=== PATIENT | female | born 1940 | race Caucasian/White ===

== ENCOUNTER 2023-01-20 16:14 | Outpatient (REF) | payer MEDICARE, SELFPAY ==
[2023-01-20 16:47] LABS: Bilirubin Urine NEGATIVE (NEGATIVE); Blood Urine TRACE-L (NEGATIVE); Clarity Urine CLEAR (CLEAR); Color Urine LT. YELLOW (YELLOW); Glucose Urine UA NEGATIVE (NEGATIVE); Ketones Urine NEGATIVE (NEGATIVE); Leukocyte Esterase Urine NEGATIVE (NEGATIVE); Nitrite Urine NEGATIVE (NEGATIVE); Protein Urine NEGATIVE (NEG/TRACE)
[2023-01-20 16:51] LABS: Urine Microscopic Indicated YES
[2023-01-20 17:11] LABS: Bacteria Urine NONE SEEN #/HPF (NONE SEEN); Cast Seen? NONE SEEN #/LPF (NONE SEEN); Crystals Seen? None Seen #/HPF (None Seen); Mucus Urine NONE SEEN (NONE SEEN); RBC Urine 0-2 #/HPF (0-2); Squamous Epithelial Cell Urine RARE #/LPF (NONE/RARE); WBC Urine NONE SEEN #/HPF (NONE SEEN)
[2023-01-20 17:12] LABS: Urine Culture Indicated NO
== END 2023-01-20 16:15 | disposition home or self-care (01) ==
LOC: LAB 16:14
PROVIDERS: Visit Provider Family Medicine
DX: R41.82 Altered mental status, unspecified (principal); Z87.440 Personal history of urinary (tract) infections
CPT/HCPCS: 81001

== ENCOUNTER 2023-06-04 21:00 | Outpatient (REF) | payer MEDICARE, SELFPAY ==
[2023-06-05 14:35] LABS: Bilirubin Urine NEGATIVE (NEGATIVE); Blood Urine SMALL (NEGATIVE); Clarity Urine CLEAR (CLEAR); Color Urine LT. YELLOW (YELLOW); Glucose Urine UA NEGATIVE (NEGATIVE); Ketones Urine NEGATIVE (NEGATIVE); Leukocyte Esterase Urine SMALL (NEGATIVE); Nitrite Urine NEGATIVE (NEGATIVE); Protein Urine NEGATIVE (NEG/TRACE)
== END 2023-06-05 13:13 | disposition home or self-care (01) ==
LOC: LAB 21:00
PROVIDERS: Visit Provider Family Medicine
DX: R35.0 Frequency of micturition (principal); R41.0 Disorientation, unspecified
CPT/HCPCS: 81003; 87086; 87150; 87186

== ENCOUNTER 2023-06-10 11:32 | Outpatient (OUT) | payer MEDICARE, SELFPAY ==
[2023-06-10 14:18] LABS: Hematocrit 30.6 % (36.0-48.0); Hemoglobin 9.2 g/dL (12.0-16.0); Mean Corpuscular HGB Conc 30.1 g/dL (29.9-35.2); Mean Corpuscular Hemoglobin 22.8 pg (26.7-34.0); Mean Corpuscular Volume 75.7 fL (81.0-99.0); Mean Platelet Volume 10.3 fL (9.5-13.5); Platelet Count 188 10^3/uL (150-450); Red Blood Count 4.04 10^6/uL (4.20-5.40); Red Cell Distribution Width 19.6 % (11.0-15.0); White Blood Count 5.1 10^3/uL (4.0-11.0)
[2023-06-10 15:52] LABS: Alanine Aminotransferase 11 U/L (14-59); Albumin Globulin Ratio 0.5; Albumin Level 2.7 g/dL (3.4-5.0); Alkaline Phosphatase 161 U/L (46-116); Anion Gap 6.6; Aspartate Amino Transferase 20 U/L (15-37); BUN Creatinine Ratio 14.5; Bilirubin Total 1.4 mg/dL (0.2-1.0); Calcium 8.7 mg/dL (8.5-10.1); Carbon Dioxide 28.1 mmol/L (21.0-32.0); Chloride 100 mmol/L (98-107); Estimated GFR (African America >60 (>=60); Estimated GFR (Non-African Ame >60 (>=60); Glucose 94 mg/dL (74-106); Potassium 3.7 mmol/L (3.5-5.1); Sodium 131 mmol/L (136-145); Total Protein 7.7 g/dL (6.4-8.2)
== END 2023-06-10 11:33 | disposition home or self-care (01) ==
LOC: LAB 11:35
PROVIDERS: Visit Provider Family Medicine
DX: I50.22 Chronic systolic (congestive) heart failure (principal); E83.42 Hypomagnesemia
CPT/HCPCS: 36415; 80053; 83735; 83880; 85027

== ENCOUNTER 2023-06-11 10:44 | Inpatient (IN) | payer MEDICARE, SELFPAY ==
[2023-06-11] VITALS (35 sets, daily range): BP systolic 111–140; BP diastolic 48–91; PULSE 74–166; RESP 13–29; TEMP 36.6–37.2; O2SAT 93–100; BMI 28.3; BMI 92.1
--- NOTE | 2023-06-11 10:56 | ECG_ITS ---
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
--- NOTE | 2023-06-11 10:57 | XR_ITS ---
The [address] [address] Patient Name: SUJATA BERRIOS MRN: [id number] date: 1940 Sex: F Assigned Patient Location: ER Current Patient Location: ED.MAIN Accession/Order Number: [id number] Exam Date: 06/11/2023 11:18 Report Date: 06/11/2023 11:40 At the request of: MICHELET TREVIZO Procedure: XR chest 1V EXAMINATION: XR chest 1V HISTORY: SOB COMPARISON: No relevant comparison available. FINDINGS: LUNGS: Dense opacities within lung bases obscuring the heart and diaphragm margins. VASCULATURE: No increased pulmonary vasculature. PLEURA: No pneumothorax. Pleural effusions cannot be excluded. CARDIAC: Obscured, but suspect cardiomegaly. MEDIASTINUM: No visible mass or adenopathy. BONES: No fracture or visible bone lesion. OTHER: Negative. XR/XR chest 1V IMPRESSION: 1. Complete opacification of the lower third of the lungs bilaterally of uncertain etiology; bilateral pleural effusions and atelectasis versus multifocal pneumonia. Underlying mass cannot be excluded. 2. Suspect cardiomegaly. Electronically authenticated by: MÓNICA DOBSON Date: 06/11/2023 11:40
--- NOTE | 2023-06-11 11:03 | ED_ITS ---
HPI - SOB/Dyspnea General Chief Complaint: Shortness of Breath/Dyspnea Stated Complaint: SOB Time Seen by Provider: 06/11/23 10:51 Source: other Source comment: EMS Mode of arrival: ambulance History of Present Illness HPI Narrative: 82-year-old female presents to the emergency department for shortness of breath. She lives in [facility] and apparently has gained approximately 20 pounds in the last month. She's had increasing shortness of breath and reportedly had a high BNP yesterday. She has not had a known fever. She is not complaining of any pain. Related Data Home Medications Medication Instructions Recorded Confirmed apixaban 5 mg tablet (Eliquis) 5 mg PO Q12H 06/11/23 06/11/23 citalopram 20 mg tablet 20 mg PO DAILY 06/11/23 06/11/23 furosemide 40 mg tablet 40 mg PO Q12H 06/11/23 06/11/23 levothyroxine 25 mcg tablet 25 mcg PO DAILY 06/11/23 06/11/23 losartan 25 mg tablet 25 mg PO DAILY 06/11/23 06/11/23 magnesium citrate,mag oxide 250 mg 400 mg PO DAILY 06/11/23 06/11/23 capsule melatonin 5 mg capsule 5 mg PO DAILY 06/11/23 06/11/23 metoprolol tartrate 25 mg tablet 25 mg PO DAILY 06/11/23 06/11/23 potassium chloride 20 mEq 20 meq PO DAILY 06/11/23 06/11/23 tablet,extended release(part/cryst) quetiapine 25 mg tablet 25 mg PO DAILY 06/11/23 06/11/23 Allergies Allergy/AdvReac Type Severity Reaction Status Date / Time black pepper Allergy Unknown Verified 06/11/23 10:52 Review of Systems ROS Narrative A ten point review of systems is negative except as noted above. Exam Narrative Exam Narrative: Nurses note and vital signs reviewed and patient is not hypoxic. General: The patient appears mildly dyspneic and is hard of hearing. Skin: Warm, dry, no pallor noted. There is no rash noted. Head: Normocephalic, atraumatic Eye: Normal conjunctiva, no drainage Ears, Nose, Mouth, and Throat: oral mucosa is moist. Nares patent. Cardiovascular: Regular Rate and Rhythm Respiratory: bilateral rhonchi present Back: non-tender GI: soft and nontender Musculoskeletal: bilateral lower extremity edema present Neurological: A&O, normal speech Psychiatric: Cooperative Constitutional Vital Signs, click to edit/add: Last Vital Signs Temp 98.9 F 06/11/23 10:46 Pulse 166 H 06/11/23 12:50 Resp 16 06/11/23 12:50 BP 140/84 06/11/23 12:01 Pulse Ox 96 06/11/23 12:50 O2 Del Method Nasal Cannula 06/11/23 11:18 O2 Flow Rate 4 06/11/23 11:18 Course Vital Signs Vital signs: Vital Signs Temperature 98.9 F 06/11/23 10:46 Pulse Rate 74 06/11/23 10:46 Respiratory Rate 24 06/11/23 10:46 Blood Pressure 111/77 06/11/23 10:46 Pulse Oximetry 94 L 06/11/23 10:46 Oxygen Delivery Method Nasal Cannula 06/11/23 10:46 Oxygen Delivery Flow Rate 4 06/11/23 10:46 Temperature 98.9 F 06/11/23 10:46 Pulse Rate 166 H 06/11/23 12:50 Respiratory Rate 16 06/11/23 12:50 Blood Pressure 140/84 06/11/23 12:01 Pulse Oximetry 96 06/11/23 12:50 Oxygen Delivery Method Nasal Cannula 06/11/23 11:18 Oxygen Delivery Flow Rate 4 06/11/23 11:18 MDM - SOB/Dyspnea MDM Narrative Medical decision making narrative: Congestive heart failure with bilateral pleural effusions is identified and she was given IV Lasix and she is being admitted. Findings are discussed with the patient. Differential Diagnosis Differential diagnosis: Likely congestive heart failure, community acquired pneumonia and other (COVID, pulmonary edema) Lab Data Attestation: I reviewed the patient's lab results. Labs: Lab Results 06/11/23 06/11/23 Range/Units 10:55 11:09 WBC 6.0 (4.0-11.0) 10^3/uL RBC 3.81 L (4.20-5.40) 10^6/uL Hgb 8.5 L (12.0-16.0) g/dL Hct 28.9 L (36.0-48.0) % MCV 75.9 L (81.0-99.0) fL MCH 22.3 L (26.7-34.0) pg MCHC 29.4 L (29.9-35.2) g/dL RDW 19.8 H (11.0-15.0) % Plt Count 181 (150-450) 10^3/uL MPV 10.8 (9.5-13.5) fL Neut % (Auto) 47.3 (43.0-75.0) % Lymph % (Auto) 30.4 (20.5-60.0) % [place] % (Auto) 17.6 H (1.7-12.0) % Eos % (Auto) 3.5 (0.9-7.0) % Baso % (Auto) 1.0 (0.2-2.0) % Neut # (Auto) 2.9 (1.4-6.5) 10^3/uL Lymph # (Auto) 1.8 (1.2-3.8) 10^3/uL [place] # (Auto) 1.1 H (0.3-0.8) 10^3/uL Eos # (Auto) 0.2 (0.0-0.7) 10^3/uL Baso # (Auto) 0.1 (0.0-0.1) 10^3/uL Abs Immat Gran (auto) 0.01 (0.00-0.03) 10^3/uL Imm/Tot Granulo (auto) 0.2 (0.0-0.5) % Sodium 142 (136-145) mmol/L Potassium 3.5 (3.5-5.1) mmol/L Chloride 103 (98-107) mmol/L Carbon Dioxide 30.8 (21.0-32.0) mmol/L Anion Gap 11.7 BUN 11.0 (7.0-18.0) mg/dL Creatinine 0.95 (0.55-1.02) mg/dL Est GFR ( Amer) >60 (>=60) Est GFR (Non-Af Amer) 56 L (>=60) BUN/Creatinine Ratio 11.6 Glucose 99 (74-106) mg/dL Calcium 8.4 L (8.5-10.1) mg/dL Troponin I High Sens 21.1 (4.0-51.3) pg/mL NT-Pro-B Natriuret Pep 3130.0 H* (<=1800.0) pg/mL Adenovirus (PCR) Not detected (NOT DETECTE) C. pneumoniae DNA (PCR) Not detected (NOT DETECTE) Coronavirus Type OC43 Not detected (NOT DETECTE) Coronavirus Type HKU1 Not detected (NOT DETECTE) Coronavirus Type 229E Not detected (NOT DETECTE) Coronavirus Type NL63 Not detected (NOT DETECTE) Human Metapneumovir PCR Not detected (NOT DETECTE) M. pneumoniae (PCR) Not detected (NOT DETECTE) Parainfluenza PCR Not detected (NOT DETECTE) Parainfluenza 2 (PCR) Not detected (NOT DETECTE) Parainfluenza 3 (PCR) Not detected (NOT DETECTE) Parainfluenza 4 (PCR) Not detected (NOT DETECTE) RSV (RT-PCR) Not detected (NOT DETECTE) Entero/Rhino (PCR) Not detected (NOT DETECTE) SARS-CoV-2 (PCR) Not detected (NOT DETECTE) Bordetella pertussis (PCR) Not detected (NOT DETECTE) B parapertussis DNA PCR Not detected (NOT DETECTE) Influenza Type A (PCR) Not detected (NOT DETECTE) Influenza Type B (PCR) Not detected (NOT DETECTE) Imaging Data CT scan - chest: Radiologist's impression: ITS Impressions Chest X-Ray 06/11/23 10:57 IMPRESSION: 1. Complete opacification of the lower third of the lungs bilaterally of uncertain etiology; bilateral pleural effusions and atelectasis versus multifocal pneumonia. Underlying mass cannot be excluded. 2. Suspect cardiomegaly. Electronically authenticated by: MÓNICA DOBSON Date: 06/11/2023 11:[address] 06/11/23 12:02 IMPRESSION: 1. Consistent with earlier same day chest radiograph, there are are bilateral pleural effusions, large on the right and moderately large on the left, with associated compressive atelectasis. There is also mild cardiomegaly, diffuse body wall edema and mild diffuse interstitial edema in the lungs. Overall findings most consistent with CHF and volume overload. 2. Airspace consolidation in the posterior lower lobes likely compressive atelectasis. Less likely pulmonary infection cannot be entirely excluded, correlate clinically. 3. Nodular pleural thickening lateral right upper lobe up to 5 mm, and small right middle lobe nodule of 4 mm. Six-month follow-up CT is recommended for stability assurance. 4. Limited upper abdominal images show contrast reflux into the intrahepatic IVC, as well as a small pericardial effusion, findings also consistent with CHF. The most caudal portions of the posterior costophrenic sulci are not fully included in the scanned volume. Electronically authenticated by: CAITIE SOTO Date: 06/11/2023 13:21 ECG Data Attestation: I personally reviewed and interpreted this ECG as follows: (EKG on my interpretation shows atrial fibrillation) Critical Care Time Critical Care Time Critical Care Time: Yes Total Critical Care Time: 35 Attestation: Due to the high probability of sudden and clinically significant deterioration in the patient's condition he/she required the highest level of my preparedness to intervene urgently I provided critical care time including documentation time, medication orders and management, reevaluation, vital sign assessment, ordering and reviewing of lab tests, ordering and reviewing of x-ray studies, and admission orders. Aggregate critical care time is 35 minutes including only time during which I was engaged in work directly related to his/her care and did not include time spent treating other patients simultaneously. Discharge Plan Discharge Chief Complaint: Shortness of Breath/Dyspnea Clinical Impression: Congestive heart failure, Pleural effusion Patient Disposition: Admitted As Inpatient Time of Disposition Decision: 13:29 Condition: Good
[2023-06-11 11:10] LABS: Basophils Absolute Auto 0.1 10^3/uL (0.0-0.1); Eosinophils Absolute Auto 0.2 10^3/uL (0.0-0.7); Eosinophils Percent Auto 3.5 % (0.9-7.0); Hematocrit 28.9 % (36.0-48.0); Hemoglobin 8.5 g/dL (12.0-16.0); Immature Granulocytes Abs Auto 0.01 10^3/uL (0.00-0.03); Immature Granulocytes Pct Auto 0.2 % (0.0-0.5); Lymphocytes Absolute Auto 1.8 10^3/uL (1.2-3.8); Lymphocytes Percent Auto 30.4 % (20.5-60.0); Mean Corpuscular HGB Conc 29.4 g/dL (29.9-35.2); Mean Corpuscular Hemoglobin 22.3 pg (26.7-34.0); Mean Corpuscular Volume 75.9 fL (81.0-99.0); Mean Platelet Volume 10.8 fL (9.5-13.5); Monocytes Absolute Auto 1.1 10^3/uL (0.3-0.8); Monocytes Percent Auto 17.6 % (1.7-12.0); Neutrophils Absolute Auto 2.9 10^3/uL (1.4-6.5); Neutrophils Percent Auto 47.3 % (43.0-75.0); Platelet Count 181 10^3/uL (150-450); Red Blood Count 3.81 10^6/uL (4.20-5.40); Red Cell Distribution Width 19.8 % (11.0-15.0)
[2023-06-11 11:18] LABS: Adenovirus NOT DETECTED (NOT DETECTE); Bordetella parapertussis NOT DETECTED (NOT DETECTE); Coronavirus 229E NOT DETECTED (NOT DETECTE); Coronavirus HKU1 NOT DETECTED (NOT DETECTE); Coronavirus NL63 NOT DETECTED (NOT DETECTE); Coronavirus OC43 NOT DETECTED (NOT DETECTE); Human Metapneumovirus NOT DETECTED (NOT DETECTE); Human Rhinovirus/Enterovirus NOT DETECTED (NOT DETECTE); Influenza A NOT DETECTED (NOT DETECTE); Influenza B NOT DETECTED (NOT DETECTE); Mycoplasma pneumoniae NOT DETECTED (NOT DETECTE); Parainfluenza Virus 1 NOT DETECTED (NOT DETECTE); Parainfluenza Virus 2 NOT DETECTED (NOT DETECTE); Parainfluenza Virus 3 NOT DETECTED (NOT DETECTE); Parainfluenza Virus 4 NOT DETECTED (NOT DETECTE); Respiratory Syncytial Virus NOT DETECTED (NOT DETECTE); SARS-CoV-2 NOT DETECTED (NOT DETECTE)
[2023-06-11 11:25] LABS: Anion Gap 11.7; BUN Creatinine Ratio 11.6; Calcium 8.4 mg/dL (8.5-10.1); Carbon Dioxide 30.8 mmol/L (21.0-32.0); Chloride 103 mmol/L (98-107); Estimated GFR (African America >60 (>=60); Estimated GFR (Non-African Ame 56 (>=60); Glucose 99 mg/dL (74-106); Potassium 3.5 mmol/L (3.5-5.1); Sodium 142 mmol/L (136-145)
[2023-06-11] MEDS: ALBUTEROL SULFATE 2.5 MG/3 ML VIAL NEB IH (11:26)
[2023-06-11 11:35] LABS: Troponin I High Sensitivity 21.1 pg/mL (4.0-51.3)
--- NOTE | 2023-06-11 12:02 | CT_ITS ---
The [address] [address] Patient Name: SUJATA BERRIOS MRN: [id number] date: 1940 Sex: F Assigned Patient Location: ER Current Patient Location: ER Accession/Order Number: [id number] Exam Date: 06/11/2023 12:28 Report Date: 06/11/2023 13:21 At the request of: MICHELET TREVIZO Procedure: CT chest w con CT chest w con CLINICAL: Abnormal CXR, with report of opacification at the lower third of the lungs bilaterally, underlying mass not excluded. COMPARISON: Chest radiograph 06/11/2023 TECHNIQUE: High-resolution thin section axial images were obtained from thoracic inlet to the level of the adrenals after administration of IV contrast. Dose reduction: mA and/or kV are were adjusted by automated exposure control software based upon patients height and weight. FINDINGS: Thoracic inlet and axillary structures are intact. There is diffuse body wall edema present. No mediastinal or hilar adenopathy by CT criteria. Heart is slightly enlarged. Small volume pericardial fluid is present along the anterior right heart border measuring 9 mm. There is contrast reflux into the intrahepatic IVC. Limited upper abdominal images do not show acute findings. The costophrenic sulci are not fully included in the scanned volume. Lung windows, consistent with earlier same day chest radiograph, show large right and moderately large left pleural effusions with compressive atelectasis in the posterior lower lobes on both sides. The pulmonary parenchymal pattern shows diffuse prominence consistent with interstitial edema. Pleural-based densities at the right upper lobe are suggestive of scarring, mildly nodular and asymmetric with the left side, measuring up to 5 mm in thickness. Central airways are patent. Small peripheral right middle lobe nodule of 4 mm series 3 image 53. Osseous structures show no acute traumatic or destructive lesion. CT/CT chest w con IMPRESSION: 1. Consistent with earlier same day chest radiograph, there are are bilateral pleural effusions, large on the right and moderately large on the left, with associated compressive atelectasis. There is also mild cardiomegaly, diffuse body wall edema and mild diffuse interstitial edema in the lungs. Overall findings most consistent with CHF and volume overload. 2. Airspace consolidation in the posterior lower lobes likely compressive atelectasis. Less likely pulmonary infection cannot be entirely excluded, correlate clinically. 3. Nodular pleural thickening lateral right upper lobe up to 5 mm, and small right middle lobe nodule of 4 mm. Six-month follow-up CT is recommended for stability assurance. 4. Limited upper abdominal images show contrast reflux into the intrahepatic IVC, as well as a small pericardial effusion, findings also consistent with CHF. The most caudal portions of the posterior costophrenic sulci are not fully included in the scanned volume. Electronically authenticated by: CAITIE SOTO Date: 06/11/2023 13:21
--- NOTE | 2023-06-11 12:33 | ED.GENADUL1 ---
Documented by User: CAREY Johnson 06/11/23 12:34 HPI - General Adult General Chief complaint: Shortness of Breath/Dyspnea Stated complaint: SOB Time Seen by Provider: 06/11/23 10:51 Source: other Source information: EMS Mode of arrival: ambulance Related Data Home Medications Medication Instructions Recorded Confirmed apixaban 5 mg tablet (Eliquis) 5 mg PO Q12H 06/11/23 06/11/23 citalopram 20 mg tablet 20 mg PO DAILY 06/11/23 06/11/23 furosemide 40 mg tablet 40 mg PO Q12H 06/11/23 06/11/23 levothyroxine 25 mcg tablet 25 mcg PO DAILY 06/11/23 06/11/23 losartan 25 mg tablet 25 mg PO DAILY 06/11/23 06/11/23 magnesium citrate,mag oxide 250 mg 400 mg PO DAILY 06/11/23 06/11/23 capsule melatonin 5 mg capsule 5 mg PO DAILY 06/11/23 06/11/23 metoprolol tartrate 25 mg tablet 25 mg PO DAILY 06/11/23 06/11/23 potassium chloride 20 mEq 20 meq PO DAILY 06/11/23 06/11/23 tablet,extended release(part/cryst) quetiapine 25 mg tablet 25 mg PO DAILY 06/11/23 06/11/23 Allergies Allergy/AdvReac Type Severity Reaction Status Date / Time black pepper Allergy Unknown Verified 06/11/23 10:52 Exam Constitutional Vital Signs, click to edit/add: Last Vital Signs Temp 98.9 F 06/11/23 10:46 Pulse 166 H 06/11/23 12:50 Resp 16 06/11/23 12:50 BP 140/84 06/11/23 12:01 Pulse Ox 96 06/11/23 12:50 O2 Del Method Nasal Cannula 06/11/23 11:18 O2 Flow Rate 06/11/23 11:18 Course Vital Signs Vital signs: Vital Signs Temperature 98.9 F 06/11/23 10:46 Pulse Rate 74 06/11/23 10:46 Respiratory Rate 24 06/11/23 10:46 Blood Pressure 111/77 06/11/23 10:46 Pulse Oximetry 94 L 06/11/23 10:46 Oxygen Delivery Method Nasal Cannula 06/11/23 10:46 Oxygen Delivery Flow Rate 06/11/23 10:46 Temperature 98.9 F 06/11/23 10:46 Pulse Rate 166 H 06/11/23 12:50 Respiratory Rate 16 06/11/23 12:50 Blood Pressure 140/84 06/11/23 12:01 Pulse Oximetry 96 06/11/23 12:50 Oxygen Delivery Method Nasal Cannula 06/11/23 11:18 Oxygen Delivery Flow Rate 4 06/11/23 11:18 Medical Decision Making Lab Data Labs: Lab Results 06/11/23 06/11/23 Range/Units 10:55 11:09 WBC 6.0 (4.0-11.0) 10^3/uL RBC 3.81 L (4.20-5.40) 10^6/uL Hgb 8.5 L (12.0-16.0) g/dL Hct 28.9 L (36.0-48.0) % MCV 75.9 L (81.0-99.0) fL MCH 22.3 L (26.7-34.0) pg MCHC 29.4 L (29.9-35.2) g/dL RDW 19.8 H (11.0-15.0) % Plt Count 181 (150-450) 10^3/uL MPV 10.8 (9.5-13.5) fL Neut % (Auto) 47.3 (43.0-75.0) % Lymph % (Auto) 30.4 (20.5-60.0) % [place] % (Auto) 17.6 H (1.7-12.0) % Eos % (Auto) 3.5 (0.9-7.0) % Baso % (Auto) 1.0 (0.2-2.0) % Neut # (Auto) 2.9 (1.4-6.5) 10^3/uL Lymph # (Auto) 1.8 (1.2-3.8) 10^3/uL [place] # (Auto) 1.1 H (0.3-0.8) 10^3/uL Eos # (Auto) 0.2 (0.0-0.7) 10^3/uL Baso # (Auto) 0.1 (0.0-0.1) 10^3/uL Abs Immat Gran (auto) 0.01 (0.00-0.03) 10^3/uL Imm/Tot Granulo (auto) 0.2 (0.0-0.5) % Sodium 142 (136-145) mmol/L Potassium 3.5 (3.5-5.1) mmol/L Chloride 103 (98-107) mmol/L Carbon Dioxide 30.8 (21.0-32.0) mmol/L Anion Gap 11.7 BUN 11.0 (7.0-18.0) mg/dL Creatinine 0.95 (0.55-1.02) mg/dL Est GFR ( Amer) >60 (>=60) Est GFR (Non-Af Amer) 56 L (>=60) BUN/Creatinine Ratio 11.6 Glucose 99 (74-106) mg/dL Calcium 8.4 L (8.5-10.1) mg/dL Troponin I High Sens 21.1 (4.0-51.3) pg/mL NT-Pro-B Natriuret Pep 3130.0 H* (<=1800.0) pg/mL Adenovirus (PCR) Not detected (NOT DETECTE) C. pneumoniae DNA (PCR) Not detected (NOT DETECTE) Coronavirus Type OC43 Not detected (NOT DETECTE) Coronavirus Type HKU1 Not detected (NOT DETECTE) Coronavirus Type 229E Not detected (NOT DETECTE) Coronavirus Type NL63 Not detected (NOT DETECTE) Human Metapneumovir PCR Not detected (NOT DETECTE) M. pneumoniae (PCR) Not detected (NOT DETECTE) Parainfluenza PCR Not detected (NOT DETECTE) Parainfluenza 2 (PCR) Not detected (NOT DETECTE) Parainfluenza 3 (PCR) Not detected (NOT DETECTE) Parainfluenza 4 (PCR) Not detected (NOT DETECTE) RSV (RT-PCR) Not detected (NOT DETECTE) Entero/Rhino (PCR) Not detected (NOT DETECTE) SARS-CoV-2 (PCR) Not detected (NOT DETECTE) Bordetella pertussis (PCR) Not detected (NOT DETECTE) B parapertussis DNA PCR Not detected (NOT DETECTE) Influenza Type A (PCR) Not detected (NOT DETECTE) Influenza Type B (PCR) Not detected (NOT DETECTE) Discharge Plan Discharge Chief Complaint: Shortness of Breath/Dyspnea Clinical Impression: Congestive heart failure, Pleural effusion Patient Disposition: Admitted As Inpatient Time of Disposition Decision: 13:29 Condition: Good Documented by User: Karlos Becerril MD 06/11/23 13:31 HPI - General Adult General Chief complaint: Shortness of Breath/Dyspnea Stated complaint: SOB Time Seen by Provider: 06/11/23 10:51 Related Data Home Medications Medication Instructions Recorded Confirmed apixaban 5 mg tablet (Eliquis) 5 mg PO Q12H 06/11/23 06/11/23 citalopram 20 mg tablet 20 mg PO DAILY 06/11/23 06/11/23 furosemide 40 mg tablet 40 mg PO Q12H 06/11/23 06/11/23 levothyroxine 25 mcg tablet 25 mcg PO DAILY 06/11/23 06/11/23 losartan 25 mg tablet 25 mg PO DAILY 06/11/23 06/11/23 magnesium citrate,mag oxide 250 mg 400 mg PO DAILY 06/11/23 06/11/23 capsule melatonin 5 mg capsule 5 mg PO DAILY 06/11/23 06/11/23 metoprolol tartrate 25 mg tablet 25 mg PO DAILY 06/11/23 06/11/23 potassium chloride 20 mEq 20 meq PO DAILY 06/11/23 06/11/23 tablet,extended release(part/cryst) quetiapine 25 mg tablet 25 mg PO DAILY 06/11/23 06/11/23 Allergies Allergy/AdvReac Type Severity Reaction Status Date / Time black pepper Allergy Unknown Verified 06/11/23 10:52 Exam Constitutional Vital Signs, click to edit/add: Last Vital Signs Temp 98.9 F 06/11/23 10:46 Pulse 166 H 06/11/23 12:50 Resp 16 06/11/23 12:50 BP 140/84 06/11/23 12:01 Pulse Ox 96 06/11/23 12:50 O2 Del Method Nasal Cannula 06/11/23 11:18 O2 Flow Rate 4 06/11/23 11:18 Course Vital Signs Vital signs: Vital Signs Temperature 98.9 F 06/11/23 10:46 Pulse Rate 74 06/11/23 10:46 Respiratory Rate 24 06/11/23 10:46 Blood Pressure 111/77 06/11/23 10:46 Pulse Oximetry 94 L 06/11/23 10:46 Oxygen Delivery Method Nasal Cannula 06/11/23 10:46 Oxygen Delivery Flow Rate 4 06/11/23 10:46 Temperature 98.9 F 06/11/23 10:46 Pulse Rate 166 H 06/11/23 12:50 Respiratory Rate 16 06/11/23 12:50 Blood Pressure 140/84 06/11/23 12:01 Pulse Oximetry 96 06/11/23 12:50 Oxygen Delivery Method Nasal Cannula 06/11/23 11:18 Oxygen Delivery Flow Rate 4 06/11/23 11:18 Medical Decision Making MDM Narrative Medical decision making narrative: Congestive heart failure with bilateral pleural effusions is found on her workup including CAT scan and the chest. She's given IV Lasix and is being admitted. Findings are discussed with the patient. Differential Diagnosis Differential Diagnosis: congestive heart failure, pulmonary edema, Covid, pneumonia, influenza Lab Data Lab results reviewed: Yes I reviewed the patient's lab results Labs: Lab Results 06/11/23 06/11/23 Range/Units 10:55 11:09 WBC 6.0 (4.0-11.0) 10^3/uL RBC 3.81 L (4.20-5.40) 10^6/uL Hgb 8.5 L (12.0-16.0) g/dL Hct 28.9 L (36.0-48.0) % MCV 75.9 L (81.0-99.0) fL MCH 22.3 L (26.7-34.0) pg MCHC 29.4 L (29.9-35.2) g/dL RDW 19.8 H (11.0-15.0) % Plt Count 181 (150-450) 10^3/uL MPV 10.8 (9.5-13.5) fL Neut % (Auto) 47.3 (43.0-75.0) % Lymph % (Auto) 30.4 (20.5-60.0) % [place] % (Auto) 17.6 H (1.7-12.0) % Eos % (Auto) 3.5 (0.9-7.0) % Baso % (Auto) 1.0 (0.2-2.0) % Neut # (Auto) 2.9 (1.4-6.5) 10^3/uL Lymph # (Auto) 1.8 (1.2-3.8) 10^3/uL [place] # (Auto) 1.1 H (0.3-0.8) 10^3/uL Eos # (Auto) 0.2 (0.0-0.7) 10^3/uL Baso # (Auto) 0.1 (0.0-0.1) 10^3/uL Abs Immat Gran (auto) 0.01 (0.00-0.03) 10^3/uL Imm/Tot Granulo (auto) 0.2 (0.0-0.5) % Sodium 142 (136-145) mmol/L Potassium 3.5 (3.5-5.1) mmol/L Chloride 103 (98-107) mmol/L Carbon Dioxide 30.8 (21.0-32.0) mmol/L Anion Gap 11.7 BUN 11.0 (7.0-18.0) mg/dL Creatinine 0.95 (0.55-1.02) mg/dL Est GFR ( Amer) >60 (>=60) Est GFR (Non-Af Amer) 56 L (>=60) BUN/Creatinine Ratio 11.6 Glucose 99 (74-106) mg/dL Calcium 8.4 L (8.5-10.1) mg/dL Troponin I High Sens 21.1 (4.0-51.3) pg/mL NT-Pro-B Natriuret Pep 3130.0 H* (<=1800.0) pg/mL Adenovirus (PCR) Not detected (NOT DETECTE) C. pneumoniae DNA (PCR) Not detected (NOT DETECTE) Coronavirus Type OC43 Not detected (NOT DETECTE) Coronavirus Type HKU1 Not detected (NOT DETECTE) Coronavirus Type 229E Not detected (NOT DETECTE) Coronavirus Type NL63 Not detected (NOT DETECTE) Human Metapneumovir PCR Not detected (NOT DETECTE) M. pneumoniae (PCR) Not detected (NOT DETECTE) Parainfluenza PCR Not detected (NOT DETECTE) Parainfluenza 2 (PCR) Not detected (NOT DETECTE) Parainfluenza 3 (PCR) Not detected (NOT DETECTE) Parainfluenza 4 (PCR) Not detected (NOT DETECTE) RSV (RT-PCR) Not detected (NOT DETECTE) Entero/Rhino (PCR) Not detected (NOT DETECTE) SARS-CoV-2 (PCR) Not detected (NOT DETECTE) Bordetella pertussis (PCR) Not detected (NOT DETECTE) B parapertussis DNA PCR Not detected (NOT DETECTE) Influenza Type A (PCR) Not detected (NOT DETECTE) Influenza Type B (PCR) Not detected (NOT DETECTE) ECG Data Attestation: I personally reviewed and interpreted this ECG as follows: (EKG on my interpretation shows atrial fibrillation) Critical Care Time Critical Care Time Critical Care Time: Yes Total Critical Care Time: 35 Attestation: Due to the high probability of sudden and clinically significant deterioration in the patient's condition he/she required the highest level of my preparedness to intervene urgently I provided critical care time including documentation time, medication orders and management, reevaluation, vital sign assessment, ordering and reviewing of lab tests, ordering and reviewing of x-ray studies, and admission orders. Aggregate critical care time is 35 minutes including only time during which I was engaged in work directly related to his/her care and did not include time spent treating other patients simultaneously. Discharge Plan Discharge Chief Complaint: Shortness of Breath/Dyspnea Clinical Impression: Congestive heart failure, Pleural effusion Patient Disposition: Admitted As Inpatient Time of Disposition Decision: 13:29 Condition: Good
[2023-06-11] MEDS: FUROSEMIDE 40 MG/4 ML VIAL IVP ×2 (12:44→21:23)
--- NOTE | 2023-06-11 14:24 | CA_ITS ---
Patient Name: SUJATA BERRIOS MR#: [id number] : 1940 Exam Date: 06/11/2023 Ordering Doctor: Dora Mayer . ECHOCARDIOGRAM REPORT PROCEDURE: CA ECHO DOPPLER COMPLETE INDICATIONS: shortness of breath, elevated proBNP COMPARISON: None. DESCRIPTION: COMPLETE ECHOCARDIOGRAM Real-time transthoracic echocardiography with 2D, M-mode, spectral and color flow Doppler performed. QUALITY: Technical quality was good. LEFT VENTRICLE: Normal chamber size. Borderline left ventricular hypertrophy. Low normal systolic function. LV EF: Calculated left ventricular ejection fraction is 50%. DIASTOLIC: Not adequately assessed due to heart rhythm. ATRIAL SEPTUM: LEFT ATRIUM: Severe dilatation. RIGHT ATRIUM: Severe dilatation. RIGHT VENTRICLE: Severely dilated. Severely reduced right ventricular systolic function. TRICUSPID VALVE: Normal mobility and thickness. No stenosis with poor coaptation of the leaflets and severe regurgitation. Mild pulmonary hypertension. RVSP 40 mmHg MITRAL VALVE: Normal mobility and thickness. No evidence of mitral valve stenosis. There is no mitral annular calcification. Moderate mitral regurgitation. AORTIC VALVE: Normal trileaflet appearance. Thickened aortic valve. Normal leaflet mobility. No evidence of aortic valve stenosis. Trivial aortic regurgitation. AORTIC ROOT: Normal diameter and appearance. PULMONIC VALVE: Normal thickness and mobility. No stenosis. Mild regurgitation. PERICARDIUM: Moderate circumferential pericardial effusion, measuring 2.2cm at its greatest dimension, No evidence of cardiac tamponade. IVC: Severe dilatation. Measuring 3.4 cm with no collapse. PLEURA: Small pleural effusion. CONCLUSION: 1. The left ventricle is normal in size and exhibits low normal systolic function. LVEF is 50%. 2. Right ventricle is severely dilated with severely reduced systolic function. 3. Severe biatrial dilatation. 4. Mild coaptation of the tricuspid leaflets with severe regurgitation. 5. Moderate mitral regurgitation. 6. Mildly elevated right-sided pressures. RVSP of 40 mmHg which could be underestimated due to the above findings. 7. Moderate circumferential pericardial effusion with no echocardiographic signs of tamponade physiology. Adult Echocardiography Procedure Report Left Ventricle LVEDD (3.7 - 5.6 cm): 4.72 cm LVESD (2.2 - 4.0 cm): 3.36 cm LVIVS thickness (0.6 - 1.2 cm): 1.09 cm LVPW thickness (0.5 - 1.0 cm): 1.02 cm e': 0.11 m/s E - e': 10.81 LVOT Max Gradient: 1.55 mm[Hg] LVOT Area (cm2): 0.62 m/s Peak Velocity (LVOT): 0.62 m/s Mean Velocity (LVOT): 0.43 m/s LVOT Diameter 2.01 cm Left Ventricular Ejection Fraction: 50 % Left Atrium LA Volume Index (2D A2C): 93.21 ml/m2 Left Atrium Systolic Dimension: 4.57 cm Mitral Valve Mitral Valve E-Wave Peak Velocity: 1.15 m/s Right Ventricle RV Internal Diastolic Dimension: 3.74 cm Aorta AO Root Diam: 2.86 cm Ascending Ao Diam: 3.00 cm Aortic Valve AoV Area (Peak Roberto): 1.31 cm2, 1.31 cm2 AoV Area (VTI): 1.43 cm2, 1.43 cm2 Peak Velocity(Antegrade Flow): 1.51 m/s Peak Gradient(Antegrade Flow): 9.09 mm[Hg] Mean Velocity(Antegrade Flow): 1.01 m/s Mean Gradient(Antegrade Flow): 4.68 mm[Hg] Velocity Time Integral: 30.73 cm Tricuspid Valve Peak Velocity (Regurgitant Flow): 2.31 m/s, 2.19 m/s, 2.52 m/s Pulmonic Valve Peak Velocity: 0.85 m/s Peak Gradient: 2.77 mm[Hg], 2.96 mm[Hg] Right Atrium Right Atrium Systolic Pressure: 93.96 ml, 93.96 ml Dictated by: Carlos Phillips M.D. on 06/11/2023 at 17:50 Approved by: Carlos Phillips M.D. on 06/11/2023 at 17:57
--- NOTE | 2023-06-11 14:33 | PM.HP ---
H&P: HPI History of Present Illness Chief complaint: SOB/CHF Narrative: patient is an 82-year-old female with past medical history of atrial fibrillation with RVR on current chronic anticoagulation, hypertension, agitation, hypothyroidism who presents to the Emergency Room today from a sister living facility for increased lower extremity swelling, shortness of breath. It appears that her lower extremity edema is chronic as she is taking a diuretic, Lasix but she is uncertain as to why. She says she has home health that comes in and wraps her legs once a week. She reports she does not see a security operations center analyst she does see a primary care physician Dr. Light. She says it's been over forty years since she's had an ultrasound of her heart and several years since she has been hospitalized.patient was found to have a large left and right pleural effusion noted on chest x-ray with increased weight of greater than 20 pounds over the last few months. She has extreme sensitivity and her lower extremities and just with light touch, screamed at me for even touching them. However she has compression garments on and her knees wrapped. Patient denies any fevers chills or sick contacts. She had an elevated proBNP, was admitted for acute on chronic congestive heart failure, with hypoxia and was requiring approximately 4 L to maintain saturations above ninety percent. Patient denies having any oxygen at home. Also with discussions on code status with her she would like to continue to be a full code. Review of Systems ROS Narrative ROS: a complete review of systems were reviewed with patient and are positive as below or listed in History of Chief Complaint. General: no fever, chills, night sweats Head: no headache, trauma, visual changes, nausea or vomiting Skin: no reported rashes, itching or sores Eyes: no blurriness of vision Ears: no reported hearing loss, vertigo, earache, or tinnitus Throat: no sore throat, hoarseness, swelling of neck, or tongue pain Heart: no chest pain Lungs: shortness of breath, no cough GI: no diarrhea or vomiting/nausea Urinary: no urinary urgency, frequency or pain Neuro: no numbness or tingling, just chronic pain and swelling of the legs HEM: no bleeding issues or bruising ENDO: thyroid problems Psych: anxiety and depression [facility] Medical History (Updated 06/11/23 @ 16:47 by Dora Mayer DO) Hypothyroidism (acquired) ?E03.9 - Hypothyroidism, unspecified (ICD-10) CVA (cerebral vascular accident) ?I63.9 - Cerebral infarction, unspecified (ICD-10) Hypertension ?I10 - Essential (primary) hypertension (ICD-10) Atrial fibrillation ?I48.91 - Unspecified atrial fibrillation (ICD-10) Surgical History H/O bilateral hip replacements ?Z96.643 - Presence of artificial hip joint, bilateral (ICD-10) History of bilateral knee replacement ?Z96.653 - Presence of artificial knee joint, bilateral (ICD-10) Family History Father Family history of myocardial infarction Family history of hypertension Mother Family history of myocardial infarction Family history of hypertension Social History Within the past year, how often did you have a drink containing alcohol: 2-3 times a week Smoking status: Never smoker Non-prescribed substance use: denies use Highest level of school completed/degree received: Master's degree Meds Home Medications and Allergies Home Medications Medication Instructions Recorded Confirmed Type apixaban 5 mg tablet (Eliquis) 5 mg PO Q12H 06/11/23 06/11/23 History citalopram 20 mg tablet 20 mg PO DAILY 06/11/23 06/11/23 History furosemide 40 mg tablet 40 mg PO Q12H 06/11/23 06/11/23 History levothyroxine 25 mcg tablet 25 mcg PO DAILY 06/11/23 06/11/23 History losartan 25 mg tablet 25 mg PO DAILY 06/11/23 06/11/23 History magnesium oxide 400 mg PO .qod 06/11/23 06/11/23 History melatonin 5 mg capsule 5 mg PO QPM 06/11/23 06/11/23 History metoprolol tartrate 25 mg tablet 25 mg PO TID 06/11/23 06/11/23 History potassium chloride 20 mEq 20 meq PO DAILY 06/11/23 06/11/23 History tablet,extended release(part/cryst) quetiapine 25 mg tablet 25 mg PO DAILY 02/01/24 02/01/24 History quetiapine 25 mg tablet (Seroquel) 50 mg PO QPM 06/11/23 06/11/23 History Allergies Allergy/AdvReac Type Severity Reaction Status Date / Time black pepper Allergy Unknown Verified 06/11/23 10:52 Exam Narrative Exam Narrative: General: Patient is alert, and oriented to person, place and time; appears very angry and irritated that she has to answer questions and even says that i'm trying to hurt her when i'm barely touching her legs, poor hygiene Head: atraumatic, acephalic Mouth: poor dentition Eyes: PERRLA, no nystagmus present, conjunctiva clear, no scleral icterus Ears: normal gross auditory acuity Heart: irregular rate and rhythm, no murmurs/rubs/gallops Lungs: no audible wheezes, but crackles sounds all lung ashby Abdomen: Normal audible bowel sounds, no distension Musculoskeletal: difficulty assessing pitting edema due to patients pain level, but at least 2+ up to groin Neuro: CN II-X grossly intact Constitutional Vital Signs, click to edit/add: Last Vital Signs Temp 98.9 F 06/11/23 10:46 Pulse 82 06/11/23 14:10 Resp 18 06/11/23 14:10 BP 126/91 06/11/23 14:00 Pulse Ox 97 06/11/23 13:20 O2 Del Method Nasal Cannula 06/11/23 11:18 O2 Flow Rate 4 06/11/23 11:18 Results Labs Labs: Short CBC 06/11/23 Range/Units 10:55 WBC 6.0 (4.0-11.0) 10^3/uL Hgb 8.5 L (12.0-16.0) g/dL Hct 28.9 L (36.0-48.0) % Plt Count 181 (150-450) 10^3/uL BMP 06/11/23 10:55 Sodium 142 Potassium 3.5 Chloride 103 Carbon Dioxide 30.8 BUN 11.0 Creatinine 0.95 Glucose 99 Calcium 8.4 L Assessment and Plan Assessment and Plan (1) Acute congestive heart failure: Assessment and Plan: patient is not best historian, will place on Lasix 40 mg IV twice a day, fifteen hundred mL of fluid restriction with a 2 g sodium resection. Monitor ins and outs daily, daily weights. Echocardiogram pending. Cardiology consult given she does not have a security operations center analyst and with the significant amount of pleural effusions and peripheral edema would appreciate their expertise. Continue to monitor electrolytes with diuresis. Patient had elevated proBNP three thousand one hundred and thirty. Normal troponin, patient is requiring nasal cannula oxygen to maintain saturations greater than ninety secondary to large pleural effusions seen on chest x-ray and CT. Hopeful that diuresis shall improve this. May need to add on metolazone or consider substitution of Bumex tomorrow. Qualifiers: Heart failure type: unspecified Qualified Code(s): I50.9 - Heart failure, unspecified (2) Pleural effusion: Assessment and Plan: diuresis (3) Hypoxia: Assessment and Plan: secondary to #1 and #2 (4) Hypertension: Assessment and Plan: continue losartan, metoprolol Qualifiers: Hypertension type: unspecified Qualified Code(s): I10 - Essential (primary) hypertension (5) Atrial fibrillation: Assessment and Plan: continue Eliquis and metoprolol for rate management. Qualifiers: Atrial fibrillation type: longstanding persistent Qualified Code(s): I48.11 - Longstanding persistent atrial fibrillation (6) Hypothyroidism (acquired): Assessment and Plan: check TFTs Plan patient is a full code Will continue Eliquis for DVT prophylaxis Patient is inpatient status and I expect patient to cross 2 midnights for her medical care.
[2023-06-11 14:51] LABS: INR 1.33; Partial Thromboplastin Time 33.8 sec (22.3-36.2); Prothrombin Time 13.9 sec (9.0-11.6)
[2023-06-11 15:07] LABS: Magnesium 1.9 mg/dL (1.8-2.4); Thyroid Stimulating Hormone 3.867 uIU/mL (0.358-3.740)
--- NOTE | 2023-06-11 16:26 | PHOTOS ---
right knee/thigh
[2023-06-11] MEDS: QUETIAPINE FUMARATE 25 MG TABLET 50 MG PO (21:23)
[2023-06-11] MEDS: APIXABAN 5 MG TABLET PO (21:24)
[2023-06-11] MEDS: METOPROLOL TARTRATE 25 MG TABLET PO (21:26)
[2023-06-12] VITALS (21 sets, daily range): BP systolic 104–129; BP diastolic 48–80; PULSE 79–112; RESP 12–20; TEMP 36.6–36.7; O2SAT 90–93
[2023-06-12] MEDS: METOPROLOL TARTRATE 25 MG TABLET PO ×3 (05:11→21:36)
[2023-06-12 05:23] LABS: Basophils Percent Auto 0.2 % (0.2-2.0); Hematocrit 28.4 % (36.0-48.0); Hemoglobin 8.5 g/dL (12.0-16.0); Immature Granulocytes Abs Auto 0.02 10^3/uL (0.00-0.03); Immature Granulocytes Pct Auto 0.5 % (0.0-0.5); Lymphocytes Percent Auto 24.3 % (20.5-60.0); Mean Corpuscular HGB Conc 29.9 g/dL (29.9-35.2); Mean Corpuscular Hemoglobin 22.3 pg (26.7-34.0); Mean Corpuscular Volume 74.5 fL (81.0-99.0); Monocytes Absolute Auto 0.4 10^3/uL (0.3-0.8); Monocytes Percent Auto 8.5 % (1.7-12.0); Neutrophils Absolute Auto 2.8 10^3/uL (1.4-6.5); Neutrophils Percent Auto 66.5 % (43.0-75.0); Platelet Count 168 10^3/uL (150-450); Red Blood Count 3.81 10^6/uL (4.20-5.40); Red Cell Distribution Width 19.7 % (11.0-15.0); White Blood Count 4.2 10^3/uL (4.0-11.0)
[2023-06-12] MEDS: LEVOTHYROXINE SODIUM 25 MCG TABLET PO (05:38)
[2023-06-12 05:47] LABS: Estimated Average Glucose 111 mg/dL; Glycohemoglobin A1C 5.5 % (4.5-6.2)
[2023-06-12 05:52] LABS: Alanine Aminotransferase 10 U/L (14-59); Albumin Globulin Ratio 0.5; Albumin Level 2.4 g/dL (3.4-5.0); Alkaline Phosphatase 149 U/L (46-116); Anion Gap 8.4; Aspartate Amino Transferase 11 U/L (15-37); BUN Creatinine Ratio 15.4; Bilirubin Total 1.1 mg/dL (0.2-1.0); Calcium 8.3 mg/dL (8.5-10.1); Carbon Dioxide 30.1 mmol/L (21.0-32.0); Chloride 105 mmol/L (98-107); Chol HDL Ratio 2.8; Cholesterol 95 mg/dL (<=200); Estimated GFR (African America >60 (>=60); Estimated GFR (Non-African Ame 59 (>=60); Globulin 4.8 g/dL; Glucose 130 mg/dL (74-106); HDL Cholesterol 34 mg/dL (40-60); Potassium 3.5 mmol/L (3.5-5.1); Sodium 140 mmol/L (136-145); Total Protein 7.2 g/dL (6.4-8.2); Triglycerides 27 mg/dL (<=150); VLDL CHOLESTEROL 5.4 mg/dL
--- NOTE | 2023-06-12 06:00 | XR_ITS ---
The [address] [address] Patient Name: SUJATA BERRIOS MRN: [id number] date: 1940 Sex: F Assigned Patient Location: [place] Current Patient Location: [place] Accession/Order Number: [id number] Exam Date: 06/12/2023 06:15 Report Date: 06/12/2023 06:39 At the request of: DOLLY SEYMOUR Procedure: XR chest 1V EXAMINATION: XR chest 1V HISTORY: chf, pleural effusions COMPARISON: XR chest 06/11/2023 FINDINGS: LUNGS: Bilateral lung base opacities obscuring the heart and diaphragm margins. VASCULATURE: No increased pulmonary vasculature. PLEURA: Bilateral pleural effusions. CARDIAC: Grossly stable cardiomegaly. MEDIASTINUM: No visible mass or adenopathy. BONES: No fracture or visible bone lesion. OTHER: Negative. XR/XR chest 1V IMPRESSION: 1. Grossly stable cardiomegaly and bilateral pleural effusions. 2. Slightly decreased bibasilar atelectasis/infiltrates. Electronically authenticated by: MÓNICA DOBSON Date: 06/12/2023 06:39
--- NOTE | 2023-06-12 09:12 | PM.PN ---
Progress Note: Subjective Subjective Interval history: patient is sitting up eating breakfast at the time of exam today. She still admits to some shortness of breath and lower extremity edema. Otherwise no fever chills nausea vomiting or diarrhea. Discussed cardiology consult with her today and the severity of her echocardiogram. Patient has no other questions or concerns. Exam Narrative Exam Narrative: General: Patient is alert, and oriented to person, place and time Head: atraumatic, acephalic Mouth: poor dentition Eyes: PERRLA, no nystagmus present, conjunctiva clear, no scleral icterus Ears: impaired auditory acuity Heart: irregular rate and rhythm, no murmurs/rubs/gallops Lungs: no audible wheezes, but crackles sounds all lung ashby Abdomen: Normal audible bowel sounds, no distension Musculoskeletal: difficulty assessing pitting edema due to patients pain level, but at least 2+ up to groin to feet Neuro: CN II-X grossly intact Constitutional Vital Signs, click to edit/add: Last Vital Signs Temp 98.1 F 06/12/23 08:21 Pulse 96 H 06/12/23 08:26 Resp 16 06/12/23 08:21 BP 114/48 L 06/12/23 08:21 Pulse Ox 92 L 06/12/23 08:21 O2 Del Method Nasal Cannula 06/12/23 08:21 O2 Flow Rate 1.5 06/12/23 08:21 FiO2 1.5 06/12/23 04:56 Progress Note: Objective Labs Labs: Short CBC 06/11/23 06/12/23 Range/Units 10:55 04:51 WBC 6.0 4.2 (4.0-11.0) 10^3/uL Hgb 8.5 L 8.5 L (12.0-16.0) g/dL Hct 28.9 L 28.4 L (36.0-48.0) % Plt Count 181 168 (150-450) 10^3/uL BMP 06/11/23 06/12/23 10:55 04:51 Sodium 142 140 Potassium 3.5 3.5 Chloride 103 105 Carbon Dioxide 30.8 30.1 BUN 11.0 14.0 Creatinine 0.95 0.91 Glucose 99 130 H Calcium 8.4 L 8.3 L Liver Function 06/12/23 Range/Units 04:51 Total Bilirubin 1.1 H (0.2-1.0) mg/dL AST 11 L (15-37) U/L ALT 10 L (14-59) U/L Alkaline Phosphatase 149 H (46-116) U/L Albumin 2.4 L (3.4-5.0) g/dL Progress Note: A&P Assessment and Plan (1) Acute congestive heart failure: Assessment and Plan: fifteen hundred mL of fluid restriction with a 2 g sodium resection. Monitor ins and outs daily, daily weights. Echocardiogram showed normal systolic function of fifty percent with right ventricle severely dilated with a severe reduced systolic function, severe biatrial dilation and moderate mitral regurg and mildly elevated right-sided pressures, moderate pericardial effusion. Cardiology consult given she does not have a inspector rubber stamp die and with the significant amount of pleural effusions and peripheral edema would appreciate their expertise. Continue to monitor electrolytes with diuresis. Patient had elevated proBNP 5442. Normal troponin, patient is requiring nasal cannula oxygen to maintain saturations greater than ninety secondary to large pleural effusions seen on chest x-ray and CT. Will place on Bumex 2mg IV BID. stop lasix Qualifiers: Heart failure type: unspecified Qualified Code(s): I50.9 - Heart failure, unspecified (2) Pleural effusion: Assessment and Plan: diuresis and oxygen therapy (3) Hypoxia: Assessment and Plan: secondary to #1 and #2 (4) Hypertension: Assessment and Plan: continue losartan, metoprolol Qualifiers: Hypertension type: unspecified Qualified Code(s): I10 - Essential (primary) hypertension (5) Atrial fibrillation: Assessment and Plan: continue Eliquis and metoprolol for rate management Qualifiers: Atrial fibrillation type: longstanding persistent Qualified Code(s): I48.11 - Longstanding persistent atrial fibrillation (6) Hypothyroidism (acquired): Assessment and Plan: tsh elevated will check T4 in the morning, continue levothyroxine current dosage now Plan patient is a full code Will continue Eliquis for DVT prophylaxis
[2023-06-12] MEDS: POTASSIUM CHLORIDE 10 MEQ ER TABLET 20 MEQ PO (10:38)
[2023-06-12] MEDS: APIXABAN 5 MG TABLET PO ×2 (10:39→21:36)
[2023-06-12] MEDS: LOSARTAN POTASSIUM 25 MG TABLET PO (10:39)
[2023-06-12] MEDS: QUETIAPINE FUMARATE 25 MG TABLET PO (10:40)
[2023-06-12] MEDS: CITALOPRAM HYDROBROMIDE 20 MG TABLET PO (10:41)
[2023-06-12] MEDS: MAGNESIUM OXIDE 400 MG TABLET PO (10:43)
--- NOTE | 2023-06-12 11:53 | CM.NOTE ---
Rounds made with Dr. Mayer. Still with shortness of breath. Dr. Mayer explained to Eleonora that she is changing her Lasix to Bumex to help decrease the lower extremity edema. Eleonora verbalizes understanding.
[2023-06-12] MEDS: BUMETANIDE 1 MG/4 ML VIAL 2 MG IVP ×2 (13:32→21:37)
--- NOTE | 2023-06-12 14:44 | SWNOTE1 ---
SW went in and spoke with pt, she is very hard of hearing. Pt did wake up with nurses assistance. Pt lives at [facility]. Nursing called earlier to [place] and pt gets around with walker with 1 person assist. Pt does plan on returning to [place]. SW did see OT notes and SNF recommended. Unsure of pt's orientation at this time, could just be she is hard of hearing. Physical therapy note able to work with her at this time. Patient voiced she wants a cookie, ENIO ordered per nursing permission. Pt voiced she likes it at [facility] and voiced she has been there since November of last year. Pt plans on returning at discharge. SW to follow as needed.
--- NOTE | 2023-06-12 15:39 | SWNOTE1 ---
SW did call pt's son and spoke with him over the phone. Pt has been at [facility] for about 14 months, plan is for her to return at discharge. SW reviewed IMM form with pt's son, he voiced understanding, no questions. Son gives permission for SW to sign, form saba, copy in chart and original placed in room.
--- NOTE | 2023-06-12 16:57 | P.CACN_ITS ---
History of Present Illness History of Present Illness Consult date: 06/12/23 Requesting physician: Dora Mayer Consult reason: congestive heart failure Chief complaint: SOB/CHF Narrative: This is an 82-year-old woman who resides in a assisted who is admitted to the [facility] with worsening symptoms of shortness of breath, fatigue and lower extremity edema. An echocardiogram was performed showing severely dilated right ventricle with severely reduced systolic function. She has severe tricuspid regurgitation and elevated right-sided pressures. She has history of atrial fibrillation and is maintained on anticoagulation with Eliquis. She has been managed with diuretic therapy initially with furosemide and the plan is to be changed to bumetanide 2 mg IV once daily. She currently denies chest pain. She says that her breathing is better but still labored. She has significant lower extremity swelling. She does not feel palpitations. Review of Systems ROS Status of ROS 10 or more systems reviewed and unremark able except as noted in history and below [facility] Medical History (Updated 06/12/23 @ 17:07 by DRE VARNER) Hypothyroidism (acquired) ?E03.9 - Hypothyroidism, unspecified (ICD-10) CVA (cerebral vascular accident) ?I63.9 - Cerebral infarction, unspecified (ICD-10) Hypertension ?I10 - Essential (primary) hypertension (ICD-10) Atrial fibrillation ?I48.91 - Unspecified atrial fibrillation (ICD-10) Surgical History H/O bilateral hip replacements ?Z96.643 - Presence of artificial hip joint, bilateral (ICD-10) History of bilateral knee replacement ?Z96.653 - Presence of artificial knee joint, bilateral (ICD-10) Family History Father Family history of myocardial infarction Family history of hypertension Mother Family history of myocardial infarction Family history of hypertension Social History Within the past year, how often did you have a drink containing alcohol: 2-3 times a week Smoking status: Never smoker Non-prescribed substance use: denies use Highest level of school completed/degree received: Master's degree Meds Home Medications and Allergies Home Medications Medication Instructions Recorded Confirmed Type apixaban 5 mg tablet (Eliquis) 5 mg PO Q12H 06/11/23 06/11/23 History citalopram 20 mg tablet 20 mg PO DAILY 06/11/23 06/11/23 History furosemide 40 mg tablet 40 mg PO Q12H 06/11/23 06/11/23 History levothyroxine 25 mcg tablet 25 mcg PO DAILY 06/11/23 06/11/23 History losartan 25 mg tablet 25 mg PO DAILY 06/11/23 06/11/23 History magnesium oxide 400 mg PO .qod 06/11/23 06/11/23 History melatonin 5 mg capsule 5 mg PO QPM 06/11/23 06/11/23 History metoprolol tartrate 25 mg tablet 25 mg PO TID 06/11/23 06/11/23 History potassium chloride 20 mEq 20 meq PO DAILY 06/11/23 06/11/23 History tablet,extended release(part/cryst) quetiapine 25 mg tablet 25 mg PO DAILY 06/11/23 06/11/23 History quetiapine 25 mg tablet (Seroquel) 50 mg PO QPM 06/11/23 06/11/23 History Allergies Allergy/AdvReac Type Severity Reaction Status Date / Time black pepper Allergy Unknown Verified 06/11/23 10:52 Exam Constitutional Vital Signs, click to edit/add: Last Vital Signs Temp 97.9 F 06/12/23 13:37 Pulse 95 H 06/12/23 15:00 Resp 18 06/12/23 13:37 BP 120/70 06/12/23 13:37 Pulse Ox 93 L 06/12/23 13:37 O2 Del Method Room Air 06/12/23 13:37 O2 Flow Rate 1.5 06/12/23 08:21 FiO2 1.5 06/12/23 04:56 Common normals: no apparent distress and oriented x3 Chest Common normals: inspection of chest normal Respiratory Common normals: normal respiratory effort Effort & inspection: able to speak in complete sentences Auscultation: clear to auscultation bilaterally Cardio Jugular venous distention: JVD and other Rhythm: abnormal rhythm irregularly irregular Heart sounds: murmur systolic Location: left sternal border Intensity: III/ Characteristics: soft Peripheral pulses: radial pulses present Extremity General: edema (Severe +4 bilateral lower extremity edema extending to the) Neuro Common normals: oriented x3 Sensorium/orientation: awake and alert Results Labs and Meds Lab results: Cardiac Enzymes 06/12/23 Range/Units 04:51 AST 11 L (15-37) U/L Lipids 06/12/23 Range/Units 04:51 Triglycerides 27 (<=150) mg/dL Cholesterol 95 (<=200) mg/dL HDL Cholesterol 34 L (40-60) mg/dL Cholesterol/HDL Ratio 2.8 CBC 06/12/23 Range/Units 04:51 WBC 4.2 (4.0-11.0) 10^3/uL RBC 3.81 L (4.20-5.40) 10^6/uL Hgb 8.5 L (12.0-16.0) g/dL Hct 28.4 L (36.0-48.0) % Plt Count 168 (150-450) 10^3/uL Neut # (Auto) 2.8 (1.4-6.5) 10^3/uL Lymph # (Auto) 1.0 L (1.2-3.8) 10^3/uL [place] # (Auto) 0.4 (0.3-0.8) 10^3/uL Eos # (Auto) 0.0 (0.0-0.7) 10^3/uL Baso # (Auto) 0.0 (0.0-0.1) 10^3/uL Comprehensive Metabolic Panel 06/12/23 Range/Units 04:51 Sodium 140 (136-145) mmol/L Potassium 3.5 (3.5-5.1) mmol/L Chloride 105 (98-107) mmol/L Carbon Dioxide 30.1 (21.0-32.0) mmol/L BUN 14.0 (7.0-18.0) mg/dL Creatinine 0.91 (0.55-1.02) mg/dL Glucose 130 H (74-106) mg/dL Calcium 8.3 L (8.5-10.1) mg/dL AST 11 L (15-37) U/L ALT 10 L (14-59) U/L Alkaline Phosphatase 149 H (46-116) U/L Total Protein 7.2 (6.4-8.2) g/dL Albumin 2.4 L (3.4-5.0) g/dL Intake and Output 06/12/23 06/12/23 06/12/23 07:59 15:59 23:59 Intake Total 820 / 820 Output Total 750 / 750 Balance 70 / 70 Intake: Oral 820 / 820 Output: Urine 750 / 750 Other: # Voids 2 # Unmeasured Voids 1 Weight 84.7 kg Imaging and Cardiology Echo: report reviewed (1. LV exhibits low normal systolic function. LVEF is 50%. 2. RV severely dilated with severely reduced systolic function. 3. Severe biatrial dilatation. 4. Mal-coaptation of the tricuspid leaflets with severe regurgitation. 5. Moderate MR. 6. Modeate pericardial effusion without tamponade by [facility]) and image reviewed ECG results: report reviewed (ECG 06/11/2023: Atrial fibrillation, right bundle branch block) Assessment and Plan Assessment and Plan (1) Acute congestive heart failure: Qualifiers: Heart failure type: unspecified Qualified Code(s): I50.9 - Heart failure, unspecified (2) Pleural effusion: (3) Hypoxia: (4) Hypertension: Qualifiers: Hypertension type: unspecified Qualified Code(s): I10 - Essential (primary) hypertension (5) Atrial fibrillation: Qualifiers: Atrial fibrillation type: persistent (not longstanding) Qualified Code(s): I48.19 - Other persistent atrial fibrillation (6) Hypothyroidism (acquired): (7) Right heart failure: (8) Tricuspid valve regurgitation, nonrheumatic: (9) Pericardial effusion without cardiac tamponade: Plan She has acute likely on chronic right heart failure and severe tricuspid regurgitation with anasarca and significant volume overload. The left ventricle appears to have preserved systolic function. She is in persistent atrial fibrillation with dilated atria but controlled ventricular response. The pericardial effusion found on echocardiogram is likely related to her volume overload and pulmonary hypertension and there is no evidence of cardiac tamponade clinically or by echocardiographic criteria. The mainstay of management of this complex condition is diuretic therapy. She is maintaining adequate renal function. I recommend increasing intravenous bumetanide to 2 mg twice daily and maintain diuretic therapy intravenously for several days until we see improvement in her lower extremity edema and anasarca. Following that she can be shifted to p.o. regimen of bumetanide 2 mg once daily. For now she needs to be continued on anticoagulation therapy for atrial fibrillation with Eliquis at current dosage which is appropriate for her age, renal function and body weight. Following discharge from the hospital she should be seen in the cardiology clinic and obtain a repeat echocardiogram to follow-up on pericardial effusion.
[2023-06-12] MEDS: QUETIAPINE FUMARATE 25 MG TABLET 50 MG PO (21:36)
[2023-06-13] VITALS (21 sets, daily range): BP systolic 117–139; BP diastolic 67–73; PULSE 80–110; RESP 18–20; TEMP 36.4–36.6; O2SAT 92–95
[2023-06-13] MEDS: METOPROLOL TARTRATE 25 MG TABLET PO ×3 (05:36→21:32)
[2023-06-13] MEDS: LEVOTHYROXINE SODIUM 25 MCG TABLET PO (05:36)
[2023-06-13 06:01] LABS: Basophils Percent Auto 0.7 % (0.2-2.0); Eosinophils Absolute Auto 0.1 10^3/uL (0.0-0.7); Eosinophils Percent Auto 1.3 % (0.9-7.0); Hematocrit 26.4 % (36.0-48.0); Hemoglobin 8.1 g/dL (12.0-16.0); Immature Granulocytes Abs Auto 0.01 10^3/uL (0.00-0.03); Immature Granulocytes Pct Auto 0.2 % (0.0-0.5); Lymphocytes Absolute Auto 1.7 10^3/uL (1.2-3.8); Lymphocytes Percent Auto 28.1 % (20.5-60.0); Mean Corpuscular HGB Conc 30.7 g/dL (29.9-35.2); Mean Corpuscular Hemoglobin 22.8 pg (26.7-34.0); Mean Corpuscular Volume 74.4 fL (81.0-99.0); Mean Platelet Volume 10.5 fL (9.5-13.5); Monocytes Absolute Auto 0.8 10^3/uL (0.3-0.8); Monocytes Percent Auto 13.2 % (1.7-12.0); Neutrophils Absolute Auto 3.4 10^3/uL (1.4-6.5); Neutrophils Percent Auto 56.5 % (43.0-75.0); Platelet Count 173 10^3/uL (150-450); Red Blood Count 3.55 10^6/uL (4.20-5.40); Red Cell Distribution Width 19.6 % (11.0-15.0); White Blood Count 6.1 10^3/uL (4.0-11.0)
[2023-06-13 06:50] LABS: Alanine Aminotransferase 8 U/L (14-59); Alkaline Phosphatase 124 U/L (46-116); Anion Gap 8.2; Aspartate Amino Transferase 13 U/L (15-37); BUN Creatinine Ratio 20.5; Bilirubin Total 0.9 mg/dL (0.2-1.0); Calcium 8.2 mg/dL (8.5-10.1); Carbon Dioxide 31.2 mmol/L (21.0-32.0); Chloride 104 mmol/L (98-107); Estimated GFR (African America >60 (>=60); Estimated GFR (Non-African Ame >60 (>=60); Glucose 83 mg/dL (74-106); Potassium 3.4 mmol/L (3.5-5.1); Sodium 140 mmol/L (136-145)
[2023-06-13 06:51] LABS: Albumin Globulin Ratio 0.6; Albumin Level 2.5 g/dL (3.4-5.0); Globulin 4.4 g/dL; Total Protein 6.9 g/dL (6.4-8.2)
[2023-06-13] MEDS: QUETIAPINE FUMARATE 25 MG TABLET PO (08:28)
[2023-06-13] MEDS: ACETAMINOPHEN 325 MG TABLET 650 MG PO (08:28)
[2023-06-13] MEDS: LOSARTAN POTASSIUM 25 MG TABLET PO (08:29)
[2023-06-13] MEDS: POTASSIUM CHLORIDE 10 MEQ ER TABLET 20 MEQ PO ×2 (08:29→21:31)
[2023-06-13] MEDS: APIXABAN 5 MG TABLET PO ×2 (08:30→21:31)
[2023-06-13] MEDS: CITALOPRAM HYDROBROMIDE 20 MG TABLET PO (08:31)
--- NOTE | 2023-06-13 10:07 | PM.PN ---
Progress Note: Subjective Subjective Interval history: Patient is hard of hearing. No new complaints today. Still with dyspnea but has not really even been up yet. Exam Constitutional Vital Signs, click to edit/add: Last Vital Signs Temp 97.7 F 06/13/23 05:24 Pulse 80 06/13/23 10:00 Resp 18 06/13/23 05:24 BP 139/73 06/13/23 08:29 Pulse Ox 92 L 06/13/23 05:24 O2 Del Method Nasal Cannula 06/13/23 05:24 O2 Flow Rate 1 06/13/23 05:24 FiO2 1.5 06/12/23 04:56 Documenting provider has reviewed patient's vital signs: yes Common normals: no apparent distress Chest Common normals: inspection of chest normal Respiratory Common normals: normal respiratory effort and no retractions Cardio Common normals: regular rate and regular rhythm Extremity Common normals: abnormal to inspection (3+ edema) Progress Note: Objective Labs Labs: Short CBC 06/13/23 Range/Units 04:44 WBC 6.1 (4.0-11.0) 10^3/uL Hgb 8.1 L (12.0-16.0) g/dL Hct 26.4 L (36.0-48.0) % Plt Count 173 (150-450) 10^3/uL BMP 06/13/23 04:44 Sodium 140 Potassium 3.4 L Chloride 104 Carbon Dioxide 31.2 BUN 18.0 Creatinine 0.88 Glucose 83 Calcium 8.2 L Liver Function 06/13/23 Range/Units 04:44 Total Bilirubin 0.9 (0.2-1.0) mg/dL AST 13 L (15-37) U/L ALT 8 L (14-59) U/L Alkaline Phosphatase 124 H (46-116) U/L Albumin 2.5 L (3.4-5.0) g/dL Progress Note: A&P Assessment and Plan (1) Acute congestive heart failure: Assessment and Plan: Only 1 L out, will try patient on Bumex drip. Qualifiers: Heart failure type: unspecified Qualified Code(s): I50.9 - Heart failure, unspecified (2) Pleural effusion: Assessment and Plan: As above (3) Hypoxia: Assessment and Plan: secondary to #1 and #2 (4) Hypertension: Assessment and Plan: continue losartan, metoprolol Qualifiers: Hypertension type: unspecified Qualified Code(s): I10 - Essential (primary) hypertension (5) Atrial fibrillation: Assessment and Plan: continue Eliquis and metoprolol for rate management Qualifiers: Atrial fibrillation type: persistent (not longstanding) Qualified Code(s): I48.19 - Other persistent atrial fibrillation (6) Hypothyroidism (acquired): Assessment and Plan: Medications at the (7) Right heart failure: Assessment and Plan: Maintain strict blood pressure control (8) Tricuspid valve regurgitation, nonrheumatic: (9) Pericardial effusion without cardiac tamponade: Assessment and Plan: Further evaluation as an outpatient once this was episode of acute combined congestive heart failure is resolved Plan patient is a full code Will continue Eliquis for DVT prophylaxis
--- NOTE | 2023-06-13 10:38 | PT.DAILY ---
Addendum entered and electronically signed by Kita Oneal PTA 06/13/23 10:41: In time at 1015 am. Out time 1030 am. In correct time originally documented. Original Note: Physical Therapy Daily Note PT Daily Note/Assess Start: 06/13/23 10:33 Freq: Status: Active Protocol: Document 06/13/23 10:33 [id number] (Rec: 06/13/23 10:38 [id number]) Physical Therapy Daily Note/Assessment Time In/Time Out Time In 09:15 Time Out 09:30 Pain In Pain Level 0 Pain Out Pain Level 0 Subjective Subjective Patient states she is not sure how much she can do but is willing to try exercises with her legs. Therapeutic Exercise Time Therapeutic Exercise Minutes (minutes) 15 Therapeutic Exercise Units 1 Therapeutic Exercise Treatment Therapeutic Exercise Treatment Patient performed ther ex to CLEMENTINE LE for AAROM for strengthening at 5 to 10 reps each. Patient is slow to task in functional movement through available ROM. Exhibits facial grimacing and moaning with CLEMENTINE SLR and hip ABD. Total Physical Therapy Time Total Therapy Minutes 15 Total Physical Therapy Units 1 Summary Daily Note Summary Patient tolerant of palpation for AAROM to CLEMENTINE LE in available ROM. Slow to task in functional movement. Patient requests to not do anymore than move her legs this date. Patient would benefit from fdc secondary to functional deficits.
[2023-06-13] MEDS: BUMETANIDE 10 MG in 0.9 % SODIUM CHLORIDE 160 ML 20 MG IV (11:10)
[2023-06-13] MEDS: IPRATROPIUM/ALBUTEROL SULFATE 3 ML AMPUL.NEB IH ×3 (11:42→23:45)
[2023-06-13 11:56] LABS: Bilirubin Urine NEGATIVE (NEGATIVE); Blood Urine SMALL (NEGATIVE); Clarity Urine CLEAR (CLEAR); Color Urine YELLOW (YELLOW); Glucose Urine UA NEGATIVE (NEGATIVE); Ketones Urine NEGATIVE (NEGATIVE); Leukocyte Esterase Urine TRACE (NEGATIVE); Nitrite Urine NEGATIVE (NEGATIVE); Protein Urine NEGATIVE (NEG/TRACE); Specific Gravity Urine 1.015 (1.005-1.025)
[2023-06-13 12:07] LABS: Bacteria Urine TRACE #/HPF (NONE SEEN); Crystals Seen? None Seen #/HPF (None Seen); Mucus Urine NONE SEEN (NONE SEEN); Squamous Epithelial Cell Urine MODERATE #/LPF (NONE/RARE)
[2023-06-13 12:08] LABS: Cast Seen? NONE SEEN #/LPF (NONE SEEN)
[2023-06-13] MEDS: LEVOFLOXACIN IN DEXTROSE 5 % 750 MG/150 ML IV.SOLN 100 MG IV (12:33)
[2023-06-13] MEDS: QUETIAPINE FUMARATE 25 MG TABLET 50 MG PO (21:31)
[2023-06-14] VITALS (21 sets, daily range): BP systolic 106–123; BP diastolic 64–76; PULSE 78–104; RESP 14–20; TEMP 36.5–37; O2SAT 90–93
[2023-06-14] MEDS: IPRATROPIUM/ALBUTEROL SULFATE 3 ML AMPUL.NEB IH ×4 (05:01→23:41)
[2023-06-14 05:42] LABS: Basophils Absolute Auto 0.1 10^3/uL (0.0-0.1); Basophils Percent Auto 1.6 % (0.2-2.0); Eosinophils Absolute Auto 0.1 10^3/uL (0.0-0.7); Eosinophils Percent Auto 2.5 % (0.9-7.0); Hematocrit 27.4 % (36.0-48.0); Hemoglobin 8.3 g/dL (12.0-16.0); Immature Granulocytes Abs Auto 0.01 10^3/uL (0.00-0.03); Immature Granulocytes Pct Auto 0.2 % (0.0-0.5); Lymphocytes Absolute Auto 1.9 10^3/uL (1.2-3.8); Lymphocytes Percent Auto 33.5 % (20.5-60.0); Mean Corpuscular HGB Conc 30.3 g/dL (29.9-35.2); Mean Corpuscular Hemoglobin 22.3 pg (26.7-34.0); Mean Corpuscular Volume 73.5 fL (81.0-99.0); Mean Platelet Volume 9.9 fL (9.5-13.5); Monocytes Absolute Auto 0.8 10^3/uL (0.3-0.8); Monocytes Percent Auto 13.6 % (1.7-12.0); Neutrophils Absolute Auto 2.7 10^3/uL (1.4-6.5); Neutrophils Percent Auto 48.6 % (43.0-75.0); Platelet Count 169 10^3/uL (150-450); Red Blood Count 3.73 10^6/uL (4.20-5.40); Red Cell Distribution Width 19.4 % (11.0-15.0); White Blood Count 5.6 10^3/uL (4.0-11.0)
[2023-06-14] MEDS: LEVOTHYROXINE SODIUM 25 MCG TABLET PO (05:51)
[2023-06-14] MEDS: METOPROLOL TARTRATE 25 MG TABLET PO ×3 (05:51→21:06)
[2023-06-14 06:16] LABS: Alanine Aminotransferase 11 U/L (14-59); Albumin Globulin Ratio 0.5; Albumin Level 2.4 g/dL (3.4-5.0); Alkaline Phosphatase 121 U/L (46-116); Anion Gap 9.1; Aspartate Amino Transferase 14 U/L (15-37); BUN Creatinine Ratio 21.5; Calcium 7.9 mg/dL (8.5-10.1); Chloride 101 mmol/L (98-107); Estimated GFR (African America >60 (>=60); Estimated GFR (Non-African Ame 57 (>=60); Globulin 4.5 g/dL; Glucose 81 mg/dL (74-106); Potassium 3.1 mmol/L (3.5-5.1); Sodium 140 mmol/L (136-145); Total Protein 6.9 g/dL (6.4-8.2)
[2023-06-14 07:41] LABS: Bilirubin Urine NEGATIVE (NEGATIVE); Blood Urine LARGE (NEGATIVE); Clarity Urine CLEAR (CLEAR); Color Urine LT. YELLOW (YELLOW); Glucose Urine UA NEGATIVE (NEGATIVE); Ketones Urine NEGATIVE (NEGATIVE); Leukocyte Esterase Urine TRACE (NEGATIVE); Nitrite Urine NEGATIVE (NEGATIVE); Protein Urine NEGATIVE (NEG/TRACE); Specific Gravity Urine 1.015 (1.005-1.025); pH Urine 8.5 (5.0-9.0)
[2023-06-14 07:52] LABS: Bacteria Urine NONE SEEN #/HPF (NONE SEEN); Cast Seen? NONE SEEN #/LPF (NONE SEEN); Crystals Seen? None Seen #/HPF (None Seen); Mucus Urine NONE SEEN (NONE SEEN); Squamous Epithelial Cell Urine RARE #/LPF (NONE/RARE); Urine Culture Indicated ALREADY ORDERED; WBC Urine 0-2 #/HPF (NONE SEEN)
[2023-06-14] MEDS: QUETIAPINE FUMARATE 25 MG TABLET PO (09:27)
[2023-06-14] MEDS: LOSARTAN POTASSIUM 25 MG TABLET PO (09:27)
[2023-06-14] MEDS: APIXABAN 5 MG TABLET PO ×2 (09:27→21:06)
[2023-06-14] MEDS: CITALOPRAM HYDROBROMIDE 20 MG TABLET PO (09:30)
[2023-06-14] MEDS: POTASSIUM CHLORIDE 10 MEQ ER TABLET 20 MEQ PO ×2 (09:30→21:05)
--- NOTE | 2023-06-14 09:33 | P.PN_ITS ---
Progress Note: Subjective Subjective Interval history: Patient is hard of hearing. No acute complaints, she feels her breathing is improved from previous day. Exam Constitutional Vital Signs, click to edit/add: Last Vital Signs Temp 97.7 F 06/14/23 05:51 Pulse 81 06/14/23 07:57 Resp 16 06/14/23 08:00 BP 106/64 06/14/23 05:51 Pulse Ox 90 L 06/14/23 05:51 O2 Del Method Room Air 06/14/23 05:51 O2 Flow Rate 1 06/13/23 11:49 FiO2 1.5 06/12/23 04:56 Documenting provider has reviewed patient's vital signs: yes Common normals: no apparent distress Chest Common normals: inspection of chest normal Respiratory Common normals: normal respiratory effort and no retractions Cardio Common normals: regular rate and regular rhythm Extremity Common normals: abnormal to inspection (2+ edema) Progress Note: Objective Labs Labs: Short CBC 06/14/23 Range/Units 05:05 WBC 5.6 (4.0-11.0) 10^3/uL Hgb 8.3 L (12.0-16.0) g/dL Hct 27.4 L (36.0-48.0) % Plt Count 169 (150-450) 10^3/uL BMP 06/14/23 05:05 Sodium 140 Potassium 3.1 L Chloride 101 Carbon Dioxide 33.0 H BUN 20.0 H Creatinine 0.93 Glucose 81 Calcium 7.9 L Liver Function 06/14/23 Range/Units 05:05 Total Bilirubin 1.0 (0.2-1.0) mg/dL AST 14 L (15-37) U/L ALT 11 L (14-59) U/L Alkaline Phosphatase 121 H (46-116) U/L Albumin 2.4 L (3.4-5.0) g/dL Urine 06/13/23 06/14/23 Range/Units 11:30 07:00 Urine Color Yellow Lt. yellow (YELLOW) Urine Clarity Clear Clear (CLEAR) Urine pH 6.0 8.5 (5.0-9.0) Ur Specific [place] 1.015 1.015 (1.005-1.025) Urine Protein Negative Negative (NEG/TRACE) mg/dL Urine Glucose (UA) Negative Negative (NEGATIVE) mg/dL Progress Note: A&P Assessment and Plan (1) Acute congestive heart failure: Assessment and Plan: Only 1 L throughout the previous day. So yesterday changed to Bumex drip with 7 L out. Will repeat again today but at a slower rate. Qualifiers: Heart failure type: unspecified Qualified Code(s): I50.9 - Heart failure, unspecified (2) Pleural effusion: Assessment and Plan: As above (3) Hypoxia: Assessment and Plan: secondary to #1 and #2-improved (4) Hypertension: Assessment and Plan: continue losartan, metoprolol Qualifiers: Hypertension type: unspecified Qualified Code(s): I10 - Essential (primary) hypertension (5) Atrial fibrillation: Assessment and Plan: continue Eliquis and metoprolol for rate management Qualifiers: Atrial fibrillation type: persistent (not longstanding) Qualified Code(s): I48.19 - Other persistent atrial fibrillation (6) Hypothyroidism (acquired): Assessment and Plan: Continue medications (7) Right heart failure: Assessment and Plan: Maintain strict blood pressure control (8) Tricuspid valve regurgitation, nonrheumatic: (9) Pericardial effusion without cardiac tamponade: Assessment and Plan: Further evaluation as an outpatient once this was episode of acute combined congestive heart failure is resolved Plan patient is a full code Will continue Eliquis for DVT prophylaxis Maintain inpatient status 1 additional day. With further diuresis tomorrow she will likely be transferred back to her facility tomorrow. Urinary Catheter Management Urinary Catheter Management Urethral: Cath placed during this visit: yes Urethral indwelling: Yes Reason for continuing: measure accurate output Insertion date: 06/13/23 Insertion time: 11:22
[2023-06-14] MEDS: BUMETANIDE 1 MG/4 ML VIAL 2 MG IVP (10:09)
[2023-06-14] MEDS: POTASSIUM CHLORIDE 40 MEQ in 0.9 % SODIUM CHLORIDE 250 ML 67.5 MEQ IV (11:33)
[2023-06-14] MEDS: BUMETANIDE 10 MG in 0.9 % SODIUM CHLORIDE 160 ML IV (11:34)
[2023-06-14] MEDS: MAGNESIUM OXIDE 400 MG TABLET PO (11:35)
[2023-06-14] MEDS: QUETIAPINE FUMARATE 25 MG TABLET 50 MG PO (21:06)
[2023-06-15] VITALS (14 sets, daily range): BP systolic 103–110; BP diastolic 55–72; PULSE 86–104; RESP 18–20; TEMP 36.6–36.8; O2SAT 90–94
[2023-06-15] MEDS: IPRATROPIUM/ALBUTEROL SULFATE 3 ML AMPUL.NEB IH ×2 (04:37→11:37)
[2023-06-15] MEDS: LEVOTHYROXINE SODIUM 25 MCG TABLET PO (05:30)
[2023-06-15] MEDS: METOPROLOL TARTRATE 25 MG TABLET PO ×2 (05:30→13:08)
[2023-06-15 05:32] LABS: Basophils Absolute Auto 0.1 10^3/uL (0.0-0.1); Basophils Percent Auto 1.2 % (0.2-2.0); Eosinophils Absolute Auto 0.1 10^3/uL (0.0-0.7); Eosinophils Percent Auto 2.1 % (0.9-7.0); Hematocrit 28.2 % (36.0-48.0); Hemoglobin 8.7 g/dL (12.0-16.0); Immature Granulocytes Abs Auto 0.02 10^3/uL (0.00-0.03); Immature Granulocytes Pct Auto 0.4 % (0.0-0.5); Lymphocytes Absolute Auto 1.8 10^3/uL (1.2-3.8); Lymphocytes Percent Auto 34.7 % (20.5-60.0); Mean Corpuscular HGB Conc 30.9 g/dL (29.9-35.2); Mean Corpuscular Hemoglobin 22.4 pg (26.7-34.0); Mean Corpuscular Volume 72.7 fL (81.0-99.0); Mean Platelet Volume 9.4 fL (9.5-13.5); Monocytes Absolute Auto 0.7 10^3/uL (0.3-0.8); Monocytes Percent Auto 14.3 % (1.7-12.0); Neutrophils Absolute Auto 2.5 10^3/uL (1.4-6.5); Neutrophils Percent Auto 47.3 % (43.0-75.0); Platelet Count 176 10^3/uL (150-450); Red Blood Count 3.88 10^6/uL (4.20-5.40); Red Cell Distribution Width 19.4 % (11.0-15.0); White Blood Count 5.2 10^3/uL (4.0-11.0)
[2023-06-15 06:23] LABS: Alanine Aminotransferase 12 U/L (14-59); Albumin Globulin Ratio 0.5; Albumin Level 2.4 g/dL (3.4-5.0); Alkaline Phosphatase 120 U/L (46-116); Anion Gap 8.3; Aspartate Amino Transferase 13 U/L (15-37); BUN Creatinine Ratio 22.1; Bilirubin Total 1.1 mg/dL (0.2-1.0); Calcium 8.1 mg/dL (8.5-10.1); Carbon Dioxide 33.8 mmol/L (21.0-32.0); Chloride 101 mmol/L (98-107); Estimated GFR (African America >60 (>=60); Estimated GFR (Non-African Ame 50 (>=60); Globulin 4.4 g/dL; Glucose 93 mg/dL (74-106); Potassium 3.1 mmol/L (3.5-5.1); Sodium 140 mmol/L (136-145); Total Protein 6.8 g/dL (6.4-8.2)
--- NOTE | 2023-06-15 08:56 | XR_ITS ---
The [address] [address] Patient Name: SUJATA BERRIOS MRN: [id number] date: 1940 Sex: F Assigned Patient Location: [place] Current Patient Location: [place] Accession/Order Number: [id number] Exam Date: 06/15/2023 09:50 Report Date: 06/15/2023 10:21 At the request of: CK SHELTON Procedure: XR chest 2V EXAM: Chest, PA and lateral: HISTORY: Dyspnea on exertion. Comparison studies: 06/12/2023 TECHNIQUE: Frontal and lateral views of the chest were obtained. FINDINGS: The lungs are well-inflated and show small bilateral pleural effusions, probably stable. There is no definite focal airspace consolidation. The heart and mediastinum are stable in appearance. No obvious mass or adenopathy is seen. Osseous structures are stable in appearance. XR/XR chest 2V IMPRESSION: Cardiomegaly with bilateral pleural effusions most likely indicates changes of congestive heart failure. If clinical concern remains, however, consider further evaluation with CT of the chest. Electronically authenticated by: TWYLA PALMER Date: 06/15/2023 10:21
--- NOTE | 2023-06-15 09:54 | CM.NOTE ---
Rounds made with Dr. Brown. Potential plan for discharge today.
[2023-06-15] MEDS: POTASSIUM CHLORIDE 10 MEQ ER TABLET 20 MEQ PO (10:06)
[2023-06-15] MEDS: FERROUS SULFATE 325 MG TABLET PO (10:06)
[2023-06-15] MEDS: LOSARTAN POTASSIUM 25 MG TABLET PO (10:07)
[2023-06-15] MEDS: APIXABAN 5 MG TABLET PO (10:07)
[2023-06-15] MEDS: CITALOPRAM HYDROBROMIDE 20 MG TABLET PO (10:07)
[2023-06-15] MEDS: QUETIAPINE FUMARATE 25 MG TABLET PO (10:08)
[2023-06-15] MEDS: BUMETANIDE 1 MG/4 ML VIAL 2 MG IVP (10:08)
--- NOTE | 2023-06-15 12:15 | SWNOTE1 ---
SW checked PT/OT notes and skilled rehab is recommended. SW called and spoke with Dana at [facility]. SW explained to her that SNF was being recommended and SW needed to know baseline. At the facility staffing encourages her to walk down to the dinner area, but she refuses and sits in her chair. She is a one person assist to get out of chair and then she uses her walker. Dana states she also yells/screams at anyone that touches her. SW read over OT note from today with Dana and she confirmed this is near her baseline. Dana is going to call and talk to the sons to see what they would like to do. Dana voiced since she is familiar with the people at [facility] and she is near her baseline it would be better for her to return. Dana also stated it is up to pt as well. SW to talk with pt while Dana speaks with pt's son. Dana also voiced they can get her therapy there.
[2023-06-15] MEDS: LEVOFLOXACIN IN DEXTROSE 5 % 750 MG/150 ML IV.SOLN 100 MG IV (12:38)
[2023-06-15] MEDS: 0.9 % SODIUM CHLORIDE 250 ML 30 ML IV (12:39)
--- NOTE | 2023-06-15 15:32 | SWNOTE1 ---
ENIO spoke with son, Cristino, who spoke with Dana at [facility]. ENIO updated Cristino in regards to SNF being recommended. Cristino has decided he would like his mother to return to [facility] and have HH therapy come in. At this time pt's son refusing SNF. Pt will return to [facility] [place] and resume [facility]. Pt had [facility] coming in already, just not therapy. Therapy will be added. ENIO called and spoke with Dana and let her know pt's son decision. [facility] is ready for pt to return. ENIO sent over finalized dc med rec. ENIO put together packet as well. ENIO sent physician notes, therapy notes, CRF, and dc med rec to [facility].
--- NOTE | 2023-06-15 15:37 | SWNOTE1 ---
SW updated nursing.
--- NOTE | 2023-06-15 20:15 | P.DS_ITS ---
DS: Providers Provider Date of admission: 06/11/23 14:26 Primary care physician: Non-Staff Physician, Consults: 06/11/23 14:24 Consult to Cardiology Routine Reason for consultation: acute on chronic CHF, hypoxia, large pleural effusions Has provider been notified: No Occupational Therapy Eval and Treat Routine Reason for consultation: weakness Has provider been notified: No Physical Therapy Eval and Treat Routine Reason for consultation: weakness Has provider been notified: No DS: Diagnosis Discharge Diagnosis (1) Acute congestive heart failure: Qualifiers: Heart failure type: unspecified Qualified Code(s): I50.9 - Heart failure, unspecified (2) Pleural effusion: (3) Hypoxia: (4) Hypertension: Qualifiers: Hypertension type: unspecified Qualified Code(s): I10 - Essential (primary) hypertension (5) Atrial fibrillation: Qualifiers: Atrial fibrillation type: persistent (not longstanding) Qualified Code(s): I48.19 - Other persistent atrial fibrillation (6) Hypothyroidism (acquired): (7) Right heart failure: (8) Tricuspid valve regurgitation, nonrheumatic: (9) Pericardial effusion without cardiac tamponade: DS: Summary Hospital Course Hospital Course: Patient was admitted with shortness of breath and found to have acute combined congestive heart failure. Initially placed on Bumex IV dosing twice daily. She had about 1-1/2 L out with that. Last 2 days she received a Bumex drip on 1 dose each day. First day was 10 hours secondary was 20 hours at a lower dose. She responded with 14 L diuresis in the last 48 hours. She feels overall improved. Her swelling in her legs is persistent but still much improved from admission. Her breathing overall feels back to her baseline. She is just generally weak from her overall illness. At this point she is stable to be transferred back to her assisted living. Home health initiation would be much appreciated and beneficial. Discharge plan is back to assisted living, medications see list, see PCP within the next week. Time Spent with Patient Time attestation: Total time spent providing and/or coordinating discharge services: Exam Constitutional Vital Signs, click to edit/add: Last Vital Signs Temp 98 F 06/15/23 13:15 Pulse 104 H 06/15/23 13:52 Resp 20 06/15/23 13:15 BP 103/72 06/15/23 13:15 Pulse Ox 93 L 06/15/23 13:15 O2 Del Method Room Air 06/15/23 13:15 O2 Flow Rate 1 06/13/23 11:49 FiO2 1.5 06/12/23 04:56 Documenting provider has reviewed patient's vital signs: yes Common normals: no apparent distress Chest Common normals: inspection of chest normal Respiratory Common normals: normal respiratory effort and no retractions Cardio Common normals: regular rate and regular rhythm Extremity Common normals: abnormal to inspection (2+ edema) DS: Data Data Completed and Pending Labs on day of discharge: Labs from last 24 hours 06/15/23 04:50 WBC 5.2 RBC 3.88 L Hgb 8.7 L Hct 28.2 L MCV 72.7 L MCH 22.4 L MCHC 30.9 RDW 19.4 H Plt Count 176 MPV 9.4 L Neut % (Auto) 47.3 Lymph % (Auto) 34.7 [place] % (Auto) 14.3 H Eos % (Auto) 2.1 Baso % (Auto) 1.2 Neut # (Auto) 2.5 Lymph # (Auto) 1.8 [place] # (Auto) 0.7 Eos # (Auto) 0.1 Baso # (Auto) 0.1 Abs Immat Gran (auto) 0.02 Imm/Tot Granulo (auto) 0.4 Sodium 140 Potassium 3.1 L Chloride 101 Carbon Dioxide 33.8 H Anion Gap 8.3 BUN 23.0 H Creatinine 1.04 H Est GFR ( Amer) >60 Est GFR (Non-Af Amer) 50 L BUN/Creatinine Ratio 22.1 Glucose 93 Calcium 8.1 L Total Bilirubin 1.1 H AST 13 L ALT 12 L Alkaline Phosphatase 120 H NT-Pro-B Natriuret Pep 2937.0 H* Total Protein 6.8 Albumin 2.4 L Globulin 4.4 Albumin/Globulin Ratio 0.5 Discharge Plan Discharge Disposition: Home Health Service Condition: Good Discharge Medications: New levofloxacin 500 mg tablet 500 mg PO DAILY 7 Days Qty: 7 0RF Continued quetiapine 25 mg tablet 25 mg PO DAILY furosemide 40 mg tablet 40 mg PO Q12H levothyroxine 25 mcg tablet 25 mcg PO DAILY citalopram 20 mg tablet 20 mg PO DAILY potassium chloride 20 mEq tablet,ER particles/crystals 20 meq PO DAILY losartan 25 mg tablet 25 mg PO DAILY metoprolol tartrate 25 mg tablet 25 mg PO TID Eliquis 5 mg tablet 5 mg PO Q12H melatonin 5 mg capsule 5 mg PO QPM quetiapine [Seroquel] 25 mg tablet 50 mg PO QPM magnesium oxide 400 mg magnesium tablet 400 mg PO .qod Activity: increase activity as tolerated Diet: advance to your usual diet Patient Instructions: Levofloxacin (By mouth), Heart Failure (DC) Vending Route Servicer/Medical Numerical Control Operator Instructions: Discharge back to [facility] (home) with [facility]. Forms: Portal Instructions Follow Up Appointments: @ 10:15am with Dr. Light [phone] Discharge Date/Time: 06/15/23 15:55
== END 2023-06-15 15:55 | disposition home health service (06) | DRG 291 ==
LOC: ER 13:29 → MS 14:31
PROVIDERS: Family Medicine; Admitting Provider Family Medicine; Emergency Provider Emergency Medicine; Visit Provider Family Medicine
DX: I11.0 Hypertensive heart disease with heart failure (principal); I50.41 Acute combined systolic (congestive) and diastolic (congestive) heart failure; I31.39 Other pericardial effusion (noninflammatory); I48.19 Other persistent atrial fibrillation; I50.813 Acute on chronic right heart failure; I36.1 Nonrheumatic tricuspid (valve) insufficiency; R09.02 Hypoxemia; E03.9 Hypothyroidism, unspecified; Z79.01 Long term (current) use of anticoagulants; Z79.890 Hormone replacement therapy; Z79.899 Other long term (current) drug therapy; Z96.643 Presence of artificial hip joint, bilateral; Z96.653 Presence of artificial knee joint, bilateral; Z86.73 Personal history of transient ischemic attack (TIA), and cerebral infarction without residual deficits; Z82.49 Family history of ischemic heart disease and other diseases of the circulatory system
CPT/HCPCS: 0202U; 36415; 51702; 71045; 71046; 71260; 80048; 80053; 80061; 81001; 83036; 83735; 83880; 84436; 84443; 84484; 85025; 85027; 85610; 85730; 87086; 93005; 93306; 94640; 94761; 96365; 96366; 96367; 96368; 96375; 96376; 97110; 97163; 97165; 97530; 97535; 99285; G0328; J1940; J3480; Q9967

== ENCOUNTER 2023-07-08 13:30 | Outpatient (REF) | payer MEDICARE, SELFPAY ==
[2023-07-09 12:10] LABS: Bilirubin Urine NEGATIVE (NEGATIVE); Blood Urine TRACE-I (NEGATIVE); Clarity Urine CLEAR (CLEAR); Color Urine LT. YELLOW (YELLOW); Glucose Urine UA NEGATIVE (NEGATIVE); Ketones Urine NEGATIVE (NEGATIVE); Leukocyte Esterase Urine NEGATIVE (NEGATIVE); Nitrite Urine NEGATIVE (NEGATIVE); Protein Urine NEGATIVE (NEG/TRACE); pH Urine 6.5 (5.0-9.0)
== END 2023-07-08 13:31 | disposition home or self-care (01) ==
LOC: LAB 13:30
PROVIDERS: Visit Provider Family Medicine
DX: R35.0 Frequency of micturition (principal); R41.0 Disorientation, unspecified
CPT/HCPCS: 81003; 87086

== ENCOUNTER 2023-08-31 09:28 | Outpatient (OUT) | payer MEDICARE, SELFPAY ==
--- NOTE | 2023-08-31 09:58 | XR_ITS ---
The [address] [address] Patient Name: SUJATA BERRIOS MRN: [id number] date: 1940 Sex: F Assigned Patient Location: [facility] Current Patient Location: [facility] Accession/Order Number: [id number] Exam Date: 08/31/2023 10:15 Report Date: 08/31/2023 10:40 At the request of: MARGARITO RYAN Procedure: XR chest 2V EXAM: XR chest 2V HISTORY: atrial fibrillation I48.19 COMPARISON: None. TECHNIQUE: PA and lateral views of the chest. FINDINGS: The cardiomediastinal silhouette is enlarged. No focal consolidation is identified. There is no pneumothorax. No pleural effusion is noted. The osseous structures are intact. XR/XR chest 2V IMPRESSION: Cardiomegaly without failure. Electronically authenticated by: SOFYA WILSON Date: 08/31/2023 10:40
[2023-08-31 10:41] LABS: Anion Gap 9.7; BUN Creatinine Ratio 16.5; Calcium 9.5 mg/dL (8.5-10.1); Carbon Dioxide 30.2 mmol/L (21.0-32.0); Chloride 101 mmol/L (98-107); Estimated GFR (African America >60 (>=60); Estimated GFR (Non-African Ame 55 (>=60); Glucose 95 mg/dL (74-106); Potassium 3.9 mmol/L (3.5-5.1); Sodium 137 mmol/L (136-145)
== END 2023-08-31 09:29 | disposition home or self-care (01) ==
LOC: RAD 09:28
PROVIDERS: Visit Provider Internal Medicine Cardiovascular Disease
DX: I48.19 Other persistent atrial fibrillation (principal); I77.9 Disorder of arteries and arterioles, unspecified; I10 Essential (primary) hypertension
CPT/HCPCS: 36415; 71046; 80048

== ENCOUNTER 2023-09-04 19:40 | Emergency (ER) | payer MEDICARE, SELFPAY ==
[2023-09-04 19:42] VITALS: PULSE 80; TEMP 36.4; O2SAT 93; BMI 31.2
--- NOTE | 2023-09-04 19:48 | XR_ITS ---
The [address] [address] Patient Name: SUJATA BERRIOS MRN: [id number] date: 1940 Sex: F Assigned Patient Location: ER Current Patient Location: ER Accession/Order Number: [id number] Exam Date: 09/04/2023 20:50 Report Date: 09/04/2023 21:46 At the request of: JAIDEN ORELLANA Procedure: XR knee RT 3V EXAM: XR knee RT 3V HISTORY: pain s/p fall COMPARISON: None. TECHNIQUE: 3 views right knee FINDINGS: Diffuse osseous demineralization. Status post right knee total arthroplasty without hardware complication. No joint effusion. No acute fracture or aggressive osseous abnormality. Osseous densities projecting anterior to the knee are nonspecific. XR/XR knee RT 3V IMPRESSION: Status post right knee total arthroplasty without hardware complication or acute osseous abnormality. Electronically authenticated by: DAXA COLMENARES Date: 09/04/2023 21:46
--- NOTE | 2023-09-04 19:48 | CT_ITS ---
The [address] [address] Patient Name: SUJATA BERRIOS MRN: [id number] date: 1940 Sex: F Assigned Patient Location: ER Current Patient Location: ER Accession/Order Number: [id number] Exam Date: 09/04/2023 20:34 Report Date: 09/04/2023 21:09 At the request of: JAIDEN ORELLANA Procedure: CT cervical spine wo con EXAM: CT head/brain wo con, CT cervical spine wo con HISTORY: fall, headinjury COMPARISON: None. TECHNIQUE: Unenhanced axial CT of the head and cervical spine was performed with coronal and sagittal reformats provided. FINDINGS: Head: Sequelae of chronic microvascular ischemic disease. There is encephalomalacia of the right frontal parietal lobes. No hydrocephalus, midline shift, extra-axial fluid collection or intracranial hemorrhage. Incidental note of intracranial vascular calcification. Trace opacification of the right mastoid. Middle ear is clear. Paranasal sinuses are clear. Orbits are intact. Status post bilateral lens replacements. Calvarium, skull base and osseous structures of the imaged face are intact. Scalp soft tissues are preserved. Cervical spine: Craniocervical junction is maintained. There is pannus formation about the dens. Grade 1 retrolisthesis at C3-4. Grade 1 anterolisthesis at C5-6 and C7-T1. Vertebral body heights are maintained. No acute osseous abnormality. Multilevel degenerative disc disease which is most severe at C3-4 where disc osteophyte complex results in mild spinal canal narrowing and severe right foraminal narrowing secondary to uncovertebral joint and facet arthrosis. Lung apices are clear. Paraspinal soft tissues are within normal limits. CT/CT cervical spine wo con IMPRESSION: No acute intracranial process. Sequelae of chronic microvascular ischemic disease and encephalomalacia of the posterior right frontal and anterior parietal lobes. No acute osseous abnormality of the cervical spine. Multilevel degenerative disc disease and spondylolisthesis as above. Electronically authenticated by: DAXA COLMENARES Date: 09/04/2023 21:09
--- NOTE | 2023-09-04 19:48 | ECG_ITS ---
The [facility] Test Date: 2023-09-04 Pat Name: SUJATA BERRIOS Department: Room: - Gender: Female [employer]: : 1940 Requested By: [id number] Order Number: [id number] Reading MD: CK SHELTON Measurements Intervals [place] Rate: 89 P: -23790 ND: -19403 QRS: -75 QRSD: 98 T: 256 QT: 386 QTc: 432 Interpretive Statements 41882 Atrial fibrillation with aberrant conduction, or ventricular premature complexes Rigth Bundle Branch Block 3114 Cannot rule out anterior myocardial infarction, age undetermined 36854 Inferior myocardial infarction with posterior extension, age undetermined [address] depression, consistent with subendocardial injury 8102 Low QRS voltage in chest leads 9150 abnormal ECG Electronically Signed On 09-06-2023 7:10:49 EDT by CK SHELTON
--- NOTE | 2023-09-04 19:48 | XR_ITS ---
The [address] [address] Patient Name: SUJATA BERRIOS MRN: [id number] date: 1940 Sex: F Assigned Patient Location: ER Current Patient Location: ER Accession/Order Number: [id number] Exam Date: 09/04/2023 20:50 Report Date: 09/04/2023 21:46 At the request of: JAIDEN ORELLANA Procedure: XR hip RT 2V w/ pelvis XR hip RT 2V w/ pelvis: HISTORY: pain right leg s/p fall pain right leg s/p fall COMPARISON: None available. TECHNIQUE: 3 right hip/bony pelvis views are submitted. FINDINGS: BONES/JOINT SPACES: The patient has undergone bilateral hip arthroplasty. The hardware demonstrates anatomic alignment. No acute fractures are present in the right hip or bony pelvis based on this examination. SOFT TISSUES: The soft tissues are unremarkable. XR/XR hip RT 2V w/ pelvis IMPRESSION: Status post bilateral hip arthroplasty. No acute fractures in the right hip or bony pelvis. Electronically authenticated by: RIKI MEYER Date: 09/04/2023 21:46
--- NOTE | 2023-09-04 19:48 | XR_ITS ---
The [address] [address] Patient Name: SUJATA BERRIOS MRN: [id number] date: 1940 Sex: F Assigned Patient Location: ER Current Patient Location: ED.MAIN Accession/Order Number: [id number] Exam Date: 09/04/2023 20:50 Report Date: 09/04/2023 21:43 At the request of: JAIDEN ORELLANA Procedure: XR chest 1V EXAM: XR chest 1V HISTORY: Fall COMPARISON: Chest x-ray 06/12/2023 TECHNIQUE: Single AP radiograph of the chest FINDINGS: Cardiomegaly with bibasilar effusions. No pneumothorax. No definite consolidation. No acute osseous abnormality. XR/XR chest 1V IMPRESSION: Stable cardiomegaly with likely small bibasilar effusions. Electronically authenticated by: DAXA COLMENARES Date: 09/04/2023 21:43
--- NOTE | 2023-09-04 19:48 | CT_ITS ---
The [address] [address] Patient Name: SUJATA BERRIOS MRN: [id number] date: 1940 Sex: F Assigned Patient Location: ER Current Patient Location: ER Accession/Order Number: [id number] Exam Date: 09/04/2023 20:27 Report Date: 09/04/2023 21:09 At the request of: JAIDEN ORELLANA Procedure: CT head/brain wo con EXAM: CT head/brain wo con, CT cervical spine wo con HISTORY: fall, headinjury COMPARISON: None. TECHNIQUE: Unenhanced axial CT of the head and cervical spine was performed with coronal and sagittal reformats provided. FINDINGS: Head: Sequelae of chronic microvascular ischemic disease. There is encephalomalacia of the right frontal parietal lobes. No hydrocephalus, midline shift, extra-axial fluid collection or intracranial hemorrhage. Incidental note of intracranial vascular calcification. Trace opacification of the right mastoid. Middle ear is clear. Paranasal sinuses are clear. Orbits are intact. Status post bilateral lens replacements. Calvarium, skull base and osseous structures of the imaged face are intact. Scalp soft tissues are preserved. Cervical spine: Craniocervical junction is maintained. There is pannus formation about the dens. Grade 1 retrolisthesis at C3-4. Grade 1 anterolisthesis at C5-6 and C7-T1. Vertebral body heights are maintained. No acute osseous abnormality. Multilevel degenerative disc disease which is most severe at C3-4 where disc osteophyte complex results in mild spinal canal narrowing and severe right foraminal narrowing secondary to uncovertebral joint and facet arthrosis. Lung apices are clear. Paraspinal soft tissues are within normal limits. CT/CT head/brain wo con IMPRESSION: No acute intracranial process. Sequelae of chronic microvascular ischemic disease and encephalomalacia of the posterior right frontal and anterior parietal lobes. No acute osseous abnormality of the cervical spine. Multilevel degenerative disc disease and spondylolisthesis as above. Electronically authenticated by: DAXA COLMENARES Date: 09/04/2023 21:09
--- NOTE | 2023-09-04 19:52 | ED_ITS ---
HPI HPI - General Adult General Chief complaint: Extremity Injury, Lower Stated complaint: fall lower pain Time Seen by Provider: 09/04/23 19:41 Mode of arrival: ambulance Limitations: other Limitations comment: hard of hearing History of Present Illness HPI narrative: 83-year-old female presents to the ER from [facility] via EMS. Concern is with pain in the right leg. Patient living in assisted living had a fall earlier today around 4 PM. It is unknown how long she was laying on the ground for. Patient states she pressed her button but no one came. Nursing notes advised the patient had no complaints and was helped up. Patient then began complaining of right leg pain and EMS was called for transport. Patient alert and oriented to person and place. Per report from correction stated no head injury, patient states she did hit her head, and is on Eliquis. She appears in no distress and has Compression wraps for chronic lower leg edema. Patient appears nontoxic and in no acute distress. Related Data Home Medications ?Medication ?Instructions ?Recorded ?Confirmed apixaban 5 mg tablet (Eliquis) 5 mg PO Q12H 06/11/23 06/11/23 citalopram 20 mg tablet 20 mg PO DAILY 06/11/23 06/11/23 furosemide 40 mg tablet 40 mg PO Q12H 06/11/23 06/11/23 levothyroxine 25 mcg tablet 25 mcg PO DAILY 06/11/23 06/11/23 losartan 25 mg tablet 25 mg PO DAILY 06/11/23 06/11/23 magnesium oxide 400 mg PO .qod 06/11/23 06/11/23 melatonin 5 mg capsule 5 mg PO QPM 06/11/23 06/11/23 metoprolol tartrate 25 mg tablet 25 mg PO TID 06/11/23 06/11/23 potassium chloride 20 mEq 20 meq PO DAILY 06/11/23 06/11/23 tablet,extended release(part/cryst) quetiapine 25 mg tablet 25 mg PO DAILY 06/11/23 06/11/23 quetiapine 25 mg tablet (Seroquel) 50 mg PO QPM 06/11/23 06/11/23 Previous Rx's ?Medication ?Instructions ?Recorded levofloxacin 500 mg tablet 500 mg PO DAILY 7 days #7 tabs 06/15/23 Allergies Allergy/AdvReac Type Severity Reaction Status Date / Time black pepper Allergy Unknown Verified 06/11/23 10:52 Opioid HPI Opioid Management Most Recent Opioid Data: Last Pain Scale 0 06/13/23 12:00 Last Pain Intensity 0 06/13/23 10:33 Review of Systems ROS Status of ROS unobtainable due to mental status (Answers to questions, but unsure of validity) Constitutional Denies: fever, chills or change in weight Ears, nose, mouth, and throat Denies: throat pain or neck pain Cardiovascular Reports: edema and swelling of feet/ankles; Denies: chest pain, palpitations or shortness of breath when lying down Respiratory Denies: shortness of breath Gastrointestinal Denies: abdominal pain, nausea, vomiting or diarrhea Genitourinary Denies: painful urination or urinary frequency Musculoskeletal Reports: extremity pain (Right knee) Neurological Denies: headache Psychiatric Denies: anxiety Endocrine Denies: excessive urination Allergic/Immunologic Denies: hives [facility] Medical History (Updated 09/04/23 @ 21:51 by CAREY Ruano) Pericardial effusion without cardiac tamponade ?I31.39 - Other pericardial effusion (noninflammatory) (ICD-10) Tricuspid valve regurgitation, nonrheumatic ?I36.1 - Nonrheumatic tricuspid (valve) insufficiency (ICD-10) Right heart failure ?I50.810 - Right heart failure, unspecified (ICD-10) Hypoxia ?R09.02 - Hypoxemia (ICD-10) Acute congestive heart failure ?I50.9 - Heart failure, unspecified (ICD-10) Pleural effusion ?J90 - Pleural effusion, not elsewhere classified (ICD-10) Congestive heart failure ?I50.9 - Heart failure, unspecified (ICD-10) Hypothyroidism (acquired) ?E03.9 - Hypothyroidism, unspecified (ICD-10) CVA (cerebral vascular accident) ?I63.9 - Cerebral infarction, unspecified (ICD-10) Hypertension ?I10 - Essential (primary) hypertension (ICD-10) Atrial fibrillation ?I48.91 - Unspecified atrial fibrillation (ICD-10) Surgical History H/O bilateral hip replacements ?Z96.643 - Presence of artificial hip joint, bilateral (ICD-10) History of bilateral knee replacement ?Z96.653 - Presence of artificial knee joint, bilateral (ICD-10) Family History Father Family history of myocardial infarction Family history of hypertension Mother Family history of myocardial infarction Family history of hypertension Social History Within the past year, how often did you have a drink containing alcohol: 2-3 times a week Smoking status: Never smoker Non-prescribed substance use: denies use Highest level of school completed/degree received: Master's degree Exam Narrative Exam Narrative: Nurses notes and vital signs reviewed and patient is not hypoxic. General: The patient appears well and in no apparent distress. Patient is resting comfortably on cart. Skin: Warm, dry, no pallor noted.No evidence of rash Head: Normocephalic, atraumatic Neck: Supple, trachea mid-line, no tenderness, no lymphadenopathy Eye: Pupils equal, suspect cataract Extraocular movements intact Ears, Nose, Mouth, and Throat: TM are clear, normal light reflex, oral mucosa is moist, no posterior oropharynx erythema or hypertrophy, uvula is mid-line Cardiovascular: Irregularly irregular, 2/6 systolic ejection murmur Respiratory: Patient is in no distress, no accessory muscle use, lungs are clear to auscultation, no wheezing, rales or rhonchi. Chest Wall: no tenderness Back: non-tender, no CVA tenderness Musculoskeletal: normal ROM, , Plus pitting edema bilateral lower legs, compression wraps present. Excoriations to posterior thighs noted tenderness present right knee and with motion of right hip [place], no tenderness to the bilateral feet or ankle. Patient reports chronic paresthesia in the left leg. GI: Normal bowel sounds, no tenderness to palpation, no masses appreciated. No rebound, guarding, or rigidity noted. Neurological: A&O Person and place. Psychiatric: Cooperative, Patient appears agitated with answering questions. Constitutional Vital Signs, click to edit/add: Last Vital Signs Temp 97.6 F 09/04/23 19:42 Pulse 89 09/04/23 21:45 Resp 16 09/04/23 21:45 BP 130/75 09/04/23 21:45 Pulse Ox 96 09/04/23 21:45 O2 Del Method Room Air 09/04/23 21:45 Course Vital Signs Vital signs: Vital Signs Temperature 97.6 F 09/04/23 19:42 Pulse Rate 80 09/04/23 19:42 Respiratory Rate 16 09/04/23 19:42 Pulse Oximetry 93 L 09/04/23 19:42 Oxygen Delivery Method Room Air 09/04/23 19:42 Temperature 97.6 F 09/04/23 19:42 Pulse Rate 89 09/04/23 21:45 Respiratory Rate 16 09/04/23 21:45 Blood Pressure 130/75 09/04/23 21:45 Pulse Oximetry 96 09/04/23 21:45 Oxygen Delivery Method Room Air 09/04/23 21:45 Medical Decision Making MDM Narrative Medical decision making narrative: Patient presents with unwitnessed fall, unsure of how long she was on the ground for. longterm documentation suggested initially no complaints, status post fall patient presents to the ER 3.5 to 4 hours later with complaint of right leg pain. Pt also noting head injury with fall, initially not communicated by staff. No distress. We discussed imaging studies with her concern of head injury, right leg pain. She has had bilateral hip replacements and right knee replacement. Patient is able to straight leg raise. Patient is hard of hearing but with repetitive questioning she does perform tasks. Her lab work was reviewed appears stable with anemia. Patient is on fall precautions at the senior care facility and I feel she is stable for discharge back to their facility for ongoing monitoring. Recommend walker with activities. The patient is to followup with primary care physician in next 2-3 days or to return to the emergency department should any of the signs or symptoms worsen or new symptoms develop. Patient had questions answered. The patient agrees with the following Diagnosis and Treatment plan and the patient will be SNF. Lab Data Lab results reviewed: Yes I reviewed the patient's lab results Labs: Lab Results 09/04/23 09/04/23 Range/Units 20:02 20:16 WBC 4.9 (4.0-11.0) 10^3/uL RBC 3.83 L (4.20-5.40) 10^6/uL Hgb 8.7 L (12.0-16.0) g/dL Hct 28.5 L (36.0-48.0) % MCV 74.4 L (81.0-99.0) fL MCH 22.7 L (26.7-34.0) pg MCHC 30.5 (29.9-35.2) g/dL RDW 20.7 H (11.0-15.0) % Plt Count 195 (150-450) 10^3/uL MPV 9.9 (9.5-13.5) fL Neut % (Auto) 47.0 (43.0-75.0) % Lymph % (Auto) 30.1 (20.5-60.0) % Dixie % (Auto) 18.6 H (1.7-12.0) % Eos % (Auto) 2.9 (0.9-7.0) % Baso % (Auto) 1.2 (0.2-2.0) % Neut # (Auto) 2.3 (1.4-6.5) 10^3/uL Lymph # (Auto) 1.5 (1.2-3.8) 10^3/uL [place] # (Auto) 0.9 H (0.3-0.8) 10^3/uL Eos # (Auto) 0.1 (0.0-0.7) 10^3/uL Baso # (Auto) 0.1 (0.0-0.1) 10^3/uL Abs Immat Gran (auto) 0.01 (0.00-0.03) 10^3/uL Imm/Tot Granulo (auto) 0.2 (0.0-0.5) % Sodium 136 (136-145) mmol/L Potassium 4.1 (3.5-5.1) mmol/L Chloride 101 (98-107) mmol/L Carbon Dioxide 28.9 (21.0-32.0) mmol/L Anion Gap 10.2 BUN 17.0 (7.0-18.0) mg/dL Creatinine 0.92 (0.55-1.02) mg/dL Est GFR ( Amer) >60 (>=60) Est GFR (Non-Af Amer) 58 L (>=60) BUN/Creatinine Ratio 18.5 Glucose 98 (74-106) mg/dL Calcium 8.7 (8.5-10.1) mg/dL Total Bilirubin 1.0 (0.2-1.0) mg/dL AST 11 L (15-37) U/L ALT 9 L (14-59) U/L Alkaline Phosphatase 151 H (46-116) U/L Total Creatine Kinase 79 (26-192) U/L CK-MB (CK-2) 1.97 (<=3.60) ng/mL Myoglobin 77 (9-82) ng/mL Troponin I High Sens 9.1 (4.0-51.3) pg/mL Total Protein 7.8 (6.4-8.2) g/dL Albumin 3.0 L (3.4-5.0) g/dL Globulin 4.8 g/dL Albumin/Globulin Ratio 0.6 Urine Color Yellow (YELLOW) Urine Clarity Clear (CLEAR) Urine pH 6.5 (5.0-9.0) Ur Specific [place] 1.010 (1.005-1.025) Urine Protein Negative (NEG/TRACE) mg/dL Urine Glucose (UA) Negative (NEGATIVE) mg/dL Urine Ketones Negative (NEGATIVE) mg/dL Urine Occult Blood Negative (NEGATIVE) Urine Nitrite Negative (NEGATIVE) Urine Bilirubin Negative (NEGATIVE) Urine Urobilinogen 1.0 (0.2-1.0) EU/dL Ur Leukocyte Esterase Negative (NEGATIVE) Imaging Data CT scan - head: Radiologist's impression: ITS Impressions Cervical Spine CT 09/04/23 19:48 IMPRESSION: No acute intracranial process. Sequelae of chronic microvascular ischemic disease and encephalomalacia of the posterior right frontal and anterior parietal lobes. No acute osseous abnormality of the cervical spine. Multilevel degenerative disc disease and spondylolisthesis as above. Electronically authenticated by: DAXA COLMENARES Date: 09/04/2023 21:09 Chest X-Ray 09/04/23 19:48 IMPRESSION: Stable cardiomegaly with likely small bibasilar effusions. Electronically authenticated by: DAXA COLMENARES Date: 09/04/2023 21:[address] 09/04/23 19:48 IMPRESSION: No acute intracranial process. Sequelae of chronic microvascular ischemic disease and encephalomalacia of the posterior right frontal and anterior parietal lobes. No acute osseous abnormality of the cervical spine. Multilevel degenerative disc disease and spondylolisthesis as above. Electronically authenticated by: DAXA COLMENARES Date: 09/04/2023 21:09 X-ray of the right hip and pelvis negative for acute fracture,Stable hip prosthesis, x-ray right knee stable knee prosthesis no acute fracture. xray: Radiologist's impression: ITS Impressions Cervical Spine CT 09/04/23 19:48 IMPRESSION: No acute intracranial process. Sequelae of chronic microvascular ischemic disease and encephalomalacia of the posterior right frontal and anterior parietal lobes. No acute osseous abnormality of the cervical spine. Multilevel degenerative disc disease and spondylolisthesis as above. Electronically authenticated by: DAXA COLMENARES Date: 09/04/2023 21:09 Chest X-Ray 09/04/23 19:48 IMPRESSION: Stable cardiomegaly with likely small bibasilar effusions. Electronically authenticated by: DAXA COLMENARES Date: 09/04/2023 21:[address] 09/04/23 19:48 IMPRESSION: No acute intracranial process. Sequelae of chronic microvascular ischemic disease and encephalomalacia of the posterior right frontal and anterior parietal lobes. No acute osseous abnormality of the cervical spine. Multilevel degenerative disc disease and spondylolisthesis as above. Electronically authenticated by: DAXA COLMENARES Date: 09/04/2023 21:09 Hip/Pelvis X-Ray 09/04/23 19:48 IMPRESSION: Status post bilateral hip arthroplasty. No acute fractures in the right hip or bony pelvis. Electronically authenticated by: RIKI MEYER Date: 09/04/2023 21:46 Knee X-Ray 09/04/23 19:48 IMPRESSION: Status post right knee total arthroplasty without hardware complication or acute osseous abnormality. Electronically authenticated by: DAXA COLMENARES Date: 09/04/2023 21:46 ECG Data Attestation: I personally reviewed and interpreted this ECG as follows: Interpretation: EKG interpretation: Emergency Department physician interpretation, A-fib 89 bPM + artifact no ST segment elevation, Discharge Plan Discharge Stand Alone Forms: Portal Instructions Chief Complaint: Extremity Injury, Lower Clinical Impression: Closed head injury, Fall, Contusion of leg, right Patient Disposition: Home, Self-Care Time of Disposition Decision: 21:50 Condition: Good Prescriptions / Home Meds: No Action quetiapine 25 mg tablet 25 mg PO DAILY furosemide 40 mg tablet 40 mg PO Q12H levothyroxine 25 mcg tablet 25 mcg PO DAILY citalopram 20 mg tablet 20 mg PO DAILY potassium chloride 20 mEq tablet,ER particles/crystals 20 meq PO DAILY losartan 25 mg tablet 25 mg PO DAILY metoprolol tartrate 25 mg tablet 25 mg PO TID Eliquis 5 mg tablet 5 mg PO Q12H melatonin 5 mg capsule 5 mg PO QPM quetiapine [Seroquel] 25 mg tablet 50 mg PO QPM magnesium oxide 400 mg magnesium tablet 400 mg PO .qod levofloxacin 500 mg tablet 500 mg PO DAILY 7 Days Qty: 7 0RF Print Language: Mongolian Instructions: Head Injury (DC), Contusion in Adults (ED) Additional Instructions: Discharge back to retirement facility. No acute fx. Recommend cont fall precautions, 1:1 transfers. Follow up with your doctor in 1-3 days Referrals: Physician,Non-Staff, MD [Primary Care Provider] - As soon as possible
[2023-09-04] MEDS: ACETAMINOPHEN 500 MG TABLET PO (20:17)
[2023-09-04 20:29] LABS: Basophils Absolute Auto 0.1 10^3/uL (0.0-0.1); Basophils Percent Auto 1.2 % (0.2-2.0); Eosinophils Absolute Auto 0.1 10^3/uL (0.0-0.7); Eosinophils Percent Auto 2.9 % (0.9-7.0); Hematocrit 28.5 % (36.0-48.0); Hemoglobin 8.7 g/dL (12.0-16.0); Immature Granulocytes Abs Auto 0.01 10^3/uL (0.00-0.03); Immature Granulocytes Pct Auto 0.2 % (0.0-0.5); Lymphocytes Absolute Auto 1.5 10^3/uL (1.2-3.8); Lymphocytes Percent Auto 30.1 % (20.5-60.0); Mean Corpuscular HGB Conc 30.5 g/dL (29.9-35.2); Mean Corpuscular Hemoglobin 22.7 pg (26.7-34.0); Mean Corpuscular Volume 74.4 fL (81.0-99.0); Mean Platelet Volume 9.9 fL (9.5-13.5); Monocytes Absolute Auto 0.9 10^3/uL (0.3-0.8); Monocytes Percent Auto 18.6 % (1.7-12.0); Neutrophils Absolute Auto 2.3 10^3/uL (1.4-6.5); Platelet Count 195 10^3/uL (150-450); Red Blood Count 3.83 10^6/uL (4.20-5.40); Red Cell Distribution Width 20.7 % (11.0-15.0); White Blood Count 4.9 10^3/uL (4.0-11.0)
[2023-09-04 20:32] LABS: Bilirubin Urine NEGATIVE (NEGATIVE); Blood Urine NEGATIVE (NEGATIVE); Clarity Urine CLEAR (CLEAR); Color Urine YELLOW (YELLOW); Glucose Urine UA NEGATIVE (NEGATIVE); Ketones Urine NEGATIVE (NEGATIVE); Leukocyte Esterase Urine NEGATIVE (NEGATIVE); Nitrite Urine NEGATIVE (NEGATIVE); Protein Urine NEGATIVE (NEG/TRACE); pH Urine 6.5 (5.0-9.0)
[2023-09-04 20:36] LABS: Urine Microscopic Indicated NO
[2023-09-04 20:46] LABS: Alanine Aminotransferase 9 U/L (14-59); Albumin Globulin Ratio 0.6; Alkaline Phosphatase 151 U/L (46-116); Anion Gap 10.2; Aspartate Amino Transferase 11 U/L (15-37); BUN Creatinine Ratio 18.5; Calcium 8.7 mg/dL (8.5-10.1); Carbon Dioxide 28.9 mmol/L (21.0-32.0); Chloride 101 mmol/L (98-107); Estimated GFR (African America >60 (>=60); Estimated GFR (Non-African Ame 58 (>=60); Globulin 4.8 g/dL; Glucose 98 mg/dL (74-106); Potassium 4.1 mmol/L (3.5-5.1); Sodium 136 mmol/L (136-145); Total Protein 7.8 g/dL (6.4-8.2)
[2023-09-04 21:17] VITALS: BP 105/74; PULSE 91; O2SAT 997
--- NOTE | 2023-09-04 21:19 | PC.NURSE ---
Labia excoriated with small sores.
[2023-09-04 21:28] LABS: Creatine Kinase 79 U/L (26-192); Creatine Kinase MB 1.97 ng/mL (<=3.60); Myoglobin 77 ng/mL (9-82); Troponin I High Sensitivity 9.1 pg/mL (4.0-51.3)
[2023-09-04 21:45] VITALS: BP 130/75; PULSE 89; O2SAT 96
--- NOTE | 2023-09-04 23:04 | PC.NURSE ---
shelter called report, aware of ETA
[2023-09-04 23:06] VITALS: BP 120/78; PULSE 72; O2SAT 94
[2023-09-04 23:49] VITALS: BP 113/77; PULSE 94; O2SAT 100
[2023-09-05 00:47] VITALS: BP 105/60; PULSE 93; O2SAT 96
== END 2023-09-05 00:53 | disposition home or self-care (01) ==
PROVIDERS: Personal Emergency Response Attendant; Emergency Provider Emergency Medicine
DX: S80.11XA Contusion of right lower leg, initial encounter (principal); S09.8XXA Other specified injuries of head, initial encounter; W19.XXXA Unspecified fall, initial encounter; Z79.01 Long term (current) use of anticoagulants; Z79.899 Other long term (current) drug therapy; Z79.890 Hormone replacement therapy; I11.0 Hypertensive heart disease with heart failure; I50.9 Heart failure, unspecified; E03.9 Hypothyroidism, unspecified; Z86.73 Personal history of transient ischemic attack (TIA), and cerebral infarction without residual deficits; I48.91 Unspecified atrial fibrillation; I36.1 Nonrheumatic tricuspid (valve) insufficiency; Z96.643 Presence of artificial hip joint, bilateral; Z96.653 Presence of artificial knee joint, bilateral
CPT/HCPCS: 36415; 70450; 71045; 72125; 73502; 73562; 80053; 81003; 82550; 82553; 83874; 84484; 85025; 93005; 99285

== ENCOUNTER 2023-12-06 18:34 | Inpatient (IN) | payer MEDICARE, SELFPAY ==
[2023-12-06] VITALS (25 sets, daily range): BP systolic 97–116; BP diastolic 57–72; PULSE 87–107; TEMP 36.8–37.6; O2SAT 65–98; BMI 34.7; BMI 33.4
--- NOTE | 2023-12-06 18:50 | ECG_ITS ---
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
--- NOTE | 2023-12-06 19:14 | XR_ITS ---
[address] [address] Patient Name: SUJATA BERRIOS MRN: [id number] date: 1940 Sex: F Assigned Patient Location: ER Current Patient Location: ED.MAIN Accession/Order Number: [id number] Exam Date: 12/06/2023 19:45 Report Date: 12/06/2023 20:43 At the request of: CHARY DENIS Procedure: XR chest 1V EXAMINATION:XR chest 1V INDICATION:sob COMPARISON:09/04/2023 TECHNIQUE:A single frontal view of the chest is submitted. FINDINGS: The cardiac silhouette is enlarged but stable. No pulmonary vascular congestion has developed. Similar left basilar opacification persists. There is a small right pleural effusion. XR/XR chest 1V IMPRESSION: Small right pleural effusion. No acute airspace disease. Electronically authenticated by: RIKI MEYER Date: 12/06/2023 20:43
[2023-12-06 19:19] LABS: Eosinophils Absolute Auto 0.1 10^3/uL (0.0-0.7); Eosinophils Percent Auto 1.2 % (0.9-7.0); Hematocrit 27.4 % (36.0-48.0); Hemoglobin 8.4 g/dL (12.0-16.0); Immature Granulocytes Abs Auto 0.01 10^3/uL (0.00-0.03); Immature Granulocytes Pct Auto 0.2 % (0.0-0.5); Lymphocytes Absolute Auto 0.9 10^3/uL (1.2-3.8); Lymphocytes Percent Auto 22.6 % (20.5-60.0); Mean Corpuscular HGB Conc 30.7 g/dL (29.9-35.2); Mean Corpuscular Hemoglobin 21.6 pg (26.7-34.0); Mean Corpuscular Volume 70.4 fL (81.0-99.0); Mean Platelet Volume 10.1 fL (9.5-13.5); Monocytes Absolute Auto 0.9 10^3/uL (0.3-0.8); Monocytes Percent Auto 22.1 % (1.7-12.0); Neutrophils Absolute Auto 2.2 10^3/uL (1.4-6.5); Neutrophils Percent Auto 52.9 % (43.0-75.0); Platelet Count 205 10^3/uL (150-450); Red Blood Count 3.89 10^6/uL (4.20-5.40); Red Cell Distribution Width 20.7 % (11.0-15.0); White Blood Count 4.1 10^3/uL (4.0-11.0)
[2023-12-06 19:33] LABS: Alanine Aminotransferase 12 U/L (14-59); Albumin Globulin Ratio 0.6; Albumin Level 2.6 g/dL (3.4-5.0); Alkaline Phosphatase 132 U/L (46-116); Anion Gap 9.5; Aspartate Amino Transferase 13 U/L (15-37); BUN Creatinine Ratio 14.2; Bilirubin Total 0.8 mg/dL (0.2-1.0); Calcium 8.4 mg/dL (8.5-10.1); Carbon Dioxide 28.7 mmol/L (21.0-32.0); Chloride 95 mmol/L (98-107); Estimated GFR (African America 55 (>=60); Estimated GFR (Non-African Ame 46 (>=60); Globulin 4.7 g/dL; Glucose 93 mg/dL (74-106); Potassium 3.2 mmol/L (3.5-5.1); Sodium 130 mmol/L (136-145); Total Protein 7.3 g/dL (6.4-8.2)
--- NOTE | 2023-12-06 19:33 | ED.GENADUL1 ---
HPI HPI - General Adult General Chief complaint: Extremity Problem, Nontraumatic Stated complaint: SOB Time Seen by Provider: 12/06/23 19:24 Source: patient Mode of arrival: ambulance History of Present Illness HPI narrative: limited history custodial patient. Reported shortness of breath and swelling of her legs. Patient is not able to provide any history she is pleasantly confused and likely has dementia. past history of A. fib, CHF, pleural effusion. reported pulse ox RA 89%. She does not normally use 02 Related Data Home Medications ?Medication ?Instructions ?Recorded ?Confirmed apixaban 5 mg tablet (Eliquis) 5 mg PO Q12H 06/11/23 12/06/23 citalopram 20 mg tablet 20 mg PO DAILY 06/11/23 12/06/23 furosemide 40 mg tablet 40 mg PO Q12H 06/11/23 12/06/23 levothyroxine 25 mcg tablet 25 mcg PO DAILY 06/11/23 12/06/23 losartan 25 mg tablet 25 mg PO DAILY 06/11/23 12/06/23 magnesium oxide 400 mg PO .qod 06/11/23 12/06/23 melatonin 5 mg capsule 5 mg PO QPM 06/11/23 12/06/23 metoprolol tartrate 25 mg tablet 25 mg PO TID 06/11/23 12/06/23 quetiapine 25 mg tablet 25 mg PO DAILY 06/11/23 12/06/23 quetiapine 25 mg tablet (Seroquel) 50 mg PO QPM 06/11/23 12/06/23 cholecalciferol (vitamin D3) 50 50 mcg PO DAILY 12/06/23 12/06/23 mcg (2,000 unit) capsule (Vitamin D3) cyanocobalamin (vitamin B-12) 100 100 mcg PO DAILY 12/06/23 12/06/23 mcg tablet (Vitamin B-12) furosemide 40 mg tablet (Lasix) 40 mg PO DAILY PRN edema 12/06/23 12/06/23 spironolactone 25 mg tablet 25 mg PO DAILY 12/06/23 12/06/23 Previous Rx's ?Medication ?Instructions ?Recorded levofloxacin 500 mg tablet 500 mg PO DAILY 7 days #7 tabs 06/15/23 Allergies Allergy/AdvReac Type Severity Reaction Status Date / Time cephalexin [From Keflex] Allergy Mild Rash Verified 12/06/23 19:14 potassium chloride Allergy Mild Rash Verified 12/06/23 19:14 [id number]-[id number]-[id number] Reductase Allergy Mild Abdominal Verified 12/06/23 19:14 Inhibitor Pain black pepper Allergy Unknown Rash Verified 12/06/23 19:14 Opioid HPI Opioid Management Most Recent Opioid Data: Last Pain Scale 0 06/13/23 12:00 Last Pain Intensity 0 06/13/23 10:33 Review of Systems ROS Status of ROS unobtainable due to mental status PFSH [facility] Medical History (Updated 12/06/23 @ 20:13 by Joe Nath MD) Pericardial effusion without cardiac tamponade ?I31.39 - Other pericardial effusion (noninflammatory) (ICD-10) Tricuspid valve regurgitation, nonrheumatic ?I36.1 - Nonrheumatic tricuspid (valve) insufficiency (ICD-10) Right heart failure ?I50.810 - Right heart failure, unspecified (ICD-10) Hypoxia ?R09.02 - Hypoxemia (ICD-10) Acute congestive heart failure ?I50.9 - Heart failure, unspecified (ICD-10) Pleural effusion ?J90 - Pleural effusion, not elsewhere classified (ICD-10) Congestive heart failure ?I50.9 - Heart failure, unspecified (ICD-10) Hypothyroidism (acquired) ?E03.9 - Hypothyroidism, unspecified (ICD-10) CVA (cerebral vascular accident) ?I63.9 - Cerebral infarction, unspecified (ICD-10) Hypertension ?I10 - Essential (primary) hypertension (ICD-10) Atrial fibrillation ?I48.91 - Unspecified atrial fibrillation (ICD-10) Surgical History H/O bilateral hip replacements ?Z96.643 - Presence of artificial hip joint, bilateral (ICD-10) History of bilateral knee replacement ?Z96.653 - Presence of artificial knee joint, bilateral (ICD-10) Family History Father Family history of myocardial infarction Family history of hypertension Mother Family history of myocardial infarction Family history of hypertension Social History Within the past year, how often did you have a drink containing alcohol: 2-3 times a week Smoking status: Never smoker Non-prescribed substance use: denies use Highest level of school completed/degree received: Master's degree Exam Constitutional Vital Signs, click to edit/add: Last Vital Signs Temp 98.2 F 12/06/23 18:40 Pulse 94 H 12/06/23 18:40 Resp 15 12/06/23 18:40 BP 112/69 12/06/23 18:40 Pulse Ox 95 12/06/23 19:01 O2 Del Method Nasal Cannula 12/06/23 19:01 O2 Flow Rate 2 12/06/23 19:01 Common normals: no apparent distress, average body habitus, alert and well nourished HENMT Common normals: normocephalic and head/scalp atraumatic Respiratory Common normals: normal respiratory effort Effort & inspection: audible wheezes (mild) Cardio Common normals: S1 normal heart sound and S2 normal heart sound Rhythm: abnormal rhythm GI Common normals: Normal to inspection, nondistended, normoactive bowel sounds present, soft to palpation and non-tender Extremity Other: stasis edema . 2+ edema bilat lower ext Neuro Common normals: CN's II-XII intact bilaterally, moves all extremities and no focal motor deficits Sensorium/orientation: awake and alert Psych Appearance: grossly normal Course Vital Signs Vital signs: Vital Signs Temperature 98.2 F 12/06/23 18:40 Pulse Rate 94 H 12/06/23 18:40 Respiratory Rate 15 12/06/23 18:40 Blood Pressure 112/69 12/06/23 18:40 Pulse Oximetry 95 12/06/23 18:40 Oxygen Delivery Method Nasal Cannula 12/06/23 18:40 Oxygen Delivery Flow Rate 2 12/06/23 18:40 Temperature 98.2 F 12/06/23 18:40 Pulse Rate 94 H 12/06/23 18:40 Respiratory Rate 15 12/06/23 18:40 Blood Pressure 112/69 12/06/23 18:40 Pulse Oximetry 95 12/06/23 19:01 Oxygen Delivery Method Nasal Cannula 12/06/23 19:01 Oxygen Delivery Flow Rate 2 12/06/23 19:01 Medical Decision Making MDM Narrative Medical decision making narrative: custodial patient with past history of CHF and A. Fib. presents with shortness of breath and worsening edema of her lower extremities. has chronic stasis dermatitis. I do not feel she has cellultis of her legs. Cxray with cardiomegaly, left pleural effusion and mild cephalization. BNP 4564. Hgb 8.4. Patient has chronic anemia. mild deficiency of potassium at 3.2. Discussed with hospitalist and will plan admission for CHF. Lasix 60 IVP ordered Lab Data Labs: Lab Results 12/06/23 12/06/23 Range/Units 18:50 19:30 WBC 4.1 (4.0-11.0) 10^3/uL RBC 3.89 L (4.20-5.40) 10^6/uL Hgb 8.4 L (12.0-16.0) g/dL Hct 27.4 L (36.0-48.0) % MCV 70.4 L (81.0-99.0) fL MCH 21.6 L (26.7-34.0) pg MCHC 30.7 (29.9-35.2) g/dL RDW 20.7 H (11.0-15.0) % Plt Count 205 (150-450) 10^3/uL MPV 10.1 (9.5-13.5) fL Neut % (Auto) 52.9 (43.0-75.0) % Lymph % (Auto) 22.6 (20.5-60.0) % Dodge % (Auto) 22.1 H (1.7-12.0) % Eos % (Auto) 1.2 (0.9-7.0) % Baso % (Auto) 1.0 (0.2-2.0) % Neut # (Auto) 2.2 (1.4-6.5) 10^3/uL Lymph # (Auto) 0.9 L (1.2-3.8) 10^3/uL Dodge # (Auto) 0.9 H (0.3-0.8) 10^3/uL Eos # (Auto) 0.1 (0.0-0.7) 10^3/uL Baso # (Auto) 0.0 (0.0-0.1) 10^3/uL Abs Immat Gran (auto) 0.01 (0.00-0.03) 10^3/uL Imm/Tot Granulo (auto) 0.2 (0.0-0.5) % Sodium 130 L (136-145) mmol/L Potassium 3.2 L (3.5-5.1) mmol/L Chloride 95 L (98-107) mmol/L Carbon Dioxide 28.7 (21.0-32.0) mmol/L Anion Gap 9.5 BUN 16.0 (7.0-18.0) mg/dL Creatinine 1.13 H (0.55-1.02) mg/dL Est GFR ( Amer) 55 L (>=60) Est GFR (Non-Af Amer) 46 L (>=60) BUN/Creatinine Ratio 14.2 Glucose 93 (74-106) mg/dL Lactate 1.2 (0.4-2.0) mmol/L Calcium 8.4 L (8.5-10.1) mg/dL Total Bilirubin 0.8 (0.2-1.0) mg/dL AST 13 L (15-37) U/L ALT 12 L (14-59) U/L Alkaline Phosphatase 132 H (46-116) U/L NT-Pro-B Natriuret Pep 4564.0 H* (<=1800.0) pg/mL Total Protein 7.3 (6.4-8.2) g/dL Albumin 2.6 L (3.4-5.0) g/dL Globulin 4.7 g/dL Albumin/Globulin Ratio 0.6 Discharge Plan Discharge Chief Complaint: Extremity Problem, Nontraumatic Clinical Impression: Congestive heart failure, Hypoxemia, Edema of both lower legs, Chronic stasis dermatitis Patient Disposition: Admitted As Inpatient
[2023-12-06 19:54] LABS: Lactate/Lactic Acid 1.2 mmol/L (0.4-2.0)
[2023-12-06 20:28] LABS: Troponin I High Sensitivity 10.2 pg/mL (4.0-51.3)
[2023-12-06] MEDS: FUROSEMIDE 40 MG/4 ML VIAL 60 MG IVP (21:26)
--- NOTE | 2023-12-06 23:03 | PHOTOS ---
bilateral lower extremities
[2023-12-06] MEDS: APIXABAN 5 MG TABLET PO (23:54)
[2023-12-06] MEDS: QUETIAPINE FUMARATE 25 MG TABLET 50 MG PO (23:54)
[2023-12-07] VITALS (25 sets, daily range): BP systolic 89–111; BP diastolic 55–68; PULSE 62–114; TEMP 36.7–38.1; O2SAT 2–96
[2023-12-07] MEDS: ACETAMINOPHEN 325 MG TABLET 650 MG PO (04:30)
[2023-12-07] MEDS: METOPROLOL TARTRATE 25 MG TABLET PO (05:34)
[2023-12-07] MEDS: LEVOTHYROXINE SODIUM 25 MCG TABLET PO (05:34)
[2023-12-07 06:11] LABS: Basophils Percent Auto 0.5 % (0.2-2.0); Eosinophils Percent Auto 0.2 % (0.9-7.0); Hemoglobin 7.2 g/dL (12.0-16.0); Immature Granulocytes Abs Auto 0.01 10^3/uL (0.00-0.03); Immature Granulocytes Pct Auto 0.2 % (0.0-0.5); Lymphocytes Absolute Auto 1.3 10^3/uL (1.2-3.8); Lymphocytes Percent Auto 30.7 % (20.5-60.0); Mean Corpuscular HGB Conc 30.4 g/dL (29.9-35.2); Mean Corpuscular Hemoglobin 21.1 pg (26.7-34.0); Mean Corpuscular Volume 69.5 fL (81.0-99.0); Mean Platelet Volume 9.6 fL (9.5-13.5); Monocytes Absolute Auto 0.8 10^3/uL (0.3-0.8); Monocytes Percent Auto 19.8 % (1.7-12.0); Neutrophils Percent Auto 48.6 % (43.0-75.0); Platelet Count 173 10^3/uL (150-450); Red Blood Count 3.41 10^6/uL (4.20-5.40); Red Cell Distribution Width 20.4 % (11.0-15.0); White Blood Count 4.1 10^3/uL (4.0-11.0)
[2023-12-07 06:22] LABS: Hematocrit 23.7 % (36.0-48.0)
[2023-12-07 06:35] LABS: Alanine Aminotransferase 12 U/L (14-59); Albumin Globulin Ratio 0.6; Albumin Level 2.3 g/dL (3.4-5.0); Alkaline Phosphatase 105 U/L (46-116); Anion Gap 11.1; Aspartate Amino Transferase 13 U/L (15-37); BUN Creatinine Ratio 13.1; Bilirubin Total 0.8 mg/dL (0.2-1.0); Carbon Dioxide 27.6 mmol/L (21.0-32.0); Chloride 98 mmol/L (98-107); Estimated GFR (African America 59 (>=60); Estimated GFR (Non-African Ame 49 (>=60); Glucose 89 mg/dL (74-106); Sodium 134 mmol/L (136-145); Total Protein 6.3 g/dL (6.4-8.2)
[2023-12-07 06:40] LABS: Potassium 2.7 mmol/L (3.5-5.1)
[2023-12-07] MEDS: 0.9 % SODIUM CHLORIDE 250 ML 10 ML IV ×2 (08:22→17:48)
[2023-12-07] MEDS: POTASSIUM CHLORIDE 40 MEQ in 0.9 % SODIUM CHLORIDE 250 ML 67.5 MEQ IV (08:36)
--- NOTE | 2023-12-07 09:47 | SWNOTE1 ---
ENIO called and spoke with Gogo at [facility]. Pt is still a resident at [facility] and she does still have [facility] coming in as well. She voiced that she can walk with a walker with assitance and can wash herself up. They do sometimes transport her in a wheelchair, but overall fairly independent.
--- NOTE | 2023-12-07 10:28 | CM.NOTE ---
Rounds made with DR. Murillo. Continue with current plan of care.
--- NOTE | 2023-12-07 10:42 | P.HP_ITS ---
HPI H&P: HPI History of Present Illness Chief complaint: SOB; CHF Narrative: 83 y o female, with dementia, presented to ED with worsening SOB, and LE edema. Unfortunately patient is unable to provide any meaningful information. She is very hard of hearing and confused at baseline due to her dementia. She has hx of HFpEF and was hypoxic in ED with pulse Ox as low as 78 %. Patient also has elevated BNP on initial work up with pleural effusion noted on CXR along with LE edema. Patient was admitted overnight for acute on chronic diastolic HF and acute resp failure with hypoxia due to Acute on chronic diastolic HF. Patient was deeply asleep this morning with no evidence of resp distress. She startles when we interact with her and is very confused at baseline making it impossible to obtain any meaningful information from her. She is currently on 2 L O2 via NC. Opioid HPI Opioid Management Most Recent Pain and Opioid Data: Last Pain Scale 0 06/13/23 12:00 Last Pain Intensity 0 06/13/23 10:33 Last Pain Assessment 12/07/23 07:00 Last MAR Pain Assessment 12/07/23 05:31 Last ORT Total Score 0 12/06/23 22:00 Last ORT Risk Category Low Risk 12/06/23 22:00 Review of Systems ROS Status of ROS unobtainable due to mental status PFSH [facility] Medical History (Updated 12/07/23 @ 10:59 by Shaikh Chidi MD) Dementia ?F03.90 - Unspecified dementia, unspecified severity, without behavioral disturbance, psychotic disturbance, mood disturbance, and anxiety (ICD-10) Pericardial effusion without cardiac tamponade ?I31.39 - Other pericardial effusion (noninflammatory) (ICD-10) Tricuspid valve regurgitation, nonrheumatic ?I36.1 - Nonrheumatic tricuspid (valve) insufficiency (ICD-10) Right heart failure ?I50.810 - Right heart failure, unspecified (ICD-10) Hypoxia ?R09.02 - Hypoxemia (ICD-10) Acute congestive heart failure ?I50.9 - Heart failure, unspecified (ICD-10) Pleural effusion ?J90 - Pleural effusion, not elsewhere classified (ICD-10) Congestive heart failure ?I50.9 - Heart failure, unspecified (ICD-10) Hypothyroidism (acquired) ?E03.9 - Hypothyroidism, unspecified (ICD-10) CVA (cerebral vascular accident) ?I63.9 - Cerebral infarction, unspecified (ICD-10) Hypertension ?I10 - Essential (primary) hypertension (ICD-10) Atrial fibrillation ?I48.91 - Unspecified atrial fibrillation (ICD-10) Surgical History H/O bilateral hip replacements ?Z96.643 - Presence of artificial hip joint, bilateral (ICD-10) History of bilateral knee replacement ?Z96.653 - Presence of artificial knee joint, bilateral (ICD-10) Family History Father Family history of myocardial infarction Family history of hypertension Mother Family history of myocardial infarction Family history of hypertension Social History (Updated 12/06/23 @ 22:34 by Arlette Costa) Within the past year, how often did you have a drink containing alcohol: 2-3 times a week Smoking status: Never smoker Non-prescribed substance use: denies use Previous occupational history: retired Highest level of school completed/degree received: 11th grade Little interest or pleasure in doing things: not at all Feeling down, depressed, or hopeless: not at all Feel stressed/tense/nervous/anxious/difficulty sleeping: not at all Meds Home Medications and Allergies Home Medications ?Medication ?Instructions ?Recorded ?Confirmed ?Type apixaban 5 mg tablet (Eliquis) 5 mg PO Q12H 06/11/23 12/06/23 History citalopram 20 mg tablet 20 mg PO DAILY 06/11/23 12/06/23 History furosemide 40 mg tablet 40 mg PO Q12H 06/11/23 12/06/23 History levothyroxine 25 mcg tablet 25 mcg PO DAILY 06/11/23 12/06/23 History losartan 25 mg tablet 25 mg PO DAILY 06/11/23 12/06/23 History magnesium oxide 400 mg PO .qod 06/11/23 12/06/23 History melatonin 5 mg capsule 5 mg PO QPM 06/11/23 12/06/23 History metoprolol tartrate 25 mg tablet 25 mg PO TID 06/11/23 12/06/23 History quetiapine 25 mg tablet 25 mg PO DAILY 06/11/23 12/06/23 History quetiapine 25 mg tablet (Seroquel) 50 mg PO QPM 06/11/23 12/06/23 History acetaminophen 500 mg capsule 500 mg PO .q8 PRN pain 12/06/23 12/06/23 History brimonidine 0.025 % eye drops 1 drp ophthalmic (eye) BID 12/06/23 12/06/23 History cholecalciferol (vitamin D3) 50 50 mcg PO DAILY 12/06/23 12/06/23 History mcg (2,000 unit) capsule (Vitamin D3) cyanocobalamin (vitamin B-12) 100 100 mcg PO DAILY 12/06/23 12/06/23 History mcg tablet (Vitamin B-12) furosemide 40 mg tablet (Lasix) 40 mg PO DAILY PRN edema 12/06/23 12/06/23 History spironolactone 25 mg tablet 25 mg PO DAILY 12/06/23 12/06/23 History Allergies Allergy/AdvReac Type Severity Reaction Status Date / Time cephalexin [From Keflex] Allergy Mild Rash Verified 12/06/23 19:14 potassium chloride Allergy Mild Rash Verified 12/06/23 19:14 Vnspkge-NWL-RlI Reductase Allergy Mild Abdominal Verified 12/06/23 19:14 Inhibitor Pain black pepper Allergy Unknown Rash Verified 12/06/23 19:14 Exam Constitutional Vital Signs, click to edit/add: Last Vital Signs Temp 100.6 F H 12/07/23 04:00 Pulse 90 12/07/23 09:58 Resp 18 12/07/23 04:00 BP 101/55 12/07/23 04:00 Pulse Ox 92 L 12/07/23 04:00 O2 Del Method Nasal Cannula 12/07/23 04:00 O2 Flow Rate 2 12/07/23 04:00 Documenting provider has reviewed patient's vital signs: yes Common normals: no apparent distress and oriented x3 General appearance: ill appearing and frail appearing Nutritional appearance: obese Orientation/consciousness: Yes confused Respiratory Common normals: normal respiratory effort and no use of accessory muscles Auscultation: diminished lung sounds Cardio Common normals: regular rate, S1 normal heart sound and S2 normal heart sound Rate: regular rate Heart sounds: S1 normal and S2 normal GI Common normals: Normal to inspection, nondistended, normoactive bowel sounds present, soft to palpation, non-tender and no hepatosplenomegaly Palpation: soft and no hepatosplenomegaly Extremity Other: Chronic LE edema. Neuro Common normals: oriented x3, moves all extremities and no focal motor deficits Psych Common normals: mental status grossly normal, denies hallucinations, denies homicidal ideation and denies suicidal ideation Results Labs Labs: Short CBC 12/06/23 12/07/23 Range/Units 18:50 05:51 WBC 4.1 4.1 (4.0-11.0) 10^3/uL Hgb 8.4 L 7.2 L (12.0-16.0) g/dL Hct 27.4 L 23.7 L* (36.0-48.0) % Plt Count 205 173 (150-450) 10^3/uL BMP 12/06/23 12/07/23 18:50 05:51 Sodium 130 L 134 L Potassium 3.2 L 2.7 L* Chloride 95 L 98 Carbon Dioxide 28.7 27.6 BUN 16.0 14.0 Creatinine 1.13 H 1.07 H Glucose 93 89 Calcium 8.4 L 8.0 L Liver Function 12/06/23 12/07/23 Range/Units 18:50 05:51 Total Bilirubin 0.8 0.8 (0.2-1.0) mg/dL AST 13 L 13 L (15-37) U/L ALT 12 L 12 L (14-59) U/L Alkaline Phosphatase 132 H 105 (46-116) U/L Albumin 2.6 L 2.3 L (3.4-5.0) g/dL Assessment and Plan Assessment and Plan (1) Acute respiratory failure with hypoxia: Assessment and Plan: Pulse Ox as low as 78 % upon arrival. Doing well on 2 L O2 via NC. Due to acute on chronic diastolic HF. Wean off O2 as tolerated. C/w Lasix 40 mg IV q12 (2) Acute on chronic diastolic (congestive) heart failure: Assessment and Plan: Acute on chronic diastolic HF, Started on IV lasix. Monitor I/O, daily weights. Patient's most recent ECHO indicated pericardial effusion but normal LVEF. Will repeat ECHO to assess pericardial effusion. (3) Anemia: Assessment and Plan: Baseline Hb is about 8-9. Microcytic anemia likely due from underlying iron deficiency. She likely has occult GI blood loss. Patient is also on Eliquis for stroke px. Ordered iron profile. Recheck CBC. Start on Protonix IV 40 q12. Stop Eliquis for now. Monitor H&H Qualifiers: Anemia type: iron deficiency Iron deficiency anemia type: chronic blood loss Qualified Code(s): D50.0 - Iron deficiency anemia secondary to blood loss (chronic) (4) Hypokalemia: Assessment and Plan: Ordered PO and IV potassium Recheck at 4 pm Monitor closely while on lasix. (5) Fever determined by examination: Assessment and Plan: low grade fever noted on exam today. Check UA, COVID PCR. Monitor. (6) Hypothyroidism (acquired): Assessment and Plan: C/w levothyroxine. (7) Dementia: Assessment and Plan: Severe dementia, poor insight. Monitor closely Qualifiers: Dementia type: Alzheimer's Alzheimer's disease onset: unspecified onset Dementia severity: severe Dementia behavioral or psychological symptom: with mood disturbance Qualified Code(s): G30.9 - Alzheimer's disease, unspecified; F02.C3 - Dementia in other diseases classified elsewhere, severe, with mood disturbance (8) Hypertension: Assessment and Plan: At goal. Monitor. C/w Lopressor/aldactone. Qualifiers: Hypertension type: unspecified Qualified Code(s): I10 - Essential (primary) hypertension (9) Atrial fibrillation: Assessment and Plan: In parox Afib. Eliquis stopped for now due to possible GIB. Qualifiers: Atrial fibrillation type: persistent (not longstanding) Qualified Code(s): I48.19 - Other persistent atrial fibrillation (10) Chronic stasis dermatitis: Assessment and Plan: Local wound care. Monitor for ulcers/skin break down.
--- NOTE | 2023-12-07 10:52 | CA_ITS ---
Patient Name: SUJATA BERRIOS MR#: [id number] : 1940 Exam Date: 12/07/2023 Ordering Doctor: SHAIKH Christina MOLINA . ECHOCARDIOGRAM REPORT PROCEDURE: CA ECHO LIMITED INDICATIONS: Pericardial effusion/CHF COMPARISON: None. DESCRIPTION: Limited ECHOCARDIOGRAM Real-time transthoracic echocardiography with 2D and M-mode performed. QUALITY: Technical quality was good. LEFT VENTRICLE: Normal chamber size. Normal left ventricular wall thickness. LV EF: Global left ventricular systolic function is normal. Visual estimation of left ventricular ejection fraction is 55%. LEFT ATRIUM: Moderate dilatation. RIGHT ATRIUM: Severe dilatation. RIGHT VENTRICLE: Moderate dilatation. Decreased right ventricular systolic function. TRICUSPID VALVE: Normal mobility and thickness. MITRAL VALVE: Normal mobility and thickness. AORTIC VALVE: Normal trileaflet appearance. Normal leaflet mobility. AORTIC ROOT: Normal diameter and appearance. PULMONIC VALVE: Normal thickness and mobility. PERICARDIUM: Small anterior and moderate posterior pericardial effusion, no obvious signs of tamponade physiology. This is unchanged from previous exam of 06/11/23. IVC: Severe dilatation. Measuring 3.5cm with no collapse. CONCLUSION: 1. Global left ventricular systolic function is normal; visually estimated ejection fraction is 55 to 60% 2. The right ventricle is moderately dilated with reduced systolic function 3. Biatrial dilatation 4. There is a small anterior and moderate posterior pericardial effusion; no obvious signs of tamponade physiology A limited echocardiogram was performed Adult Echocardiography Procedure Report Left Ventricle LVEDD (3.7 - 5.6 cm): 4.80 cm LVESD (2.2 - 4.0 cm): 3.19 cm LVIVS thickness (0.6 - 1.2 cm): 0.94 cm LVPW thickness (0.5 - 1.0 cm): 0.93 cm LVOT Diameter 1.66 cm Left Ventricular Ejection Fraction: 57.79 % Left Atrium LA Volume Index (2D A2C): 45.43 ml/m2 Left Atrium Systolic Dimension: 4.64 cm Mitral Valve Right Ventricle RV Internal Diastolic Dimension: 4.04 cm, 3.95 cm Aorta AO Root Diam: 2.88 cm Ascending Ao Diam: 2.84 cm Aortic Valve Tricuspid Valve Pulmonic Valve Right Atrium Right Atrium Systolic Pressure: 97.23 ml, 97.23 ml Dictated by: Gretchen Giron M.D. on 12/07/2023 at 17:14 Approved by: Gretchen Giron M.D. on 12/07/2023 at 17:17
[2023-12-07 11:32] LABS: Basophils Percent Auto 0.5 % (0.2-2.0); Eosinophils Percent Auto 0.3 % (0.9-7.0); Hemoglobin 7.3 g/dL (12.0-16.0); Lymphocytes Absolute Auto 1.4 10^3/uL (1.2-3.8); Lymphocytes Percent Auto 34.5 % (20.5-60.0); Mean Corpuscular HGB Conc 30.7 g/dL (29.9-35.2); Mean Corpuscular Hemoglobin 21.3 pg (26.7-34.0); Mean Corpuscular Volume 69.6 fL (81.0-99.0); Mean Platelet Volume 9.9 fL (9.5-13.5); Monocytes Absolute Auto 0.8 10^3/uL (0.3-0.8); Monocytes Percent Auto 21.1 % (1.7-12.0); Neutrophils Absolute Auto 1.7 10^3/uL (1.4-6.5); Neutrophils Percent Auto 43.6 % (43.0-75.0); Platelet Count 163 10^3/uL (150-450); Red Blood Count 3.42 10^6/uL (4.20-5.40); Red Cell Distribution Width 20.7 % (11.0-15.0); White Blood Count 3.9 10^3/uL (4.0-11.0)
[2023-12-07 11:35] LABS: Hematocrit 23.8 % (36.0-48.0)
--- NOTE | 2023-12-07 11:44 | SWNOTE1 ---
Therapy did recommend SNF, SW to call and speak to pt's son.
[2023-12-07] MEDS: PANTOPRAZOLE SODIUM 40 MG VIAL IV ×2 (11:59→23:23)
[2023-12-07 12:18] LABS: Percent Iron Saturation 4.2 %
--- NOTE | 2023-12-07 13:16 | SWNOTE1 ---
ENIO called and spoke to pt's son, Cristino. Cristino lives in [place]. He voiced he was just up here over the 11 of November and pt was doing well at [facility]. She did finally agree to let them take her to dining area, as she had concerns about covid. He voiced she was doing well because she was getting out of her room versus just sitting by herself in the room. SW did let Cristino know that SNF is recommended at this time. Cristino did have medical questions, ENIO advised him that SW will let nursing know and have nurse call him back. At this time if pt can return to [place] once medically stable, then Cristino does prefer this. He stated if she gets moved from place to place it is confusing for pt and she has a hard time adjusting. SW to update Cristino tomorrow in regards to how pt is doing. Important Message from Medicare reviewed and discussed with patient's son, Cristino Pt's son verbalized understanding and ENIO signed the form with approval from son. Original placed in pt's room and copy placed on chart. ENIO sent message to nurse to have her call pt's son, Cristino. ENIO provided nurse with phone number as well.
--- NOTE | 2023-12-07 13:25 | SWNOTE1 ---
SW sent updates to [facility] and [facility]. Updates included face sheet, ED note, H&P, labs, vitals, nursing notes, PT/OT, diagnostic imaging, and med list.
[2023-12-07 16:11] LABS: Bilirubin Urine NEGATIVE (NEGATIVE); Blood Urine TRACE-I (NEGATIVE); Clarity Urine SL CLOUDY (CLEAR); Color Urine LT. YELLOW (YELLOW); Glucose Urine UA NEGATIVE (NEGATIVE); Ketones Urine NEGATIVE (NEGATIVE); Leukocyte Esterase Urine SMALL (NEGATIVE); Nitrite Urine NEGATIVE (NEGATIVE); Protein Urine NEGATIVE (NEG/TRACE); Urobilinogen Urine 0.2 EU/dL (0.2-1.0)
[2023-12-07 16:19] LABS: Anion Gap 6.3; BUN Creatinine Ratio 13.9; Calcium 7.7 mg/dL (8.5-10.1); Carbon Dioxide 29.7 mmol/L (21.0-32.0); Chloride 100 mmol/L (98-107); Estimated GFR (African America 58 (>=60); Estimated GFR (Non-African Ame 48 (>=60); Glucose 79 mg/dL (74-106); Sodium 133 mmol/L (136-145)
[2023-12-07 16:20] LABS: Bacteria Urine MODERATE #/HPF (NONE SEEN); Cast Seen? NONE SEEN #/LPF (NONE SEEN); Crystals Seen? None Seen #/HPF (None Seen); Mucus Urine NONE SEEN (NONE SEEN); Squamous Epithelial Cell Urine MODERATE #/LPF (NONE/RARE)
[2023-12-07 16:48] LABS: Internal Control Within Normal Limits; SARS-CoV-2 Ag POSITIVE (NEGATIVE)
[2023-12-07 17:49] LABS: ABG PCO2 43.4 mmHg (35.0-45.0); Base Excess ABG 5.1 mmol/L (-2.0-2.0); HCO3 ABG 29.3 mmol/L (22.0-26.0); Oxygen Saturation ABG 97.4 %; PO2 ABG 80.2 mmHg (80.0-100.0); pH ABG 7.438 (7.350-7.450)
[2023-12-07 17:50] LABS: Allen Test POSITIVE (POSITIVE); Liters per Minute 2; O2 Mode NC; Puncture Site R RADIAL
--- NOTE | 2023-12-07 18:22 | CT_ITS ---
The [address] [address] Patient Name: SUJATA BERRIOS MRN: [id number] date: 1940 Sex: F Assigned Patient Location: [place] Current Patient Location: [place] Accession/Order Number: [id number] Exam Date: 12/07/2023 07:05 Report Date: 12/07/2023 21:09 At the request of: SHAIKH TRACY Procedure: CT head/brain wo con EXAMINATION: CT head/brain wo con HISTORY: altered mental status COMPARISON: None. TECHNIQUE: CT head without contrast. Dose reduction techniques were achieved by using: automated exposure control and/or adjustment of mA and /or kV according to patient size and/or use of iterative reconstruction technique. FINDINGS: Small chronic infarct right parietal lobe. Negative for acute hemorrhage. Ventricles and sulci normal in size. No hydrocephalus. No midline shift, mass effect, pathologic extra-axial fluid collections. CT/CT head/brain wo con IMPRESSION: Negative for acute intracranial hemorrhage or acute intracranial process. Stable small chronic infarct in the right parietal lobe. Electronically authenticated by: DIANA MILAN Date: 12/07/2023 21:09
[2023-12-07 18:48] LABS: Ammonia 29 umol/L (11-32)
[2023-12-08] VITALS (22 sets, daily range): BP systolic 107–126; BP diastolic 67–81; PULSE 87–114; TEMP 36.6–36.8; O2SAT 92–98
[2023-12-08 01:33] LABS: Bilirubin Urine NEGATIVE (NEGATIVE); Blood Urine SMALL (NEGATIVE); Clarity Urine CLEAR (CLEAR); Color Urine LT. YELLOW (YELLOW); Glucose Urine UA NEGATIVE (NEGATIVE); Ketones Urine NEGATIVE (NEGATIVE); Leukocyte Esterase Urine NEGATIVE (NEGATIVE); Nitrite Urine NEGATIVE (NEGATIVE); Protein Urine NEGATIVE (NEG/TRACE); Specific Gravity Urine <=1.005 (1.005-1.025); Urobilinogen Urine 0.2 EU/dL (0.2-1.0)
[2023-12-08 01:39] LABS: Amorphous Sediment Urine MANY; Bacteria Urine NONE SEEN #/HPF (NONE SEEN); Crystals Seen? None Seen #/HPF (None Seen); Mucus Urine NONE SEEN (NONE SEEN); RBC Urine 0-2 #/HPF (0-2); Squamous Epithelial Cell Urine NONE SEEN #/LPF (NONE/RARE); WBC Urine 0-2 #/HPF (NONE SEEN)
[2023-12-08 01:40] LABS: Cast Seen? NONE SEEN #/LPF (NONE SEEN); Urine Culture Indicated NO
--- NOTE | 2023-12-08 02:02 | PC.NURSE ---
left lateral lower leg weeping
--- NOTE | 2023-12-08 02:05 | PC.NURSE ---
Right posterior upper leg
[2023-12-08 05:08] LABS: Transferrin 217 mg/dL (149-313)
[2023-12-08] MEDS: LEVOTHYROXINE SODIUM 25 MCG TABLET PO (05:56)
[2023-12-08 06:24] LABS: Basophils Percent Auto 0.8 % (0.2-2.0); Eosinophils Percent Auto 0.6 % (0.9-7.0); Hematocrit 29.2 % (36.0-48.0); Hemoglobin 8.9 g/dL (12.0-16.0); Immature Granulocytes Abs Auto 0.01 10^3/uL (0.00-0.03); Immature Granulocytes Pct Auto 0.2 % (0.0-0.5); Lymphocytes Absolute Auto 1.6 10^3/uL (1.2-3.8); Lymphocytes Percent Auto 33.8 % (20.5-60.0); Mean Corpuscular HGB Conc 30.5 g/dL (29.9-35.2); Mean Corpuscular Hemoglobin 22.3 pg (26.7-34.0); Mean Corpuscular Volume 73.2 fL (81.0-99.0); Mean Platelet Volume 9.8 fL (9.5-13.5); Monocytes Absolute Auto 0.8 10^3/uL (0.3-0.8); Monocytes Percent Auto 16.9 % (1.7-12.0); Neutrophils Absolute Auto 2.3 10^3/uL (1.4-6.5); Neutrophils Percent Auto 47.7 % (43.0-75.0); Platelet Count 172 10^3/uL (150-450); Red Blood Count 3.99 10^6/uL (4.20-5.40); Red Cell Distribution Width 21.6 % (11.0-15.0); White Blood Count 4.7 10^3/uL (4.0-11.0)
[2023-12-08 06:44] LABS: Alanine Aminotransferase 10 U/L (14-59); Albumin Globulin Ratio 0.5; Albumin Level 2.3 g/dL (3.4-5.0); Alkaline Phosphatase 107 U/L (46-116); Anion Gap 7.7; Aspartate Amino Transferase 16 U/L (15-37); Bilirubin Total 1.3 mg/dL (0.2-1.0); Calcium 8.3 mg/dL (8.5-10.1); Carbon Dioxide 29.6 mmol/L (21.0-32.0); Chloride 100 mmol/L (98-107); Estimated GFR (African America >60 (>=60); Estimated GFR (Non-African Ame 57 (>=60); Globulin 4.3 g/dL; Glucose 69 mg/dL (74-106); Potassium 3.3 mmol/L (3.5-5.1); Sodium 134 mmol/L (136-145); Total Protein 6.6 g/dL (6.4-8.2)
[2023-12-08 07:44] LABS: Glucometer 144 mg/dL (74-106)
--- NOTE | 2023-12-08 10:51 | CM.NOTE ---
Rounds made with Dr. Murillo. Dr. Murillo to add Lasix and continue with previous plan of care. No plan for discharge today.
--- NOTE | 2023-12-08 11:26 | REH.PTDLY ---
Physical Therapy Daily Note PT Daily Note/Assess Start: 12/08/23 11:17 Freq: Status: Active Protocol: Document 12/08/23 11:17 DEMETRIUSKARTIK (Rec: 12/08/23 11:26 [facility] [id number]) Physical Therapy Daily Note/Assessment Time In 09:45 Time Out 10:20 Subjective Pt awake upon arrival. Pt covid positive. Utilized white board to communicate with pt as she is hard of hearing and cannot communicate well. Nursing reports this is the first pt has been awake when she enters room. Therapeutic Exercise Minutes (minutes) 9 Therapeutic Exercise Units 1 Therapeutic Exercise Treatment Instructed in B LE supine exs AA 10x ea for mobility/ strength. Exs included active AP, AA heels sides, hip abd slides, SLR and QS. Several tactile cues needed for understanding and demo. Therapeutic Activity Minutes (minutes) 14 Therapeutic Activity Units 1 Therapeutic Activity Comments Mod A x2 with sitting upright in bed for to listen to patients lungs. Mod A with supine to sit transfer to EOB. Cues needed for seated balance. Cues for sit to stand transfers with RW in front of pt. Pt mod A x2, but once pt understands what she is to do she becomes CGA ambulating to sit in chair. Pt stands without holding onto RW CGA as well with no LOB noted. Pt sits up in chair with chair alarm on for safety and nurse brings breakfast in. Total Therapy Minutes 23 Total Physical Therapy Units 2 Daily Note Summary Communication barrier with pt being hard of hearing is what limits pts ability to perform therapy. Pt did well with transfer once she knew what she was to do. Hard to know pt 's current physical capabilities due to this.
--- NOTE | 2023-12-08 11:45 | PM.IMPN1 ---
Progress Note: A&P Assessment and Plan (1) Acute respiratory failure with hypoxia: Assessment and Plan: Still hypoxic and needing O2 supplementation. No evidence of resp distress. Monitor closely. Wean off O2 as tolerated. (2) COVID-19: Assessment and Plan: tested positive for COVID Was febrile yesterday. Has SOB and hypoxia. Will order decadron and albuterol for patient. (3) Acute on chronic diastolic (congestive) heart failure: Assessment and Plan: Volume overload on exam. Persistent pericardial effusion on ECHO. C/w IV lasix 40 Q12. Monitor I/O , daily weights. Cardiology consulted. No evidence of tamponade Repeat CXR, BNP (4) AMS (altered mental status): Assessment and Plan: back to baseline now. Was somnolent and very difficult to arouse. Normal ABG, Ammonia. No acute finding on CTH Likely multifactorial and due to dementia, acute illness, hypoxia. Now back to her baseline. Qualifiers: Altered mental status type: somnolence Qualified Code(s): R40.0 - Somnolence (5) Anemia: Assessment and Plan: Likely due to occult GI bleeding. Eliquis on hold. On IV protonix. Received one unit PRBC. Hb stable., No evidence of overt bleeding. Given her age, risk of bleeding, she is probably not a good candidate for anticoagulation. Qualifiers: Anemia type: iron deficiency Iron deficiency anemia type: chronic blood loss Qualified Code(s): D50.0 - Iron deficiency anemia secondary to blood loss (chronic) (6) Hypokalemia: Assessment and Plan: monitor, replete as needed. (7) Fever determined by examination: Assessment and Plan: Afebrile now. Work up revealed positive COVID -19 PCR. tylenol as needed for fever. (8) Hypothyroidism (acquired): Assessment and Plan: C/w levothyroxine. (9) Dementia: Assessment and Plan: At her baseline now. Monitor Qualifiers: Dementia type: Alzheimer's Alzheimer's disease onset: unspecified onset Dementia severity: severe Dementia behavioral or psychological symptom: with mood disturbance Qualified Code(s): G30.9 - Alzheimer's disease, unspecified; F02.C3 - Dementia in other diseases classified elsewhere, severe, with mood disturbance (10) Hypertension: Assessment and Plan: C/w home medications. She was borderline hypotensive yesterday. but BP is better now. Qualifiers: Hypertension type: unspecified Qualified Code(s): I10 - Essential (primary) hypertension (11) Atrial fibrillation: Assessment and Plan: IN NSR. Monitor. Jermain on hodl for now. Qualifiers: Atrial fibrillation type: persistent (not longstanding) Qualified Code(s): I48.19 - Other persistent atrial fibrillation (12) Chronic stasis dermatitis: Assessment and Plan: Wound consult Internal Medicine - PN: Subj Subjective Interval history: Seen and examined. Awake and alert. Need to write to communicate with her as she is very hard of hearing. No apparent distress but reports mild shortness of breath that has improved from before. Exam Constitutional Vital Signs, click to edit/add: Last Vital Signs Temp 98.3 F 12/08/23 06:00 Pulse 112 H 12/08/23 09:49 Resp 16 12/08/23 08:00 BP 107/67 12/08/23 06:00 Pulse Ox 92 L 12/08/23 11:19 O2 Del Method Nasal Cannula 12/08/23 11:19 O2 Flow Rate 2 12/08/23 11:19 Documenting provider has reviewed patient's vital signs: yes General appearance: cooperative, comfortable, ill appearing and frail appearing Nutritional appearance: obese HENMT Common normals: normocephalic and head/scalp atraumatic Respiratory Common normals: normal respiratory effort and no use of accessory muscles Effort & inspection: able to speak in complete sentences Auscultation: diminished lung sounds Cardio Common normals: no JVD, regular rhythm, S1 normal heart sound and S2 normal heart sound Rate: tachycardic GI Common normals: Normal to inspection, nondistended, normoactive bowel sounds present, soft to palpation, non-tender and no hepatosplenomegaly Extremity Other: Chronic venous stasis, LE edema. Neuro Common normals: oriented x3, no focal motor deficits and no sensory deficits noted Other: Intermittently confused. Psych Common normals: denies homicidal ideation and denies suicidal ideation Internal Medicine - PN: Obj Da Labs Labs: Laboratory Results - last 24 hr 12/07/23 12/07/23 12/07/23 11:00 15:58 15:59 WBC RBC Hgb Hct MCV MCH MCHC RDW Plt Count MPV Neut % (Auto) Lymph % (Auto) [place] % (Auto) Eos % (Auto) Baso % (Auto) Neut # (Auto) Lymph # (Auto) [place] # (Auto) Eos # (Auto) Baso # (Auto) Abs Immat Gran (auto) Imm/Tot Granulo (auto) Puncture Site ABG pH ABG pCO2 ABG pO2 ABG HCO3 ABG O2 Saturation ABG Base Excess Myles Test O2 Liters/Min Sodium 133 L Potassium 3.0 L Chloride 100 Carbon Dioxide 29.7 Anion Gap 6.3 BUN 15.0 Creatinine 1.08 H Est GFR ( Amer) 58 L Est GFR (Non-Af Amer) 48 L BUN/Creatinine Ratio 13.9 Glucose 79 Calcium 7.7 L Iron 10.0 L TIBC 239.0 L % Saturation 4.2 Transferrin 217 Ferritin 21.0 Total Bilirubin AST ALT Alkaline Phosphatase Ammonia Total Protein Albumin Globulin Albumin/Globulin Ratio Vitamin B12 430.0 Folate 16.10 Urine Color Lt. yellow Urine Clarity Sl cloudy Urine pH 6.0 Ur Specific [place] 1.010 Urine Protein Negative Urine Glucose (UA) Negative Urine Ketones Negative Urine Occult Blood Trace-i Urine Nitrite Negative Urine Bilirubin Negative Urine Urobilinogen 0.2 Ur Leukocyte Esterase Small A Urine RBC 2-5 A Urine WBC 2-5 A Ur Squamous Epith Cells Moderate A Urine Crystals None seen Amorphous Sediment Urine Bacteria Moderate A Urine Casts None seen Urine Mucus None seen Urine Yeast Seen A Ur Culture Indicated? SARS-CoV-2 Ag (CV2AG) Positive A POC Glucose Blood Type O Positive Antibody Screen Negative Crossmatch See Detail 12/07/23 12/07/23 12/08/23 17:40 18:32 01:00 WBC RBC Hgb Hct MCV MCH MCHC RDW Plt Count MPV Neut % (Auto) Lymph % (Auto) [place] % (Auto) Eos % (Auto) Baso % (Auto) Neut # (Auto) Lymph # (Auto) [place] # (Auto) Eos # (Auto) Baso # (Auto) Abs Immat Gran (auto) Imm/Tot Granulo (auto) Puncture Site R radial ABG pH 7.438 ABG pCO2 43.4 ABG pO2 80.2 ABG HCO3 29.3 H ABG O2 Saturation 97.4 ABG Base Excess 5.1 H Myles Test Positive O2 Liters/Min 2 Sodium Potassium Chloride Carbon Dioxide Anion Gap BUN Creatinine Est GFR ( Amer) Est GFR (Non-Af Amer) BUN/Creatinine Ratio Glucose Calcium Iron TIBC % Saturation Transferrin Ferritin Total Bilirubin AST ALT Alkaline Phosphatase Ammonia 29 Total Protein Albumin Globulin Albumin/Globulin Ratio Vitamin B12 Folate Urine Color Lt. yellow Urine Clarity Clear Urine pH 6.0 Ur Specific [place] <=1.005 A Urine Protein Negative Urine Glucose (UA) Negative Urine Ketones Negative Urine Occult Blood Small A Urine Nitrite Negative Urine Bilirubin Negative Urine Urobilinogen 0.2 Ur Leukocyte Esterase Negative Urine RBC 0-2 Urine WBC 0-2 A Ur Squamous Epith Cells None seen Urine Crystals None seen Amorphous Sediment Many Urine Bacteria None seen Urine Casts None seen Urine Mucus None seen Urine Yeast Ur Culture Indicated? No SARS-CoV-2 Ag (CV2AG) POC Glucose Blood Type Antibody Screen Crossmatch 12/08/23 12/08/23 05:59 07:44 WBC 4.7 RBC 3.99 L Hgb 8.9 L Hct 29.2 L MCV 73.2 L MCH 22.3 L MCHC 30.5 RDW 21.6 H Plt Count 172 MPV 9.8 Neut % (Auto) 47.7 Lymph % (Auto) 33.8 [place] % (Auto) 16.9 H Eos % (Auto) 0.6 L Baso % (Auto) 0.8 Neut # (Auto) 2.3 Lymph # (Auto) 1.6 [place] # (Auto) 0.8 Eos # (Auto) 0.0 Baso # (Auto) 0.0 Abs Immat Gran (auto) 0.01 Imm/Tot Granulo (auto) 0.2 Puncture Site ABG pH ABG pCO2 ABG pO2 ABG HCO3 ABG O2 Saturation ABG Base Excess Myles Test O2 Liters/Min Sodium 134 L Potassium 3.3 L Chloride 100 Carbon Dioxide 29.6 Anion Gap 7.7 BUN 15.0 Creatinine 0.94 Est GFR ( Amer) >60 Est GFR (Non-Af Amer) 57 L BUN/Creatinine Ratio 16.0 Glucose 69 L Calcium 8.3 L Iron TIBC % Saturation Transferrin Ferritin Total Bilirubin 1.3 H AST 16 ALT 10 L Alkaline Phosphatase 107 Ammonia Total Protein 6.6 Albumin 2.3 L Globulin 4.3 Albumin/Globulin Ratio 0.5 Vitamin B12 Folate Urine Color Urine Clarity Urine pH Ur Specific [place] Urine Protein Urine Glucose (UA) Urine Ketones Urine Occult Blood Urine Nitrite Urine Bilirubin Urine Urobilinogen Ur Leukocyte Esterase Urine RBC Urine WBC Ur Squamous Epith Cells Urine Crystals Amorphous Sediment Urine Bacteria Urine Casts Urine Mucus Urine Yeast Ur Culture Indicated? SARS-CoV-2 Ag (CV2AG) POC Glucose 144 H Blood Type Antibody Screen Crossmatch Urinary Catheter Management Urinary Catheter Management Straight: Cath placed during this visit: no
--- NOTE | 2023-12-08 11:48 | XR_ITS ---
The [address] [address] Patient Name: SUJATA BERRIOS MRN: [id number] date: 1940 Sex: F Assigned Patient Location: [place] Current Patient Location: [place] Accession/Order Number: [id number] Exam Date: 12/08/2023 12:00 Report Date: 12/08/2023 12:16 At the request of: SHAIKH TRACY Procedure: XR chest 1V EXAM: XR chest 1V HISTORY: Congestive heart failure COMPARISON: 12/06/2023 TECHNIQUE: AP portable FINDINGS: LUNGS: Low lung volumes. Moderate left basilar infiltrate obscures the hemidiaphragm and partially obscures the heart border VASCULATURE: Mildly increased pulmonary vasculature. PLEURA: No pneumothorax. Likely left pleural effusion CARDIAC: Moderate stable cardiomegaly. MEDIASTINUM: No visible mass or adenopathy. BONES: Severe left glenohumeral osteoarthritis OTHER: Negative. XR/XR chest 1V IMPRESSION: Left basilar infiltrate and pleural effusion with mild pulmonary vascular congestion. Consider congestive heart failure versus left lower lobe pneumonia Electronically authenticated by: CAITIE WILLIAMSON Date: 12/08/2023 12:16
[2023-12-08] MEDS: CHOLECALCIFEROL (VITAMIN D3) 25 MCG/1,000 UNITS TABLET 50 MCG PO (12:48)
[2023-12-08] MEDS: PANTOPRAZOLE SODIUM 40 MG VIAL IV ×2 (12:49→22:51)
[2023-12-08] MEDS: CITALOPRAM HYDROBROMIDE 20 MG TABLET PO (12:49)
[2023-12-08] MEDS: FUROSEMIDE 40 MG/4 ML VIAL IVP ×2 (13:02→22:51)
[2023-12-08] MEDS: DEXAMETHASONE 4 MG TABLET 6 MG PO (13:07)
--- NOTE | 2023-12-08 13:07 | SWNOTE1 ---
ENIO called [facility] and let them know pt is covid positive. ENIO also sent updates to [facility] [place]. Updates included progress note, labs, vitals, ECHO, diagnostic imaging, med list, and PT note.
--- NOTE | 2023-12-08 15:30 | P.CACN_ITS ---
<Statement entered by DRE VARNER - 12/09/23 17:42> This documentation has been reviewed and approved. History of Present Illness History of Present Illness Consult date: 12/08/23 Requesting physician: Shaikh Chidi Chief complaint: SOB; CHF Narrative: Patient is a 83 y/o F with known PMHx of dementia, pericardial effusion, TR, hypothyroidism, CVA, HTN, persistent long-standing a.fib, mild LV dysfunction, pulmonary HTN who presented to [facility] from her correction with c/o SOB and worsening leg edema. She is a known patient with [facility], Dr. Barker. Patient was found to have acute respiratory failure, acute on chroni c HFpEF, and anemia. Cardiology has been consulted to help with management of her a.fib. She hasn't been getting her metoprolol due to hypotension. She had a limited ECHO done yesterday which showed her pericardial effusion to be small to moderate, no evidence of tamponade physiology - unchanged from her prior ECHO from 06/2023. Her BNP on admission was 4500. Patient seen and examined at bedside this afternoon. She was sitting up in the chair, awake/alert during exam. She is pleasantly confused. Unable to get an accurate history from her. Review of telemetry shows her HR in the 120s. Review of Systems ROS Status of ROS unobtainable due to mental status [facility] Medical History (Updated 12/08/23 @ 11:55 by Shaikh Chidi MD) Dementia ?F03.90 - Unspecified dementia, unspecified severity, without behavioral disturbance, psychotic disturbance, mood disturbance, and anxiety (ICD-10) Pericardial effusion without cardiac tamponade ?I31.39 - Other pericardial effusion (noninflammatory) (ICD-10) Tricuspid valve regurgitation, nonrheumatic ?I36.1 - Nonrheumatic tricuspid (valve) insufficiency (ICD-10) Right heart failure ?I50.810 - Right heart failure, unspecified (ICD-10) Hypoxia ?R09.02 - Hypoxemia (ICD-10) Acute congestive heart failure ?I50.9 - Heart failure, unspecified (ICD-10) Pleural effusion ?J90 - Pleural effusion, not elsewhere classified (ICD-10) Congestive heart failure ?I50.9 - Heart failure, unspecified (ICD-10) Hypothyroidism (acquired) ?E03.9 - Hypothyroidism, unspecified (ICD-10) CVA (cerebral vascular accident) ?I63.9 - Cerebral infarction, unspecified (ICD-10) Hypertension ?I10 - Essential (primary) hypertension (ICD-10) Atrial fibrillation ?I48.91 - Unspecified atrial fibrillation (ICD-10) Surgical History H/O bilateral hip replacements ?Z96.643 - Presence of artificial hip joint, bilateral (ICD-10) History of bilateral knee replacement ?Z96.653 - Presence of artificial knee joint, bilateral (ICD-10) Family History Father Family history of myocardial infarction Family history of hypertension Mother Family history of myocardial infarction Family history of hypertension Social History (Updated 12/06/23 @ 22:34 by Arlette Costa) Within the past year, how often did you have a drink containing alcohol: 2-3 times a week Smoking status: Never smoker Non-prescribed substance use: denies use Previous occupational history: retired Highest level of school completed/degree received: 11th grade Little interest or pleasure in doing things: not at all Feeling down, depressed, or hopeless: not at all Feel stressed/tense/nervous/anxious/difficulty sleeping: not at all Meds Home Medications and Allergies Home Medications ?Medication ?Instructions ?Recorded ?Confirmed ?Type apixaban 5 mg tablet (Eliquis) 5 mg PO Q12H 06/11/23 12/06/23 History citalopram 20 mg tablet 20 mg PO DAILY 06/11/23 12/06/23 History furosemide 40 mg tablet 40 mg PO Q12H 06/11/23 12/06/23 History levothyroxine 25 mcg tablet 25 mcg PO DAILY 06/11/23 12/06/23 History losartan 25 mg tablet 25 mg PO DAILY 06/11/23 12/06/23 History magnesium oxide 400 mg PO .qod 06/11/23 12/06/23 History melatonin 5 mg capsule 5 mg PO QPM 06/11/23 12/06/23 History metoprolol tartrate 25 mg tablet 25 mg PO TID 06/11/23 12/06/23 History quetiapine 25 mg tablet 25 mg PO DAILY 06/11/23 12/06/23 History quetiapine 25 mg tablet (Seroquel) 50 mg PO QPM 06/11/23 12/06/23 History acetaminophen 500 mg capsule 500 mg PO .q8 PRN pain 12/06/23 12/06/23 History brimonidine 0.025 % eye drops 1 drp ophthalmic (eye) BID 12/06/23 12/06/23 History cholecalciferol (vitamin D3) 50 50 mcg PO DAILY 12/06/23 12/06/23 History mcg (2,000 unit) capsule (Vitamin D3) cyanocobalamin (vitamin B-12) 100 100 mcg PO DAILY 12/06/23 12/06/23 History mcg tablet (Vitamin B-12) furosemide 40 mg tablet (Lasix) 40 mg PO DAILY PRN edema 12/06/23 12/06/23 History spironolactone 25 mg tablet 25 mg PO DAILY 12/06/23 12/06/23 History Allergies Allergy/AdvReac Type Severity Reaction Status Date / Time cephalexin [From Keflex] Allergy Mild Rash Verified 12/06/23 19:14 potassium chloride Allergy Mild Rash Verified 12/06/23 19:14 Lheenrl-JWY-WwW Reductase Allergy Mild Abdominal Verified 12/06/23 19:14 Inhibitor Pain black pepper Allergy Unknown Rash Verified 12/06/23 19:14 Exam Constitutional Vital Signs, click to edit/add: Last Vital Signs Temp 97.9 F 12/08/23 13:10 Pulse 107 H 12/08/23 13:10 Resp 16 12/08/23 13:10 BP 120/81 12/08/23 13:10 Pulse Ox 98 12/08/23 13:10 O2 Del Method Nasal Cannula 12/08/23 13:10 O2 Flow Rate 2 12/08/23 13:10 Common normals: no apparent distress Exam limitations: altered mental status Orientation/consciousness: Yes awake and Yes confused HENMT Common normals: normocephalic and head/scalp atraumatic General ear: hearing grossly impaired Eye Common normals: EOMs intact bilaterally and conjunctivae normal Neck & C-Spine Common normals: full ROM and supple Respiratory Common normals: normal respiratory effort and no use of accessory muscles Auscultation: diminished lung sounds Cardio Common normals: S1 normal heart sound and S2 normal heart sound Rate: tachycardic Rhythm: abnormal rhythm irregularly irregular GI Common normals: Normal to inspection, nondistended, normoactive bowel sounds present Extremity Common normals: full ROM General: edema (+2 BLE edema ) Neuro Sensorium/orientation: awake and alert Results Labs and Meds Lab results: Cardiac Enzymes 12/08/23 Range/Units 05:59 AST 16 (15-37) U/L CBC 12/08/23 Range/Units 05:59 WBC 4.7 (4.0-11.0) 10^3/uL RBC 3.99 L (4.20-5.40) 10^6/uL Hgb 8.9 L (12.0-16.0) g/dL Hct 29.2 L (36.0-48.0) % Plt Count 172 (150-450) 10^3/uL Neut # (Auto) 2.3 (1.4-6.5) 10^3/uL Lymph # (Auto) 1.6 (1.2-3.8) 10^3/uL [place] # (Auto) 0.8 (0.3-0.8) 10^3/uL Eos # (Auto) 0.0 (0.0-0.7) 10^3/uL Baso # (Auto) 0.0 (0.0-0.1) 10^3/uL Comprehensive Metabolic Panel 12/07/23 12/08/23 Range/Units 15:58 05:59 Sodium 133 L 134 L (136-145) mmol/L Potassium 3.0 L 3.3 L (3.5-5.1) mmol/L Chloride 100 100 (98-107) mmol/L Carbon Dioxide 29.7 29.6 (21.0-32.0) mmol/L BUN 15.0 15.0 (7.0-18.0) mg/dL Creatinine 1.08 H 0.94 (0.55-1.02) mg/dL Glucose 79 69 L (74-106) mg/dL Calcium 7.7 L 8.3 L (8.5-10.1) mg/dL AST 16 (15-37) U/L ALT 10 L (14-59) U/L Alkaline Phosphatase 107 (46-116) U/L Total Protein 6.6 (6.4-8.2) g/dL Albumin 2.3 L (3.4-5.0) g/dL Intake and Output 12/07/23 12/08/23 12/08/23 23:59 07:59 15:59 Intake Total 600 / 1070 200 / 1070 Output Total 800 / 1700 900 / 1700 Balance -200 / -630 -700 / -630 Intake: Oral 200 / 200 Blood Product 350 / 350 Leukocyte Reduced Rbc Unit 350 / 350 [id number] Other 250 / 250 Leukocyte Reduced Rbc Unit 250 / 250 [id number] Output: Urine 800 / 1100 300 / 1100 Urine Amount (Catheter) 600 / 600 Straight 600 / 600 Other: Weight 70.9 kg Imaging and Cardiology Echo: report reviewed (12/06/23: preserved LVEF, small to moderate pericardial effusion with no evidence of tamponade physiology - no change from previous ECHO from 06/2023, severely dilated IVC) ECG results: image reviewed (A.fib, IVCD - not new) Assessment and Plan Assessment and Plan (1) Acute respiratory failure with hypoxia: (2) COVID-19: (3) Acute on chronic diastolic (congestive) heart failure: (4) AMS (altered mental status): Qualifiers: Altered mental status type: somnolence Qualified Code(s): R40.0 - Somnolence (5) Anemia: Qualifiers: Anemia type: iron deficiency Iron deficiency anemia type: chronic blood loss Qualified Code(s): D50.0 - Iron deficiency anemia secondary to blood loss (chronic) (6) Hypokalemia: (7) Fever determined by examination: (8) Hypothyroidism (acquired): (9) Dementia: Qualifiers: Dementia type: Alzheimer's Alzheimer's disease onset: unspecified onset Dementia severity: severe Dementia behavioral or psychological symptom: with mood disturbance Qualified Code(s): G30.9 - Alzheimer's disease, unspecified; F02.C3 - Dementia in other diseases classified elsewhere, severe, with mood disturbance (10) Hypertension: Qualifiers: Hypertension type: unspecified Qualified Code(s): I10 - Essential (primary) hypertension (11) Atrial fibrillation: Qualifiers: Atrial fibrillation type: persistent (not longstanding) Qualified Code(s): I48.19 - Other persistent atrial fibrillation (12) Chronic stasis dermatitis: Plan #Persistent a.fib -HR is averaging 90s-110s. RVR is like due to her acute COVID infection, respiratory failure, and heart failure exacerbation. -Will order for PRN IVP metoprolol 5mg q6hrs for sustained HR >120. -Resume her oral metoprolol when her BP allows. -Consider digoxin if her HR sustains >120 and metoprolol isn't helping. -Agree with holding Eliquis while investigating for causes of anemia. #Acute on chronic HFpEF -She remains fluid overloaded on exam along with signs of fluid overload on her ECHO yesterday. -Continue to diures as tolerated, agree with IVP lasix 40mg BID. -Monitor daily weights, maintain 1.5L fluid restriction, low Na+ diet, strict I/Os. -Maintain K >4 and mag >2. -Resume home Aldactone, possibly tomorrow, if BP remains stable. This will also help with her hypokalemia. #Hypertension -Issues with low. Resume home losartan when able. Patient to follow-up with her primary skin specialist in 1 week after discharge. Thank you for the consult. Please let us know if any further questions or concerns. Dana Gonzales APRN-VISION TEACHER
--- NOTE | 2023-12-08 15:39 | OT.DAILY ---
Occupational Therapy Daily Note OT Inpatient Daily Visit Note Start: 12/07/23 09:51 Freq: Status: Active Protocol: Document 12/08/23 15:38 [id number] (Rec: 12/08/23 15:39 [id number]) Visit Not Completed Visit Not Completed Visit Not Completed Due to: Pt level of alertness Other Reason Visit Not Completed Pt alert to self only. Can not confirm the date, time, or location. When asked Pt notes the month is August. When asked to participate or complete self care tasks Pt became agitated and started screaming demands to be left alone. Pt states I just cant' right now . Hard of hearing. She is requesting new tea. Slightly tearful. Pt left in recliner chair, call light within reach . Will continue to make attempts. OT Visit Details Time In/Time Out Time In 03:30 Time Out 03:38 GG. Functional Abilities and Goals-Complete for Swing Bed Patients Only [id number]. Self-Care [id number]. Mobility
[2023-12-08] MEDS: ALBUTEROL SULFATE 200 PUFF/6.7 GM INHALER IH ×2 (15:43→23:27)
[2023-12-08] MEDS: ACETAMINOPHEN 325 MG TABLET 650 MG PO (16:25)
[2023-12-08] MEDS: METOPROLOL TARTRATE 25 MG TABLET PO (22:51)
[2023-12-09] VITALS (14 sets, daily range): BP systolic 117–122; BP diastolic 62–74; PULSE 73–96; TEMP 36–36.9; O2SAT 91–95
[2023-12-09] MEDS: ALBUTEROL SULFATE 200 PUFF/6.7 GM INHALER IH ×3 (04:10→16:05)
[2023-12-09] MEDS: METOPROLOL TARTRATE 25 MG TABLET PO ×3 (05:09→20:03)
[2023-12-09] MEDS: LEVOTHYROXINE SODIUM 25 MCG TABLET PO (05:40)
[2023-12-09 06:17] LABS: Basophils Percent Auto 0.3 % (0.2-2.0); Hematocrit 30.7 % (36.0-48.0); Hemoglobin 9.4 g/dL (12.0-16.0); Immature Granulocytes Abs Auto 0.01 10^3/uL (0.00-0.03); Immature Granulocytes Pct Auto 0.3 % (0.0-0.5); Lymphocytes Percent Auto 29.1 % (20.5-60.0); Mean Corpuscular HGB Conc 30.6 g/dL (29.9-35.2); Mean Corpuscular Hemoglobin 22.2 pg (26.7-34.0); Mean Corpuscular Volume 72.6 fL (81.0-99.0); Mean Platelet Volume 9.8 fL (9.5-13.5); Monocytes Absolute Auto 0.3 10^3/uL (0.3-0.8); Monocytes Percent Auto 9.8 % (1.7-12.0); Neutrophils Absolute Auto 2.1 10^3/uL (1.4-6.5); Neutrophils Percent Auto 60.5 % (43.0-75.0); Platelet Count 190 10^3/uL (150-450); Red Blood Count 4.23 10^6/uL (4.20-5.40); Red Cell Distribution Width 22.3 % (11.0-15.0); White Blood Count 3.5 10^3/uL (4.0-11.0)
[2023-12-09 06:28] LABS: Alanine Aminotransferase 13 U/L (14-59); Albumin Globulin Ratio 0.5; Albumin Level 2.3 g/dL (3.4-5.0); Alkaline Phosphatase 115 U/L (46-116); Anion Gap 10.6; Aspartate Amino Transferase 19 U/L (15-37); BUN Creatinine Ratio 13.1; Bilirubin Total 0.8 mg/dL (0.2-1.0); Calcium 8.1 mg/dL (8.5-10.1); Carbon Dioxide 31.7 mmol/L (21.0-32.0); Chloride 101 mmol/L (98-107); Estimated GFR (African America >60 (>=60); Estimated GFR (Non-African Ame 53 (>=60); Globulin 4.6 g/dL; Glucose 148 mg/dL (74-106); Potassium 3.3 mmol/L (3.5-5.1); Sodium 140 mmol/L (136-145); Total Protein 6.9 g/dL (6.4-8.2)
[2023-12-09] MEDS: CITALOPRAM HYDROBROMIDE 20 MG TABLET PO (08:23)
[2023-12-09] MEDS: LOSARTAN POTASSIUM 25 MG TABLET PO (08:23)
[2023-12-09] MEDS: SPIRONOLACTONE 25 MG TABLET PO (08:23)
[2023-12-09] MEDS: POTASSIUM CHLORIDE 10 MEQ ER TABLET 40 MEQ PO (08:23)
[2023-12-09] MEDS: DEXAMETHASONE 4 MG TABLET 6 MG PO (08:24)
[2023-12-09] MEDS: OMEPRAZOLE 40 MG CAPSULE.DR PO ×2 (08:24→20:03)
[2023-12-09] MEDS: CHOLECALCIFEROL (VITAMIN D3) 25 MCG/1,000 UNITS TABLET 50 MCG PO (08:24)
[2023-12-09] MEDS: LEVOFLOXACIN 750 MG TABLET PO (08:24)
[2023-12-09] MEDS: MAGNESIUM OXIDE 400 MG TABLET PO (08:24)
--- NOTE | 2023-12-09 09:02 | REH.PTDLY ---
Physical Therapy Daily Note PT Daily Note/Assess Start: 12/08/23 11:17 Freq: Status: Active Protocol: Document 12/09/23 08:54 JOHANNE (Rec: 12/09/23 09:02 JOHANNE [id number]) Physical Therapy Daily Note/Assessment Time In 08:13 Time Out 08:41 Subjective Pt reports the back of L LE is painful. Pt hard of hearing and needs to use white board at times to communicate or speak into R ear loudly. Therapeutic Exercise Minutes (minutes) 9 Therapeutic Exercise Units 1 Therapeutic Exercise Treatment Instructed in supine SLR 4x ea leg. Seated B LE exs 10-15x ea with LAQ, marching, and hip abd slides for improved strength and mobility. Demo needed for understanding Therapeutic Activity Minutes (minutes) 15 Therapeutic Activity Units 1 Bed Mobility Ability Minimum Assist Chair Transfer Ability Contact Guard Assist Therapeutic Activity Comments Pt requires verbal and tactile cues for hand placement and tactile cues to move legs to side of bed. Pt reports breaking R hand and it is very sensitive to the touch. Pt able to sit upright at side of bed, but needs Min A to scoot forward so feet are touching. Cues for sit to stand transfers and to ambulate to chair with RW 3 feet with cues on how to turn RW. Pt sits in chair and then has to return to standing 2 more times while brief is changed. Standing tolerance of 2 mins each time Total Therapy Minutes 24 Total Physical Therapy Units 2 Daily Note Summary Improve ability to understand therapist today compared to yesterday. Pt has good seated balance. Mild unsteadiness when first standing up but utilizes RW to steady herself. CGA for safety needed with ambulation
--- NOTE | 2023-12-09 10:25 | SWNOTE1 ---
Pt can return to [facility] today. ENIO called and spoke to Ana, pt's nurse at [facility] to let her know. Ana is going to look in to transportation for pt. Trips will not transport since she is covid positive. Will possible need to set up stretcher transport for pt. ENIO to call pt's son as well.
--- NOTE | 2023-12-09 10:43 | CM.NOTE ---
Rounds made with Dr. Murillo. Dr Murillo discussed plan of care with Eleonora and plan is to discharge back to [facility] today.
--- NOTE | 2023-12-09 10:50 | P.DS_ITS ---
DS: Providers Provider Date of admission: 12/06/23 21:46 Primary care physician: Non-Staff PhysicianMD Admitting clinician: Shaikh Chidi Attending physician on admission: Shaikh Chidi Consults: 12/07/23 09:00 Occupational Therapy Eval and Treat Routine Reason for consultation: Weakness Has provider been notified: No Physical Therapy Eval and Treat Routine Reason for consultation: Weakness Has provider been notified: No 12/07/23 10:38 Occupational Therapy Eval and Treat Routine Reason for consultation: Ambulatory dysfunction/weakness Physical Therapy Eval and Treat Routine Reason for consultation: Ambulatory dysfunction/weakness 12/07/23 18:23 Consult to Cardiology Routine Reason for consultation: Acute on chronic diastolic HF 12/08/23 10:38 Consult to Wound Care Routine Consulting Provider: Jose David Gonzalez Reason for consultation: Stasis dermatitis/LE Attending physician on discharge: Shaikh Chidi Discharging clinician: Shaikh Chidi Anticipated date of discharge: 12/09/23 DS: Diagnosis Discharge Diagnosis (1) Acute respiratory failure with hypoxia: Assessment and plan: Improved. Not on oxygen anymore. Secondary to acute on chronic diastolic heart failure/COVID/pneumonia (2) COVID-19: Assessment and plan: Doing better. On room air now. Will discharge on oral tachycardia (3) Acute on chronic diastolic (congestive) heart failure: Assessment and plan: More or less euvolemic now. Will need to follow-up with cardiology as outpatient. Will need to continue taking oral Lasix 40 twice daily. (4) Left lower lobe pneumonia: Assessment and plan: Left lower lobe infiltrate on chest x-ray. Will discharge on oral Levaquin. Qualifiers: Pneumonia type: due to unspecified organism Qualified Code(s): J18.9 - Pneumonia, unspecified organism (5) AMS (altered mental status): Assessment and plan: Back to her baseline. Follow-up as outpatient Qualifiers: Altered mental status type: somnolence Qualified Code(s): R40.0 - Somnolence (6) Anemia: Assessment and plan: Hemoglobin is stable since 1 unit of transfusion. Will resume Eliquis. Will need close follow-up and monitoring. Qualifiers: Anemia type: iron deficiency Iron deficiency anemia type: chronic blood loss Qualified Code(s): D50.0 - Iron deficiency anemia secondary to blood loss (chronic) (7) Hypokalemia: Assessment and plan: Monitor and replete as needed (8) Fever determined by examination: Assessment and plan: Due to COVID. Afebrile now (9) Hypothyroidism (acquired): Assessment and plan: Continue with thyroxine (10) Dementia: Assessment and plan: Outpatient follow-up with neurology. Qualifiers: Alzheimer's disease onset: unspecified onset Dementia behavioral or psychological symptom: with mood disturbance Dementia severity: severe Dementia type: Alzheimer's Qualified Code(s): G30.9 - Alzheimer's disease, unspecified; F02.C3 - Dementia in other diseases classified elsewhere, severe, with mood disturbance (11) Hypertension: Assessment and plan: Continue with home medications. Blood pressure is stable. Qualifiers: Hypertension type: unspecified Qualified Code(s): I10 - Essential (primary) hypertension (12) Atrial fibrillation: Assessment and plan: Goes in and out of A-fib. Rate was poorly controlled because she could not previously take Lopressor. Rate is well-controlled now. Resume Eliquis for stroke prophylaxis. Monitor as outpatient with cardiology Qualifiers: Atrial fibrillation type: persistent (not longstanding) Qualified Code(s): I48.19 - Other persistent atrial fibrillation (13) Chronic stasis dermatitis: Assessment and plan: Recommend outpatient follow-up with wound/vein clinic DS: Summary Hospital Course Hospital Course: 83-year-old female presented to ER with confusion, shortness of breath, lower extremity edema. Patient admitted for acute respiratory failure with hypoxia secondary to acute on chronic diastolic heart failure, COVID-pneumonia. She was treated with IV Lasix with progressive improvement in her respiratory status and volume status. She was also given oral Decadron for COVID-pneumonia. Patient was treated with Ventolin as needed for bronchospasm. Patient was also noted to be anemic and received 1 unit of blood for anemia. Her Eliquis was withheld as her anemia workup was consistent with iron deficiency anemia and she was treated with IV Protonix. Her hemoglobin remained stable and there was no evidence of overt GI bleed and hence I feel he can resume Eliquis with close monitoring for GI bleed. Heart rate remained poorly controlled but is now improved since she has been able to use oral Lopressor. Chest x-ray showed left lower lobe infiltrate which could be superimposed bacterial pneumonia for which she will be discharged on oral Levaquin. Cardiology was consulted and appreciate their input. Patient is stable for discharge medically. She can follow-up with PCP in 1 to 2 weeks and follow-up with cardiology in 2 to 3 weeks. Status at Discharge Functional status at discharge: uses cane/walker Overall status at discharge: patient is back to baseline Time Spent with Patient Time attestation: Total time spent providing and/or coordinating discharge services: Time spent: greater than 30 minutes Exam Constitutional Vital Signs, click to edit/add: Last Vital Signs Temp 98.1 F 12/09/23 04:49 Pulse 77 12/09/23 10:29 Resp 16 12/09/23 10:29 BP 117/72 12/09/23 04:49 Pulse Ox 91 L 12/09/23 10:29 O2 Del Method Room Air 12/09/23 10:29 O2 Flow Rate 2 12/09/23 04:49 Documenting provider has reviewed patient's vital signs: yes General appearance: cooperative, comfortable, ill appearing and frail appearing Nutritional appearance: obese HENMT Common normals: normocephalic and head/scalp atraumatic Respiratory Common normals: normal respiratory effort and no use of accessory muscles Effort & inspection: able to speak in complete sentences Auscultation: diminished lung sounds Cardio Common normals: no JVD, regular rhythm, S1 normal heart sound and S2 normal heart sound GI Common normals: Normal to inspection, nondistended, normoactive bowel sounds present, soft to palpation, non-tender and no hepatosplenomegaly Extremity Other: Chronic venous stasis, LE edema. Neuro Common normals: oriented x3, no focal motor deficits and no sensory deficits noted Other: Intermittently confused. Psych Common normals: denies homicidal ideation and denies suicidal ideation DS: Data Data Completed and Pending Labs on day of discharge: Labs from last 24 hours 12/09/23 12/08/23 05:53 05:59 WBC 3.5 L RBC 4.23 Hgb 9.4 L Hct 30.7 L MCV 72.6 L MCH 22.2 L MCHC 30.6 RDW 22.3 H Plt Count 190 MPV 9.8 Neut % (Auto) 60.5 Lymph % (Auto) 29.1 Worth % (Auto) 9.8 Eos % (Auto) 0.0 L Baso % (Auto) 0.3 Neut # (Auto) 2.1 Lymph # (Auto) 1.0 L Worth # (Auto) 0.3 Eos # (Auto) 0.0 Baso # (Auto) 0.0 Abs Immat Gran (auto) 0.01 Imm/Tot Granulo (auto) 0.3 Sodium 140 Potassium 3.3 L Chloride 101 Carbon Dioxide 31.7 Anion Gap 10.6 BUN 13.0 Creatinine 0.99 Est GFR ( Amer) >60 Est GFR (Non-Af Amer) 53 L BUN/Creatinine Ratio 13.1 Glucose 148 H Calcium 8.1 L Total Bilirubin 0.8 AST 19 ALT 13 L Alkaline Phosphatase 115 NT-Pro-B Natriuret Pep 3027.0 H* Total Protein 6.9 Albumin 2.3 L Globulin 4.6 Albumin/Globulin Ratio 0.5 Discharge Plan Discharge Disposition: Home Health Service Discharge Medications: New dexamethasone 6 mg tablet 6 mg PO DAILY Qty: 7 0RF levofloxacin 750 mg tablet 750 mg PO DAILY 7 Days Qty: 7 0RF Continued spironolactone 25 mg tablet 25 mg PO DAILY cyanocobalamin (vitamin B-12) [Vitamin B-12] 100 mcg tablet 100 mcg PO DAILY cholecalciferol (vitamin D3) [Vitamin D3] 50 mcg (2,000 unit) capsule 50 mcg PO DAILY acetaminophen 500 mg capsule 500 mg PO .q8 PRN (Reason: pain) brimonidine 0.025 % drops 1 drp ophthalmic (eye) BID Rx Instructions: right eye furosemide [Lasix] 40 mg tablet 40 mg PO DAILY PRN (Reason: edema) Qty: 0 0RF Rx Instructions: 1 tab by mouth once daily twice a week on Thursday and as needed for edema quetiapine 25 mg tablet 25 mg PO DAILY furosemide 40 mg tablet 40 mg PO Q12H levothyroxine 25 mcg tablet 25 mcg PO DAILY citalopram 20 mg tablet 20 mg PO DAILY losartan 25 mg tablet 25 mg PO DAILY metoprolol tartrate 25 mg tablet 25 mg PO TID Eliquis 5 mg tablet 5 mg PO Q12H melatonin 5 mg capsule 5 mg PO QPM quetiapine [Seroquel] 25 mg tablet 50 mg PO QPM magnesium oxide 400 mg magnesium tablet 400 mg PO .qod Activity: increase activity as tolerated Diet: advance to your usual diet Print Language: [place] Sudanese Forms: Portal Instructions Follow Up Appointments: f/u with PCP in one week F/u with Cardiology in 1-2 weeks
[2023-12-09] MEDS: FUROSEMIDE 40 MG/4 ML VIAL IVP ×2 (10:55→20:02)
--- NOTE | 2023-12-09 12:04 | SWNOTE1 ---
Pt is ready for dc back to [facility]. Pt is covid positive and can't go by trips. ENIO called [facility] and they will not have availabiltiy until around 6:30pm. ENIO called [facility] and they are not sure on time but requested SW send over paperwork. SW filled out paperwork and sent over with face sheet. ENIO spoke with Ana at [facility] and pt's scripts were sent to wrong pharmacy. Ana provided correct pharmacy. Pt does not have any family in area to pickup driver prescriptions. ENIO reached out to doctor but he was out of hospital already. ENIO called [facility] and they will not release prescriptions to other pharmacy without them calling. ENIO called [facility] and spoke to a gentleman who will attempt to call [facility]. He voiced he will call back either way and let ENIO know. ENIO updated nursing and doctor. SW to call [facility] around 1:00pm if they do not call with a time. ENIO sent over dc med rec and dc summary to [facility]. ENIO sent dc med rec, CRF, and dc summary to [facility].
--- NOTE | 2023-12-09 12:37 | SWNOTE1 ---
ENIO received a call back from Curtis at [facility] and they contacted [facility] in [place] and prescriptions have been transferred over. ENIO let doctor know and [facility].
--- NOTE | 2023-12-09 13:03 | SWNOTE1 ---
SW called [facility] to see if they have a time yet, they do not and will call SW back once the canvas goods supervisor lets them know time.
--- NOTE | 2023-12-09 14:08 | SWNOTE1 ---
ENIO called [facility] and they are still unsure of time. ENIO called [facility] and they now will not have transport until 9:30. ENIO went ahead and set up [facility] for that time. ENIO notified nursing, pt's son Cristino, and Bimal Ellisons of time. ENIO took packet out to the floor.
[2023-12-09] MEDS: ACETAMINOPHEN 325 MG TABLET 650 MG PO (20:02)
--- NOTE | 2023-12-10 12:32 | CM.DCFOLLOWU ---
Patient is from [facility] and has [facility] coming in
== END 2023-12-09 21:56 | disposition home health service (06) | DRG 291 ==
LOC: ER 20:26 → MS 21:58
PROVIDERS: Registered Nurse; Admitting Provider Internal Medicine; Emergency Provider Internal Medicine; Visit Provider Internal Medicine
DX: I11.0 Hypertensive heart disease with heart failure (principal); I50.33 Acute on chronic diastolic (congestive) heart failure; J96.01 Acute respiratory failure with hypoxia; U07.1 COVID-19; J12.82 Pneumonia due to coronavirus disease 2019; J15.9 Unspecified bacterial pneumonia; F02.C3 Dementia in other diseases classified elsewhere, severe, with mood disturbance; I48.19 Other persistent atrial fibrillation; I31.39 Other pericardial effusion (noninflammatory); E03.9 Hypothyroidism, unspecified; Z86.73 Personal history of transient ischemic attack (TIA), and cerebral infarction without residual deficits; Z96.643 Presence of artificial hip joint, bilateral; Z96.653 Presence of artificial knee joint, bilateral; I87.2 Venous insufficiency (chronic) (peripheral); Z79.01 Long term (current) use of anticoagulants; Z79.899 Other long term (current) drug therapy; Z79.890 Hormone replacement therapy; D50.0 Iron deficiency anemia secondary to blood loss (chronic); E87.6 Hypokalemia; G30.9 Alzheimer's disease, unspecified; R40.0 Somnolence; H91.90 Unspecified hearing loss, unspecified ear; I07.1 Rheumatic tricuspid insufficiency; I27.20 Pulmonary hypertension, unspecified
CPT/HCPCS: 36415; 36430; 36600; 51701; 70450; 71045; 80048; 80053; 81001; 82140; 82607; 82728; 82746; 82805; 83540; 83550; 83605; 83880; 84466; 84484; 85025; 86850; 86900; 86901; 86923; 87086; 87635; 87811; 93005; 93308; 94640; 94761; 96365; 96366; 96375; 96376; 97110; 97161; 97165; 97530; 99285; J1940; J3480; J8540; P9016

== ENCOUNTER 2023-12-15 09:40 | Observation (INO) | payer MEDICARE, SELFPAY ==
[2023-12-15] VITALS (8 sets, daily range): BP systolic 132–135; BP diastolic 72–78; PULSE 97–113; TEMP 36.4–36.6; O2SAT 94–100; BMI 31.2
--- NOTE | 2023-12-15 09:55 | ECG_ITS ---
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
--- NOTE | 2023-12-15 10:00 | ED.AMS1 ---
HPI - Altered Mental Status General Chief Complaint: Altered Mental Status Stated Complaint: CONFUSION Time Seen by Provider: 12/15/23 09:46 Mode of arrival: ambulance History of Present Illness HPI narrative: 83-year-old female to the emergency department from [facility] for altered mental status. No report received from facility. Report received through EMS. Patient is reported to normally be alert and oriented to self and place and combative/agitated. Today she is pleasant and passive, alert only to self. She is being treated for cellulitis of her lower extremities. No recent falls or injuries that are known. No fevers at the facility. Patient has no complaints at this time. Related Data Home Medications ?Medication ?Instructions ?Recorded ?Confirmed apixaban 5 mg tablet (Eliquis) 5 mg PO Q12H 06/11/23 12/15/23 citalopram 20 mg tablet 20 mg PO DAILY 06/11/23 12/15/23 furosemide 40 mg tablet 40 mg PO Q12H 06/11/23 12/15/23 levothyroxine 25 mcg tablet 25 mcg PO DAILY 06/11/23 12/15/23 losartan 25 mg tablet 25 mg PO DAILY 06/11/23 12/15/23 magnesium oxide 400 mg PO .qod 06/11/23 12/15/23 melatonin 5 mg capsule 5 mg PO QPM 06/11/23 12/15/23 metoprolol tartrate 25 mg tablet 25 mg PO TID 06/11/23 12/15/23 quetiapine 25 mg tablet 25 mg PO DAILY 06/11/23 12/15/23 quetiapine 25 mg tablet (Seroquel) 50 mg PO QPM 06/11/23 12/15/23 acetaminophen 500 mg capsule 500 mg PO .q8 PRN pain 12/06/23 12/15/23 brimonidine 0.025 % eye drops 1 drp ophthalmic (eye) BID 12/06/23 12/15/23 cholecalciferol (vitamin D3) 50 50 mcg PO DAILY 12/06/23 12/15/23 mcg (2,000 unit) capsule (Vitamin D3) cyanocobalamin (vitamin B-12) 100 100 mcg PO DAILY 12/06/23 12/15/23 mcg tablet (Vitamin B-12) spironolactone 25 mg tablet 25 mg PO DAILY 12/06/23 12/15/23 Previous Rx's ?Medication ?Instructions ?Recorded furosemide 40 mg tablet (Lasix) 40 mg PO DAILY PRN edema #0 tabs 12/09/23 Allergies Allergy/AdvReac Type Severity Reaction Status Date / Time cephalexin [From Keflex] Allergy Mild Rash Verified 12/06/23 19:14 potassium chloride Allergy Mild Rash Verified 12/06/23 19:14 [id number]-[id number] Reductase Allergy Mild Abdominal Verified 12/06/23 19:14 Inhibitor Pain black pepper Allergy Unknown Rash Verified 12/06/23 19:14 Review of Systems ROS Status of ROS 10 or more systems reviewed and unremarkable except as noted in history and below [facility] Medical History (Updated 12/15/23 @ 12:18 by Rico Rowley MD) COVID-19 ?U07.1 - COVID-19 (ICD-10) Anemia ?D64.9 - Anemia, unspecified (ICD-10) Acute on chronic diastolic (congestive) heart failure ?I50.33 - Acute on chronic diastolic (congestive) heart failure (ICD-10) Chronic stasis dermatitis ?I87.2 - Venous insufficiency (chronic) (peripheral) (ICD-10) Edema of both lower legs ?R60.0 - Localized edema (ICD-10) Congestive heart failure ?I50.9 - Heart failure, unspecified (ICD-10) Dementia ?F03.90 - Unspecified dementia, unspecified severity, without behavioral disturbance, psychotic disturbance, mood disturbance, and anxiety (ICD-10) Pericardial effusion without cardiac tamponade ?I31.39 - Other pericardial effusion (noninflammatory) (ICD-10) Tricuspid valve regurgitation, nonrheumatic ?I36.1 - Nonrheumatic tricuspid (valve) insufficiency (ICD-10) Right heart failure ?I50.810 - Right heart failure, unspecified (ICD-10) Hypoxia ?R09.02 - Hypoxemia (ICD-10) Acute congestive heart failure ?I50.9 - Heart failure, unspecified (ICD-10) Pleural effusion ?J90 - Pleural effusion, not elsewhere classified (ICD-10) Congestive heart failure ?I50.9 - Heart failure, unspecified (ICD-10) Hypothyroidism (acquired) ?E03.9 - Hypothyroidism, unspecified (ICD-10) CVA (cerebral vascular accident) ?I63.9 - Cerebral infarction, unspecified (ICD-10) Hypertension ?I10 - Essential (primary) hypertension (ICD-10) Atrial fibrillation ?I48.91 - Unspecified atrial fibrillation (ICD-10) Surgical History H/O bilateral hip replacements ?Z96.643 - Presence of artificial hip joint, bilateral (ICD-10) History of bilateral knee replacement ?Z96.653 - Presence of artificial knee joint, bilateral (ICD-10) Family History Father Family history of myocardial infarction Family history of hypertension Mother Family history of myocardial infarction Family history of hypertension Social History (Updated 12/06/23 @ 22:34 by Arlette Costa) Within the past year, how often did you have a drink containing alcohol: 2-3 times a week Smoking status: Never smoker Non-prescribed substance use: denies use Previous occupational history: retired Highest level of school completed/degree received: 11th grade Little interest or pleasure in doing things: not at all Feeling down, depressed, or hopeless: not at all Feel stressed/tense/nervous/anxious/difficulty sleeping: not at all Exam Narrative Exam Narrative: VITALS: I have reviewed the triage vital signs. GENERAL: Elderly obese female in no distress NEURO: Alert and oriented x 1 (person). Moves all extremities. Face is symmetric and expressive. EYES: PERRL. No scleral icterus or conjunctival injection. No discharge. HENT: Normocephalic, atraumatic. Hearing is grossly intact. Nares grossly patent and without discharge. Mucous membranes moist. NECK: No JVD. Patient moves neck without restriction. CARDIO: Rhythm regular. Normal rate. No murmur, rub, or gallop. Pulses equal bilaterally in the upper and lower extremity. Bilateral 2+ lower extremity edema. PULM: Lungs clear to auscultation in all [place]. No wheezes, rales, or rhonchi. No conversational dyspnea. No splinting, stridor, or accessory muscle use. Dry cough on exam GI/: Abdomen is soft and non-tender. Normoactive bowel sounds. EXTREMITIES: Symmetric muscle bulk. No joint swelling. No clubbing, cyanosis, or deformity. Multiple small open wounds to the lower extremities. Redness and warmth on the left leg greater than the right. Follow odor from the left leg SKIN: Warm and dry. Normal turgor. No rash or lesions appreciated. PSYCH: Pleasantly confused Constitutional Vital Signs, click to edit/add: Last Vital Signs Temp 98 F 12/15/23 09:42 Pulse 105 H 12/15/23 11:20 Resp 14 12/15/23 11:20 BP 132/78 12/15/23 09:42 Pulse Ox 97 12/15/23 10:00 O2 Del Method Room Air 12/15/23 09:42 Course Vital Signs Vital signs: Vital Signs Temperature 98 F 12/15/23 09:42 Pulse Rate 99 H 12/15/23 09:42 Respiratory Rate 20 12/15/23 09:42 Blood Pressure 132/78 12/15/23 09:42 Pulse Oximetry 100 12/15/23 09:42 Oxygen Delivery Method Room Air 12/15/23 09:42 Temperature 98 F 12/15/23 09:42 Pulse Rate 105 H 12/15/23 11:20 Respiratory Rate 14 12/15/23 11:20 Blood Pressure 132/78 12/15/23 09:42 Pulse Oximetry 97 12/15/23 10:00 Oxygen Delivery Method Room Air 12/15/23 09:42 MDM - Altered Mental Status MDM Narrative Medical decision making narrative: 83-year-old female to the emergency department from [facility] with chief complaint of altered mental status and cellulitis of her left lower extremity. Vital stable, the patient is afebrile. She is pleasantly confused alert only to herself. No visible evidence of trauma. Workup initiated. Exam is consistent with cellulitis to left lower extremity. Her lower extremities are neurovascularly intact. CT head and chest x-ray to be obtained. [facility] paperwork is reviewed. She has a history of atrial fibrillation, CVA, hypertension, dementia. She is currently on Levaquin and Lasix for her extremity edema. EMS report from facility is that she is full code. Imaging is without acute findings. Lab work reviewed, mild hypokalemia. No other acute findings. Likely metabolic encephalopathy in the setting of cellulitis. She has failed outpatient treatment. She is placed on vancomycin and Levaquin. Case discussed with the hospitalist who agrees admit the patient to his service. Medical Records Attestation: I reviewed the patient's medical records. ([facility] medication reconciliation and facesheet) Lab Data Attestation: I reviewed the patient's lab results. Labs: Lab Results 12/15/23 12/15/23 12/15/23 Range/Units 09:49 10:06 11:22 WBC 9.2 (4.0-11.0) 10^3/uL RBC 5.13 (4.20-5.40) 10^6/uL Hgb 11.5 L (12.0-16.0) g/dL Hct 38.0 (36.0-48.0) % MCV 74.1 L (81.0-99.0) fL MCH 22.4 L (26.7-34.0) pg MCHC 30.3 (29.9-35.2) g/dL RDW 24.3 H (11.0-15.0) % Plt Count 208 (150-450) 10^3/uL MPV 9.7 (9.5-13.5) fL Neut % (Auto) 61.2 (43.0-75.0) % Lymph % (Auto) 24.6 (20.5-60.0) % [place] % (Auto) 12.9 H (1.7-12.0) % Eos % (Auto) 0.9 (0.9-7.0) % Baso % (Auto) 0.1 L (0.2-2.0) % Neut # (Auto) 5.6 (1.4-6.5) 10^3/uL Lymph # (Auto) 2.3 (1.2-3.8) 10^3/uL [place] # (Auto) 1.2 H (0.3-0.8) 10^3/uL Eos # (Auto) 0.1 (0.0-0.7) 10^3/uL Baso # (Auto) 0.0 (0.0-0.1) 10^3/uL Abs Immat Gran (auto) 0.03 (0.00-0.03) 10^3/uL Imm/Tot Granulo (auto) 0.3 (0.0-0.5) % PT 13.6 H (9.0-11.6) sec INR 1.32 Sodium 140 (136-145) mmol/L Potassium 3.1 L (3.5-5.1) mmol/L Chloride 101 (98-107) mmol/L Carbon Dioxide 32.9 H (21.0-32.0) mmol/L Anion Gap 9.2 BUN 30.0 H (7.0-18.0) mg/dL Creatinine 1.22 H (0.55-1.02) mg/dL Est GFR ( Amer) 51 L (>=60) Est GFR (Non-Af Amer) 42 L (>=60) BUN/Creatinine Ratio 24.6 Glucose 80 (74-106) mg/dL Lactate 1.4 (0.4-2.0) mmol/L Calcium 8.6 (8.5-10.1) mg/dL Total Bilirubin 1.2 H (0.2-1.0) mg/dL AST 12 L (15-37) U/L ALT 17 (14-59) U/L Alkaline Phosphatase 102 (46-116) U/L Troponin I High Sens 9.5 (4.0-51.3) pg/mL Total Protein 7.5 (6.4-8.2) g/dL Albumin 2.9 L (3.4-5.0) g/dL Globulin 4.6 g/dL Albumin/Globulin Ratio 0.6 Urine Color Lt. yellow (YELLOW) Urine Clarity Clear (CLEAR) Urine pH 6.5 (5.0-9.0) Ur Specific [place] 1.025 (1.005-1.025) Urine Protein Negative (NEG/TRACE) mg/dL Urine Glucose (UA) Negative (NEGATIVE) mg/dL Urine Ketones Negative (NEGATIVE) mg/dL Urine Occult Blood Moderate A (NEGATIVE) Urine Nitrite Negative (NEGATIVE) Urine Bilirubin Negative (NEGATIVE) Urine Urobilinogen 1.0 (0.2-1.0) EU/dL Ur Leukocyte Esterase Small A (NEGATIVE) Urine RBC 5-10 A (0-2) #/HPF Urine WBC 2-5 A (NONE SEEN) #/HPF Ur Squamous Epith Cells Many A (NONE/RARE) #/LPF Ur Transition Epith Cell Moderate A (NONE SEEN) #/LPF Urine Crystals None seen (None Seen) #/HPF Urine Bacteria Trace A (NONE SEEN) #/HPF Urine Casts None seen (NONE SEEN) #/LPF Urine Mucus None seen (NONE SEEN) Ur Culture Indicated? Yes POC Glucose 81 (74-106) mg/dL Imaging Data Imaging: Radiologist's impression: ITS Impressions Chest X-Ray 12/15/23 10:10 IMPRESSION: 1. Low lung volume examination with lingular infiltrates and suspected pleural effusion. Suspect slight improvement compared prior study. 2. Stable cardiomegaly. Electronically authenticated by: MÓNICA DOBSON Date: 12/15/2023 10:[address] 12/15/23 10:16 IMPRESSION: No acute intracranial abnormality. Atrophy and remote right MCA distribution infarct redemonstrated. Electronically authenticated by: SMITHA ANTHONY Date: 12/15/2023 10:23 ECG Data Attestation: I personally reviewed and interpreted this ECG as follows: (Atrial fibrillation at a rate of 62. No STEMI. Long QTc at 580.) Discharge Plan Discharge Chief Complaint: Altered Mental Status Clinical Impression: Acute metabolic encephalopathy, Morbid obesity, Cellulitis, Failure of outpatient treatment Patient Disposition: Admitted as Observation Time of Disposition Decision: 12:18 Condition: Fair Prescriptions / Home Meds: No Action spironolactone 25 mg tablet 25 mg PO DAILY cyanocobalamin (vitamin B-12) [Vitamin B-12] 100 mcg tablet 100 mcg PO DAILY cholecalciferol (vitamin D3) [Vitamin D3] 50 mcg (2,000 unit) capsule 50 mcg PO DAILY acetaminophen 500 mg capsule 500 mg PO .q8 PRN (Reason: pain) brimonidine 0.025 % drops 1 drp ophthalmic (eye) BID Rx Instructions: right eye furosemide [Lasix] 40 mg tablet 40 mg PO DAILY PRN (Reason: edema) Qty: 0 0RF Rx Instructions: 1 tab by mouth once daily twice a week on Thursday and as needed for edema quetiapine 25 mg tablet 25 mg PO DAILY furosemide 40 mg tablet 40 mg PO Q12H levothyroxine 25 mcg tablet 25 mcg PO DAILY citalopram 20 mg tablet 20 mg PO DAILY losartan 25 mg tablet 25 mg PO DAILY metoprolol tartrate 25 mg tablet 25 mg PO TID Eliquis 5 mg tablet 5 mg PO Q12H melatonin 5 mg capsule 5 mg PO QPM quetiapine [Seroquel] 25 mg tablet 50 mg PO QPM magnesium oxide 400 mg magnesium tablet 400 mg PO .qod Print Language: Frisian Referrals: Physician,Non-Staff, MD [Primary Care Provider] - 1 week
[2023-12-15 10:07] LABS: Basophils Percent Auto 0.1 % (0.2-2.0); Eosinophils Absolute Auto 0.1 10^3/uL (0.0-0.7); Eosinophils Percent Auto 0.9 % (0.9-7.0); Hemoglobin 11.5 g/dL (12.0-16.0); Immature Granulocytes Abs Auto 0.03 10^3/uL (0.00-0.03); Immature Granulocytes Pct Auto 0.3 % (0.0-0.5); Lymphocytes Absolute Auto 2.3 10^3/uL (1.2-3.8); Lymphocytes Percent Auto 24.6 % (20.5-60.0); Mean Corpuscular HGB Conc 30.3 g/dL (29.9-35.2); Mean Corpuscular Hemoglobin 22.4 pg (26.7-34.0); Mean Corpuscular Volume 74.1 fL (81.0-99.0); Mean Platelet Volume 9.7 fL (9.5-13.5); Monocytes Absolute Auto 1.2 10^3/uL (0.3-0.8); Monocytes Percent Auto 12.9 % (1.7-12.0); Neutrophils Absolute Auto 5.6 10^3/uL (1.4-6.5); Neutrophils Percent Auto 61.2 % (43.0-75.0); Platelet Count 208 10^3/uL (150-450); Red Blood Count 5.13 10^6/uL (4.20-5.40); Red Cell Distribution Width 24.3 % (11.0-15.0); White Blood Count 9.2 10^3/uL (4.0-11.0)
[2023-12-15 10:08] LABS: Glucometer 81 mg/dL (74-106)
--- NOTE | 2023-12-15 10:10 | XR_ITS ---
The [address] [address] Patient Name: SUJATA BERRIOS MRN: [id number] date: 1940 Sex: F Assigned Patient Location: ER Current Patient Location: ER Accession/Order Number: [id number] Exam Date: 12/15/2023 10:05 Report Date: 12/15/2023 10:30 At the request of: JOSE ARMANDO PERKINS Procedure: XR chest 1V EXAMINATION: XR chest 1V HISTORY: AMS, Cough COMPARISON: XR chest 12/08/2023 FINDINGS: LUNGS: Underexpanded lungs with opacification within left lung base obscuring the lateral costophrenic angle. VASCULATURE: No increased pulmonary vasculature. PLEURA: Possible pleural effusion. No pneumothorax. CARDIAC: Cardiomegaly. MEDIASTINUM: No visible mass or adenopathy. BONES: No fracture or visible bone lesion. OTHER: Negative. XR/XR chest 1V IMPRESSION: 1. Low lung volume examination with lingular infiltrates and suspected pleural effusion. Suspect slight improvement compared prior study. 2. Stable cardiomegaly. Electronically authenticated by: MÓNICA DOBSON Date: 12/15/2023 10:30
--- NOTE | 2023-12-15 10:16 | CT_ITS ---
The [address] [address] Patient Name: SUJATA BERRIOS MRN: [id number] date: 1940 Sex: F Assigned Patient Location: ER Current Patient Location: ER Accession/Order Number: [id number] Exam Date: 12/15/2023 10:10 Report Date: 12/15/2023 10:23 At the request of: JOSE ARMANDO PERKINS Procedure: CT stroke head/brain wo con NONCONTRAST HEAD CT COMPARISON: Head CT, 8 days ago. CLINICAL HISTORY: Confusion since yesterday. TECHNIQUE: Routine noncontrast images of the brain obtained. CT examination of the head without IV contrast. Dose reduction techniques were achieved by using: automated exposure control and/or adjustment of mA and /or kV according to patient size and/or use of iterative reconstruction technique. FINDINGS: Paranasal sinuses and mastoid air cells are clear. Intraorbital contents are unremarkable. No acute bony abnormality. Intracranially, there is no evidence of hemorrhage, mass effect, or midline shift. Severe brain atrophy. Previous right MCA distribution infarct. Dense carotid calcifications.. CT/CT stroke head/brain wo con IMPRESSION: No acute intracranial abnormality. Atrophy and remote right MCA distribution infarct redemonstrated. Electronically authenticated by: SMITHA ANTHONY Date: 12/15/2023 10:23
[2023-12-15 10:25] LABS: Alanine Aminotransferase 17 U/L (14-59); Albumin Globulin Ratio 0.6; Albumin Level 2.9 g/dL (3.4-5.0); Alkaline Phosphatase 102 U/L (46-116); Anion Gap 9.2; Aspartate Amino Transferase 12 U/L (15-37); BUN Creatinine Ratio 24.6; Bilirubin Total 1.2 mg/dL (0.2-1.0); Calcium 8.6 mg/dL (8.5-10.1); Carbon Dioxide 32.9 mmol/L (21.0-32.0); Chloride 101 mmol/L (98-107); Estimated GFR (African America 51 (>=60); Estimated GFR (Non-African Ame 42 (>=60); Globulin 4.6 g/dL; Glucose 80 mg/dL (74-106); Lactate/Lactic Acid 1.4 mmol/L (0.4-2.0); Potassium 3.1 mmol/L (3.5-5.1); Sodium 140 mmol/L (136-145); Total Protein 7.5 g/dL (6.4-8.2)
[2023-12-15 10:28] LABS: Troponin I High Sensitivity 9.5 pg/mL (4.0-51.3)
[2023-12-15 10:32] LABS: INR 1.32; Prothrombin Time 13.6 sec (9.0-11.6)
[2023-12-15 11:32] LABS: Bilirubin Urine NEGATIVE (NEGATIVE); Blood Urine MODERATE (NEGATIVE); Clarity Urine CLEAR (CLEAR); Color Urine LT. YELLOW (YELLOW); Glucose Urine UA NEGATIVE (NEGATIVE); Ketones Urine NEGATIVE (NEGATIVE); Leukocyte Esterase Urine SMALL (NEGATIVE); Nitrite Urine NEGATIVE (NEGATIVE); Protein Urine NEGATIVE (NEG/TRACE); Specific Gravity Urine 1.025 (1.005-1.025); Urine Microscopic Indicated YES; pH Urine 6.5 (5.0-9.0)
[2023-12-15 11:44] LABS: Mucus Urine NONE SEEN (NONE SEEN); Squamous Epithelial Cell Urine MANY #/LPF (NONE/RARE); Transitional Epi Cells Urine MODERATE #/LPF (NONE SEEN)
[2023-12-15 11:48] LABS: Bacteria Urine TRACE #/HPF (NONE SEEN); Cast Seen? NONE SEEN #/LPF (NONE SEEN); Crystals Seen? None Seen #/HPF (None Seen)
[2023-12-15 11:49] LABS: Urine Culture Indicated YES
[2023-12-15] MEDS: LEVOFLOXACIN IN DEXTROSE 5 % 750 MG/150 ML IV.SOLN 100 MG IV (11:52)
[2023-12-15] MEDS: POTASSIUM CHLORIDE 20 MEQ in 0.9 % SODIUM CHLORIDE 250 ML 130 MEQ IV (11:53)
--- NOTE | 2023-12-15 13:14 | P.HP_ITS ---
HPI H&P: HPI History of Present Illness Chief complaint: CONFUSION/AMS/CELLULITIS/ HYPOKALEMIA Narrative: History of presenting illness and Hospital course: 83-year-old female who lives in an assisted living facility was brought in for change in mental status and bilateral lower extremity cellulitis. She was recently admitted to the hospital for change in mental status secondary from COVID and was also treated for congestive heart failure. Patient has chronic bilateral lower extremity edema and venous stasis. She also has dementia and is very hard of hearing. She sometimes selectively chooses to not respond which can be confusing for providers who are not familiar with her. Upon my evaluation, she is at her baseline mental status. CT head was negative for any acute intracranial pathology. Chest x-ray shows improvement from prior x-ray. She answered all of my questions appropriately. She does have bilateral lower extremity edema, erythema and chronic venous stasis changes and I have low suspicion that she has lower extremity cellulitis. However it is not unreaso nable to treat her with oral Bactrim in case there is concurrent superimposed bacterial infection. Patient is stable for discharge on oral Bactrim. She was instructed to follow-up with PCP in 1 to 2 weeks. Opioid HPI Opioid Management Most Recent Pain and Opioid Data: Last Pain Scale 6 12/09/23 08:27 Last Pain Intensity 0 06/13/23 10:33 Last Pain Assessment 12/09/23 21:37 Last ORT Total Score 0 12/06/23 22:00 Last ORT Risk Category Low Risk 12/06/23 22:00 Review of Systems ROS Status of ROS 10 or more systems reviewed and unremark able except as noted in history and below [facility] Medical History (Updated 12/15/23 @ 13:23 by Shaikh Chidi MD) COVID-19 ?U07.1 - COVID-19 (ICD-10) Anemia ?D64.9 - Anemia, unspecified (ICD-10) Acute on chronic diastolic (congestive) heart failure ?I50.33 - Acute on chronic diastolic (congestive) heart failure (ICD-10) Chronic stasis dermatitis ?I87.2 - Venous insufficiency (chronic) (peripheral) (ICD-10) Edema of both lower legs ?R60.0 - Localized edema (ICD-10) Congestive heart failure ?I50.9 - Heart failure, unspecified (ICD-10) Dementia ?F03.90 - Unspecified dementia, unspecified severity, without behavioral disturbance, psychotic disturbance, mood disturbance, and anxiety (ICD-10) Pericardial effusion without cardiac tamponade ?I31.39 - Other pericardial effusion (noninflammatory) (ICD-10) Tricuspid valve regurgitation, nonrheumatic ?I36.1 - Nonrheumatic tricuspid (valve) insufficiency (ICD-10) Right heart failure ?I50.810 - Right heart failure, unspecified (ICD-10) Hypoxia ?R09.02 - Hypoxemia (ICD-10) Acute congestive heart failure ?I50.9 - Heart failure, unspecified (ICD-10) Pleural effusion ?J90 - Pleural effusion, not elsewhere classified (ICD-10) Congestive heart failure ?I50.9 - Heart failure, unspecified (ICD-10) Hypothyroidism (acquired) ?E03.9 - Hypothyroidism, unspecified (ICD-10) CVA (cerebral vascular accident) ?I63.9 - Cerebral infarction, unspecified (ICD-10) Hypertension ?I10 - Essential (primary) hypertension (ICD-10) Atrial fibrillation ?I48.91 - Unspecified atrial fibrillation (ICD-10) Surgical History H/O bilateral hip replacements ?Z96.643 - Presence of artificial hip joint, bilateral (ICD-10) History of bilateral knee replacement ?Z96.653 - Presence of artificial knee joint, bilateral (ICD-10) Family History Father Family history of myocardial infarction Family history of hypertension Mother Family history of myocardial infarction Family history of hypertension Social History (Updated 12/06/23 @ 22:34 by Arlette Costa) Within the past year, how often did you have a drink containing alcohol: 2-3 times a week Smoking status: Never smoker Non-prescribed substance use: denies use Previous occupational history: retired Highest level of school completed/degree received: 11th grade Little interest or pleasure in doing things: not at all Feeling down, depressed, or hopeless: not at all Feel stressed/tense/nervous/anxious/difficulty sleeping: not at all Meds Home Medications and Allergies Home Medications ?Medication ?Instructions ?Recorded ?Confirmed ?Type apixaban 5 mg tablet (Eliquis) 5 mg PO Q12H 06/11/23 12/15/23 History citalopram 20 mg tablet 20 mg PO DAILY 06/11/23 12/15/23 History furosemide 40 mg tablet 40 mg PO Q12H 06/11/23 12/15/23 History levothyroxine 25 mcg tablet 25 mcg PO DAILY 06/11/23 12/15/23 History losartan 25 mg tablet 25 mg PO DAILY 06/11/23 12/15/23 History magnesium oxide 400 mg PO .qod 06/11/23 12/15/23 History melatonin 5 mg capsule 5 mg PO QPM 06/11/23 12/15/23 History metoprolol tartrate 25 mg tablet 25 mg PO TID 06/11/23 12/15/23 History quetiapine 25 mg tablet 25 mg PO DAILY 06/11/23 12/15/23 History quetiapine 25 mg tablet (Seroquel) 50 mg PO QPM 06/11/23 12/15/23 History acetaminophen 500 mg capsule 500 mg PO .q8 PRN pain 12/06/23 12/15/23 History brimonidine 0.025 % eye drops 1 drp ophthalmic (eye) BID 12/06/23 12/15/23 History cholecalciferol (vitamin D3) 50 50 mcg PO DAILY 12/06/23 12/15/23 History mcg (2,000 unit) capsule (Vitamin D3) cyanocobalamin (vitamin B-12) 100 100 mcg PO DAILY 12/06/23 12/15/23 History mcg tablet (Vitamin B-12) spironolactone 25 mg tablet 25 mg PO DAILY 12/06/23 12/15/23 History furosemide 40 mg tablet (Lasix) 40 mg PO DAILY PRN edema #0 tabs 12/09/23 12/15/23 Rx Allergies Allergy/AdvReac Type Severity Reaction Status Date / Time cephalexin [From Keflex] Allergy Mild Rash Verified 12/06/23 19:14 potassium chloride Allergy Mild Rash Verified 12/06/23 19:14 [id number] Reductase Allergy Mild Abdominal Verified 12/06/23 19:14 Inhibitor Pain black pepper Allergy Unknown Rash Verified 12/06/23 19:14 Exam Constitutional Vital Signs, click to edit/add: Last Vital Signs Temp 98 F 12/15/23 09:42 Pulse 105 H 12/15/23 11:20 Resp 14 12/15/23 11:20 BP 132/78 12/15/23 09:42 Pulse Ox 97 12/15/23 10:00 O2 Del Method Room Air 12/15/23 09:42 Documenting provider has reviewed patient's vital signs: yes Common normals: no apparent distress and oriented x3 General appearance: frail appearing Nutritional appearance: obese Respiratory Common normals: normal respiratory effort and no use of accessory muscles Auscultation: diminished lung sounds Cardio Common normals: regular rate, S1 normal heart sound and S2 normal heart sound Rate: regular rate Heart sounds: S1 normal and S2 normal GI Common normals: Normal to inspection, nondistended, normoactive bowel sounds present, soft to palpation, non-tender and no hepatosplenomegaly Palpation: soft and no hepatosplenomegaly Extremity Other: Chronic LE edema. Chronic venous stasis changes. Mild erythema on left lower extremity that does not seem very different from before Neuro Common normals: oriented x3, moves all extremities and no focal motor deficits Psych Common normals: mental status grossly normal, denies hallucinations, denies homicidal ideation and denies suicidal ideation Results Labs Labs: Short CBC 12/15/23 Range/Units 09:49 WBC 9.2 (4.0-11.0) 10^3/uL Hgb 11.5 L (12.0-16.0) g/dL Hct 38.0 (36.0-48.0) % Plt Count 208 (150-450) 10^3/uL BMP 12/15/23 09:49 Sodium 140 Potassium 3.1 L Chloride 101 Carbon Dioxide 32.9 H BUN 30.0 H Creatinine 1.22 H Glucose 80 Calcium 8.6 Liver Function 12/15/23 Range/Units 09:49 Total Bilirubin 1.2 H (0.2-1.0) mg/dL AST 12 L (15-37) U/L ALT 17 (14-59) U/L Alkaline Phosphatase 102 (46-116) U/L Albumin 2.9 L (3.4-5.0) g/dL Urine 12/15/23 Range/Units 11:22 Urine Color Lt. yellow (YELLOW) Urine Clarity Clear (CLEAR) Urine pH 6.5 (5.0-9.0) Ur Specific [place] 1.025 (1.005-1.025) Urine Protein Negative (NEG/TRACE) mg/dL Urine Glucose (UA) Negative (NEGATIVE) mg/dL Assessment and Plan Assessment and Plan (1) Cellulitis: Assessment and Plan: Extremity edema, venous insufficiency, stasis dermatitis. Left lower extremity appears erythematous but she has no pain and it is very difficult to say for sure whether or not there is an ongoing active infection. Based on my clinical impression, it does not look very different from when she was discharged from the hospital 1 weeks ago. I will empirically treat her with oral Bactrim just in case Qualifiers: Site of cellulitis: extremity Site of cellulitis of extremity: lower extremity Laterality: left Qualified Code(s): L03.116 - Cellulitis of left lower limb (2) Chronic stasis dermatitis: Assessment and Plan: Patient follow-up with wound. (3) Edema of both lower legs: Assessment and Plan: From chronic venous insufficiency. Monitor as outpatient (4) Congestive heart failure: Assessment and Plan: More or less euvolemic. Continue with home medications. Qualifiers: Heart failure type: diastolic Heart failure chronicity: chronic Qualified Code(s): I50.32 - Chronic diastolic (congestive) heart failure (5) Dementia: Assessment and Plan: Patient has dementia with behavioral disturbances. Appears to be at her baseline. Qualifiers: Dementia type: Alzheimer's Alzheimer's disease onset: unspecified onset Dementia severity: severe Dementia behavioral or psychological symptom: with mood disturbance Qualified Code(s): G30.9 - Alzheimer's disease, unspecified; F02.C3 - Dementia in other diseases classified elsewhere, severe, with mood disturbance (6) Hypothyroidism (acquired): Assessment and Plan: Continue with levothyroxine (7) Hypertension: Assessment and Plan: Blood pressure is stable. Continue with home medications. Qualifiers: Hypertension type: unspecified Qualified Code(s): I10 - Essential (primary) hypertension (8) Atrial fibrillation: Assessment and Plan: Has persistent A-fib. Rate is controlled. On Eliquis for stroke prophylaxis. Qualifiers: Atrial fibrillation type: persistent (not longstanding) Qualified Code(s): I48.19 - Other persistent atrial fibrillation Plan Patient is stable for discharge. Will call in oral Bactrim for possible left lower extremity cellulitis
--- NOTE | 2023-12-15 13:33 | SWNOTE1 ---
Pt is from [facility]. Hospitalist was in room assessing and is discharging her back today. ENIO called Ana at [facility] to let her know. She did ask medical questions, ENIO advised her that ENIO will send updates and that the same hospitalist saw her last week that saw her today. ENIO faxed over ED note, H&P, diagnostic imaging, labs, vitals, nursing notes, and dc med list.
--- NOTE | 2023-12-15 13:43 | SWNOTE1 ---
ENIO called and set up [employer] transportation and they will be here at 7:30pm. ENIO notified nursing and pt's son, Cristino. Pt's son had some concerns as the [facility] is telling him one thing and the hospital another. He requested to speak to hospitalist. SW will reach out to hospitalist. ENIO provided Dr. Murillo with Cristino's phone number.
[2023-12-15] MEDS: VANCOMYCIN HCL 1,250 MG in 0.9 % SODIUM CHLORIDE 250 ML 166.667 MG IV (15:06)
== END 2023-12-15 17:17 | disposition home health service (06) ==
LOC: ER 12:18 → MS 12:49
PROVIDERS: Admitting Provider Internal Medicine; Emergency Provider Student in an Organized Health Care Education/Training Program; Visit Provider Internal Medicine
DX: L03.116 Cellulitis of left lower limb (principal); I87.2 Venous insufficiency (chronic) (peripheral); I50.32 Chronic diastolic (congestive) heart failure; G30.9 Alzheimer's disease, unspecified; F02.C3 Dementia in other diseases classified elsewhere, severe, with mood disturbance; E03.9 Hypothyroidism, unspecified; I11.0 Hypertensive heart disease with heart failure; I48.19 Other persistent atrial fibrillation; R60.9 Edema, unspecified; E66.9 Obesity, unspecified; Z68.31 Body mass index [BMI] 31.0-31.9, adult; Z86.16 Personal history of COVID-19; Z79.890 Hormone replacement therapy
CPT/HCPCS: 36415; 70450; 71045; 80053; 81001; 83605; 84484; 85025; 85610; 87040; 87086; 93005; 96365; 96366; 96367; 96368; 96376; 97162; 99285; G0378; J3370; J3480